=== PATIENT | female | born 1955 | race Caucasian/White ===

== ENCOUNTER → 2017-04-06 | Outpatient (CLI) | payer BC ==
--- NOTE | 2017-04-06 15:51 | XR ---
EXAMINATION TYPE: XR foot complete RT DATE OF EXAM: 04/06/2017 COMPARISON: NONE HISTORY: Pain and bruising TECHNIQUE: Three views are submitted. FINDINGS: There is a lucency through the distal phalanx of the first digit compatible with a fracture. Very mil d displacement. Remaining osseous structures intact and joint spaces preserved. IMPRESSION: 1. Minimally displaced fracture involving the body distal phalanx first digit. A Yellow message has been communicated to Stacia Parrish via the [employer] system on 04/06/2017 3:49 PM, Message ID [id number].
== END | disposition home or self-care (01) ==
LOC: RADXRYALE 15:37
PROVIDERS: ATTEND Physician Assistant Medical
DX: S92.911A Unspecified fracture of right toe(s), initial encounter for closed fracture (principal)

== ENCOUNTER → 2019-08-28 | Outpatient (CLI) | payer OTHER ==
--- NOTE | 2019-08-28 14:50 | XR ---
EXAMINATION TYPE: XR thoracic spine complete DATE OF EXAM: 08/28/2019 COMPARISON: None HISTORY: Upper Thoracic pain TECHNIQUE: Thoracic spine is examined in 3 projections. FINDINGS: Vertebral body alignment is normal. Disc heights appear preserved. There are some compressi on deformities in the lower thoracic spine. The greatest at T11 approximately 50% loss of vertebral b james height. No posterior wall displacement is evident. Superior L2 endplate compression deformity may also be present. In the frontal projection there is a scoliosis present with convexity to the right centered at T9. IMPRESSION: 1. Scoliosis. 2. Compression deformities in the region of T11 and L2 of indeterminate age. 3. Upper thoracic spine abnormalities not radiographically apparent.
== END | disposition home or self-care (01) ==
LOC: RADXRYALE 12:05
PROVIDERS: ATTEND Physician Assistant Medical
DX: M41.84 Other forms of scoliosis, thoracic region (principal); M43.8X5 Other specified deforming dorsopathies, thoracolumbar region; R93.7 Abnormal findings on diagnostic imaging of other parts of musculoskeletal system
CPT/HCPCS: 72072

== ENCOUNTER 2021-08-31 19:20 | Observation (INO) | payer MEDICARE ==
--- NOTE | 2021-08-31 19:48 | ED ---
Dizziness HPI - General Chief Complaint: Dizziness Stated Complaint: Dizziness Time Seen by Provider: 08/31/21 20:15 Source: patient, EMS Mode of arrival: EMS Limitations: no limitations - History of Present Illness Initial Comments: 65-year-old female with no reported past medical history presents the emergency department with diaphoresis, indigestion and shortness of breath. Reports that she has not felt well all day. Around 6:30 she began having chest pressure which made her diaphoretic, nauseated and thought that she was going to pass out. Patient admits to being short of breath. Denies any previous history of cardiac disease. Has not had any stress testing and a significant period of time. EMS was called and found the patient to be hypertensive. Denies previous history of hypertension. She denies any fevers or chills. No cough denies abdominal pain. No other alleviating, precipitating or modifying factors - Related Data Home Medications Medication Instructions Recorded Confirmed Calcium Carbonate [Tums] 1,000 mg PO TID PRN 08/31/21 08/31/21 FLUoxetine HCL [PROzac] 40 mg PO DAILY 08/31/21 08/31/21 HYDROcodone/APAP 5-325MG [[place] 1 tab PO Q12H PRN 08/31/21 08/31/21 5-325] Ibuprofen [Motrin] 600 mg PO Q6H PRN 08/31/21 08/31/21 Lidocaine [Lidoderm 5% Patch] 1 - 3 patch TRANSDERM DAILY 08/31/21 08/31/21 Montelukast [Singulair] 10 mg PO DAILY 08/31/21 08/31/21 Rizatriptan Odt [Maxalt Body And Frame Man] 10 mg PO DAILY PRN 08/31/21 08/31/21 Allergies Allergy/AdvReac Type Severity Reaction Status Date / Time No Known Allergies Allergy Verified 08/31/21 22:43 Review of Systems ROS Statement: Those systems with pertinent positive or pertinent negative responses have been documented in the HPI. ROS Other: All systems not noted in ROS Statement are negative. Past Medical History Past Medical History: Musculoskeletal Disorder Additional Past Medical History / Comment(s): fall in feb back pain [facility] History of Any Multi-Drug Resistant Organisms: None Reported Past Surgical History: Hysterectomy, Tonsillectomy Additional Past Surgical History / Comment(s): epidurals for pain relief Past Anesthesia/Blood Transfusion Reactions: No Reported Reaction Past Psychological History: No Psychological Hx Reported Past Alcohol Use History: None Reported Past Drug Use History: None Reported - Past Family History Mother Family Medical History: No Reported History General Exam Limitations: no limitations General appearance: alert, in no apparent distress Head exam: Present: atraumatic, normocephalic, normal inspection Eye exam: Present: normal appearance, PERRL, EOMI. Absent: scleral icterus, conjunctival injection, periorbital swelling ENT exam: Present: normal exam, mucous membranes moist Neck exam: Present: normal inspection. Absent: tenderness, meningismus, lymphadenopathy Respiratory exam: Present: normal lung sounds bilaterally. Absent: respiratory distress, wheezes, rales, rhonchi, stridor Cardiovascular Exam: Present: regular rate, normal rhythm, normal heart sounds. Absent: systolic murmur, diastolic murmur, rubs, gallop, clicks GI/Abdominal exam: Present: soft, normal bowel sounds. Absent: distended, tenderness, guarding, rebound, rigid Extremities exam: Present: normal inspection, full ROM, normal capillary refill. Absent: tenderness, pedal edema, joint swelling, calf tenderness Back exam: Present: normal inspection Neurological exam: Present: alert, oriented X3, CN II-XII intact Psychiatric exam: Present: normal affect, normal mood Skin exam: Present: warm, dry, intact, normal color. Absent: rash Course Vital Signs 08/31/21 08/31/21 08/31/21 19:27 20:34 21:13 Temperature 98 F Pulse Rate 97 87 84 Respiratory 16 Rate Blood Pressure 155/87 163/85 164/92 O2 Sat by Pulse 99 Oximetry 08/31/21 22:00 Temperature Pulse Rate 98 Respiratory Rate Blood Pressure 161/81 O2 Sat by Pulse 98 Oximetry EKG Findings - EKG Comments: EKG Findings:: EKG demonstrates sinus rhythm with a rate of 91. OH interval 134. QRS 80. QTC 389. Q waves in lead 3. No acute ST segment elevations or depressions Medical Decision Making - Medical Decision Making Upon arrival patient was placed in room 16. A thorough history and physical exam was performed. IV access is established laboratory studies were conducted. Patient remains on continuous pulse ox and cardiac monitoring. Laboratory studies are reviewed and demonstrate a negative troponin. Chest x-ray demonstrates no acute process. Due to the patient's concerning symptoms I did A heart score which is 3. She is given an aspirin and Nitropaste. I did recommend admission for which the patient did agree to. Spoke with Dr. Brandt who agreed to admit the patient - Lab Data Result diagrams: 08/31/21 19:40 08/31/21 19:40 Lab Results 08/31/21 08/31/21 08/31/21 Range/Units 19:40 19:40 19:40 WBC 6.5 (3.8-10.6) k/uL RBC 4.25 (3.80-5.40) m/uL Hgb 12.8 (11.4-16.0) gm/dL Hct 39.0 (34.0-46.0) % MCV 91.7 (80.0-100.0) fL MCH 30.2 (25.0-35.0) pg MCHC 32.9 (31.0-37.0) g/dL RDW 13.9 (11.5-15.5) % Plt Count 338 (150-450) k/uL MPV 8.2 Neutrophils % 70 % Lymphocytes % 18 % Monocytes % 8 % Eosinophils % 2 % Basophils % 1 % Neutrophils # 4.6 (1.3-7.7) k/uL Lymphocytes # 1.2 (1.0-4.8) k/uL Monocytes # 0.5 (0-1.0) k/uL Eosinophils # 0.1 (0-0.7) k/uL Basophils # 0.1 (0-0.2) k/uL PT 10.4 (9.0-12.0) sec INR 1.0 (<1.2) Sodium 137 (137-145) mmol/L Potassium 3.7 (3.5-5.1) mmol/L Chloride 105 (98-107) mmol/L Carbon Dioxide 21 L (22-30) mmol/L Anion Gap 11 mmol/L BUN 18 H (7-17) mg/dL Creatinine 0.65 (0.52-1.04) mg/dL Est GFR (CKD-EPI)AfAm >90 (>60 ml/min/1.73 sqM) Est GFR (CKD-EPI)NonAf >90 (>60 ml/min/1.73 sqM) Glucose 113 H (74-99) mg/dL Calcium 9.1 (8.4-10.2) mg/dL Total Bilirubin 0.5 (0.2-1.3) mg/dL AST 36 (14-36) U/L ALT 29 (4-34) U/L Alkaline Phosphatase 90 (38-126) U/L Troponin I (0.000-0.034) ng/mL Total Protein 7.7 (6.3-8.2) g/dL Albumin 4.1 (3.5-5.0) g/dL Lipase 71 (23-300) U/L TSH 1.720 (0.465-4.680) mIU/L 08/31/21 Range/Units 19:40 WBC (3.8-10.6) k/uL RBC (3.80-5.40) m/uL Hgb (11.4-16.0) gm/dL Hct (34.0-46.0) % MCV (80.0-100.0) fL MCH (25.0-35.0) pg MCHC (31.0-37.0) g/dL RDW (11.5-15.5) % Plt Count (150-450) k/uL MPV Neutrophils % % Lymphocytes % % Monocytes % % Eosinophils % % Basophils % % Neutrophils # (1.3-7.7) k/uL Lymphocytes # (1.0-4.8) k/uL Monocytes # (0-1.0) k/uL Eosinophils # (0-0.7) k/uL Basophils # (0-0.2) k/uL PT (9.0-12.0) sec INR (<1.2) Sodium (137-145) mmol/L Potassium (3.5-5.1) mmol/L Chloride (98-107) mmol/L Carbon Dioxide (22-30) mmol/L Anion Gap mmol/L BUN (7-17) mg/dL Creatinine (0.52-1.04) mg/dL Est GFR (CKD-EPI)AfAm (>60 ml/min/1.73 sqM) Est GFR (CKD-EPI)NonAf (>60 ml/min/1.73 sqM) Glucose (74-99) mg/dL Calcium (8.4-10.2) mg/dL Total Bilirubin (0.2-1.3) mg/dL AST (14-36) U/L ALT (4-34) U/L Alkaline Phosphatase (38-126) U/L Troponin I <0.012 (0.000-0.034) ng/mL Total Protein (6.3-8.2) g/dL Albumin (3.5-5.0) g/dL Lipase (23-300) U/L TSH (0.465-4.680) mIU/L Disposition Clinical Impression: Chest pain Disposition: ADMITTED IP TO THIS HOSP Condition: Stable Is patient prescribed a controlled substance at d/c from ED?: No Time of Disposition: 22:47 Decision to Admit Reason: Admit from EC Decision Date: 08/31/21 Decision Time: 22:47
[2021-08-31 20:52] LABS: Basophils # (A) 0.1 k/uL (0-0.2); Basophils % (A) 1 %; Eosinophils # (A) 0.1 k/uL (0-0.7); Eosinophils % (A) 2 %; HGB 12.8 gm/dL (11.4-16.0); Lymphocytes # (A) 1.2 k/uL (1.0-4.8); Lymphocytes % (A) 18 %; MCH 30.2 pg (25.0-35.0); MCHC 32.9 g/dL (31.0-37.0); MCV 91.7 fL (80.0-100.0); Mean Platelet Volume 8.2; Monocytes # (A) 0.5 k/uL (0-1.0); Monocytes % (A) 8 %; Neutrophils # (A) 4.6 k/uL (1.3-7.7); Neutrophils % (A) 70 %; Platelet Count 338 k/uL (150-450); RBC 4.25 m/uL (3.80-5.40); RDW 13.9 % (11.5-15.5); WBC 6.5 k/uL (3.8-10.6)
[2021-08-31 21:08] LABS: ALT 29 U/L (4-34); AST 36 U/L (14-36); African American GFR (CKD) >90 (>60 ml/min/1.73 sqM); Albumin 4.1 g/dL (3.5-5.0); Alkaline Phosphatase 90 U/L (38-126); Anion Gap 11 mmol/L; Blood Urea Nitrogen 18 mg/dL (7-17); Calcium 9.1 mg/dL (8.4-10.2); Carbon Dioxide 21 mmol/L (22-30); Chloride 105 mmol/L (98-107); Glucose 113 mg/dL (74-99); Lipase 71 U/L (23-300); Non-African American GFR(CKD) >90 (>60 ml/min/1.73 sqM); Potassium 3.7 mmol/L (3.5-5.1); Sodium 137 mmol/L (137-145); Total Bilirubin 0.5 mg/dL (0.2-1.3); Total Protein 7.7 g/dL (6.3-8.2)
[2021-08-31 21:14] LABS: Prothrombin Time 10.4 sec (9.0-12.0)
--- NOTE | 2021-08-31 21:21 | XR ---
EXAMINATION TYPE: XR chest 2V DATE OF EXAM: 08/31/2021 9:17 PM COMPARISON: None TECHNIQUE: XR chest 2V Frontal and lateral views of the chest. CLINICAL INDICATION:Female, 65 years old with history of chest pain; FINDINGS: Lungs/Pleura: There is no evidence of pleural effusion, focal consolidation, or pneumothorax. Pulmonary vascularity: Unremarkable. Heart/mediastinum: Cardiomediastinal silhouette is prominent in size. Musculoskeletal: No acute osseous pathology. IMPRESSION: No acute cardiopulmonary disease/process.
[2021-08-31] MEDS ORDERED: PANTOPRAZOLE 40 MG/10 ML VIAL IVP STA (22:33)
[2021-08-31] MEDS ORDERED: ASPIRIN 81 MG PO STA (22:33)
[2021-08-31] MEDS ORDERED: NITROGLYCERIN OINT 1 INCH/GM PACKET TOPICAL STA (22:36)
[2021-08-31] MEDS ORDERED: NALOXONE 0.4 MG/ML 1 ML VIAL IV PRN (22:48)
[2021-08-31] MEDS ORDERED: LIDOCAINE 5% PATCH TOPICAL STA (23:03)
[2021-09-01] MEDS ORDERED: HYDROcodone/APAP 5-325MG 1 EACH TAB PO PRN (01:32)
[2021-09-01] MEDS ORDERED: IBUPROFEN 600 MG TAB PO PRN (01:32)
[2021-09-01] MEDS ORDERED: CALCIUM CARBONATE 500 MG CHEWABLE PO PRN (01:32)
[2021-09-01] MEDS ORDERED: SUMAtriptan succinate 50 MG TAB PO PRN (01:32)
[2021-09-01 03:40] LABS: Basophils # (A) 0.1 k/uL (0-0.2); Basophils % (A) 1 %; Eosinophils # (A) 0.2 k/uL (0-0.7); Eosinophils % (A) 2 %; HCT 38.6 % (34.0-46.0); HGB 12.4 gm/dL (11.4-16.0); Lymphocytes # (A) 2.2 k/uL (1.0-4.8); Lymphocytes % (A) 32 %; MCH 29.6 pg (25.0-35.0); MCHC 32.2 g/dL (31.0-37.0); MCV 91.8 fL (80.0-100.0); Mean Platelet Volume 7.2; Monocytes # (A) 0.5 k/uL (0-1.0); Monocytes % (A) 7 %; Neutrophils # (A) 3.6 k/uL (1.3-7.7); Neutrophils % (A) 54 %; Platelet Count 304 k/uL (150-450); RBC 4.21 m/uL (3.80-5.40); RDW 13.9 % (11.5-15.5); WBC 6.7 k/uL (3.8-10.6)
[2021-09-01 04:09] LABS: African American GFR (CKD) >90 (>60 ml/min/1.73 sqM); Anion Gap 9 mmol/L; Blood Urea Nitrogen 17 mg/dL (7-17); Carbon Dioxide 22 mmol/L (22-30); Chloride 106 mmol/L (98-107); Glucose 111 mg/dL (74-99); Non-African American GFR(CKD) >90 (>60 ml/min/1.73 sqM); Potassium 3.6 mmol/L (3.5-5.1); Sodium 137 mmol/L (137-145)
--- NOTE | 2021-09-01 05:21 | P.HPIM ---
History of Present Illness H&P Date: 08/31/21 Chief Complaint: chest pain 65 year old female with no significant past medical history patient comes in with complaint of sudden onset chest pain , she reports that she was not feeling well all day, but suddenly around 6 pm she experienced central chest pressure and tightness, profuse sweating, dizziness. she also reports recently she has been experiencing exercise intolerance, she never had any cardiac workup before. she took some tums at home with no improvement , she eventually decided to come in for evaluation at the hospital she reports no pain at this time of evaluation , after she received aspirin and nitro in the ED. initial workup unremarkable , EKG NSR, no acute ST changes , trops negative Review of Systems Pertinent positives as noted in HPI. All other systems were reviewed and are negative Past Medical History Past Medical History: Musculoskeletal Disorder Additional Past Medical History / Comment(s): fall in feb back pain [facility] History of Any Multi-Drug Resistant Organisms: None Reported Past Surgical History: Hysterectomy, Tonsillectomy Additional Past Surgical History / Comment(s): epidurals for pain relief Past Anesthesia/Blood Transfusion Reactions: No Reported Reaction Past Psychological History: No Psychological Hx Reported Smoking Status: Never smoker Past Alcohol Use History: None Reported Past Drug Use History: None Reported - Past Family History Mother Family Medical History: No Reported History Medications and Allergies Home Medications Medication Instructions Recorded Confirmed Type Calcium Carbonate [Tums] 1,000 mg PO TID PRN 08/31/21 08/31/21 History FLUoxetine HCL [PROzac] 40 mg PO DAILY 08/31/21 08/31/21 History Ibuprofen [Motrin] 600 mg PO Q6H PRN 08/31/21 08/31/21 History Lidocaine [Lidoderm 5% Patch] 1 - 3 patch TRANSDERM DAILY 08/31/21 08/31/21 History Montelukast [Singulair] 10 mg PO DAILY 08/31/21 08/31/21 History RX: HYDROcodone/APAP 5-325MG 1 tab PO Q12H PRN 08/31/21 08/31/21 History [[place] 5-325] Rizatriptan Odt [Maxalt Gis Technician] 10 mg PO DAILY PRN 08/31/21 08/31/21 History Allergies Allergy/AdvReac Type Severity Reaction Status Date / Time No Known Allergies Allergy Verified 08/31/21 22:43 Physical Exam Vitals: Vital Signs Temp Pulse Pulse Resp BP BP Pulse Ox 09/01/21 04:52 18 L 09/01/21 03:54 98.1 F 90 18 143/80 97 09/01/21 02:28 89 149/78 08/31/21 22:00 98 161/81 98 08/31/21 21:13 84 164/92 08/31/21 20:34 87 163/85 08/31/21 19:27 98 F 97 16 155/87 99 Intake and Output 08/31/21 08/31/21 09/01/21 14:59 22:59 06:59 Other: # Voids 1 Weight 74.843 kg 74.843 kg Constitutional: No acute distress, conversant, pleasant Eyes: Anicteric sclerae, moist conjunctiva, Pupils equal round reactive to light ENMT: NC/AT Oropharynx clear, no erythema, or exudates Neck: Supple, FROM, no masses, or JVD No carotid bruits No thyromegaly Lungs: Clear to auscultation Clear to percussion Normal respiratory effort, no accessory muscle use Cardiovascular: Heart regular in rate and rhythm, No murmurs, gallops, or rubs No peripheral edema Abdominal: Soft Nontender, no guarding, rebound or rigidity Abdomen moving with respiration Normoactive bowel sounds No hepatomegaly, No splenomegaly No palpable mass No abdominal wall hernia noted Skin: Normal temperature, tone, texture, turgor No induration No subcutaneous nodules No rash, lesions No ulcers Extremities: No digital cyanosis No clubbing Pedal pulses intact and symmetrical Radial pulses intact and symmetrical No calf tenderness Psychiatric: Alert and oriented to person, place and time Appropriate affect fair judgement Neuro Muscles Strength 5/5 in all 4 extremities Sensation to light touch grossly present throughout Cranial nerves II-XII grossly intact No focal sensory deficits Lymphatics: no palpable cervical or supraclavicular , or inguinal lymph nodes Results CBC & Chem 7: 09/01/21 03:32 09/01/21 03:32 Labs: Abnormal Lab Results - Last 24 Hours (Table) 08/31/21 09/01/21 Range/Units 19:40 03:32 Carbon Dioxide 21 L (22-30) mmol/L BUN 18 H (7-17) mg/dL Glucose 113 H 111 H (74-99) mg/dL Thrombosis Risk Factor Assmnt - Choose All That Apply Any of the Below Risk Factors Present?: No Other Risk Factors: Yes Each Risk Factor Represents 2 Points: Age 61-74 years Thrombosis Risk Factor Assessment Total Risk Factor Score: 2 Thrombosis Risk Factor Assessment Level: Low Risk Assessment and Plan Assessment: atypical chest pain rule out ACS EKG no acute changes CXR no acute pathology trops negative X2 secured entrance monitor monitor vital signs ASA, statin cardiology consult A1c, lipid panel , TSH pain control Full code DVT prophylaxis heparin subcutaneous
[2021-09-01 07:25] VITALS: RESP 16
[2021-09-01] MEDS ORDERED: PANTOPRAZOLE 40 MG TABLET PO SCH (07:30)
[2021-09-01] MEDS ORDERED: HEPARIN SODIUM,PORCINE/PF 5,000 UNIT/0.5 ML SYRINGE SQ SCH (08:00)
[2021-09-01] MEDS ORDERED: LIDOCAINE 5% PATCH TOPICAL SCH (09:00)
[2021-09-01] MEDS ORDERED: MONTELUKAST 10 MG TAB PO SCH (09:00)
[2021-09-01] MEDS ORDERED: DOBUTamine DRIP for NUC MED 500 MG in DEXTROSE/WATER 1 250ML.BAG IV PRN (09:00)
[2021-09-01] MEDS ORDERED: FLUoxetine HCL 20 MG CAP PO SCH (09:00)
[2021-09-01] MEDS ORDERED: ATORVASTATIN 20 MG TAB PO SCH (09:00)
--- NOTE | 2021-09-01 09:56 | CA ---
Transthoracic Echo Report Name: Carly Welsh Age: 65 Gender: F : 1955 Exam Date: 09/01/2021 08:27 Exam Location: [place] [facility] Ht (in): 61 Wt (lb): 165 Ordering Physician: Beatriz Chaves Attending/Referring Phys: Supervisor [employer] Procedure CPT: Indications: chest pain, LV function Cardiac Hx: Technical Quality: Good Contrast 1: Total Dose (mL): Contrast 2: Total Dose (mL): MEASUREMENTS (Male / Female) Normal Values 2D ECHO LV Diastolic Diameter PLAX 2.8 cm 4.2 - 5.9 / 3.9 - 5.3 cm LV Systolic Diameter PLAX 1.9 cm IVS Diastolic Thickness 1.2 cm 0.6 - 1.0 / 0.6 - 0.9 cm LVPW Diastolic Thickness 1.2 cm 0.6 - 1.0 / 0.6 - 0.9 cm LV Relative Wall Thickness 0.8 RV Internal Dim ED PLAX 1.9 cm LA Volume 19.3 cm??? 18 - 58 / 22 - 52 cm??? M-MODE Aortic Root Diameter MM 3.0 cm LA Systolic Diameter MM 2.7 cm LA Ao Ratio MM 0.9 MV E Point Septal Separation 0.8 cm AV Cusp Separation MM 2.0 cm DOPPLER AV Peak Velocity 131.4 cm/s AV Peak Gradient 6.9 mmHg MV Area PHT 4.6 cm??? MR Peak Velocity 143.2 cm/s MR Peak Gradient 8.2 mmHg Mitral E Point Velocity 66.5 cm/s Mitral A Point Velocity 83.0 cm/s Mitral E to A Ratio 0.8 MV Deceleration Time 165.7 ms MV E' Velocity 8.7 cm/s Mitral E to MV E' Ratio 7.7 TR Peak Velocity 242.8 cm/s TR Peak Gradient 23.6 mmHg Right Ventricular Systolic Press 28.1 mmHg FINDINGS Left Ventricle Mildly increased septal wall thickness. Mildly increased posterior wall thickness. Left ventricular ejection fraction is estimated at 55-60 %. Left ventricular cavity size normal. Right Ventricle The right ventricle is normal in size and function. Right Atrium The right atrium is normal in size. Left Atrium The left atrium is normal in size. Mitral Valve Structurally normal mitral valve without significant stenosis or prolapse. There is mild mitral regurgitation. Aortic Valve Structurally normal aortic valve without significant sclerosis or stenosis. There is no aortic regurgitation. Focal thickening of the aortic valve cusps. Tricuspid Valve Structurally normal tricuspid valve without significant stenosis. Pulmonary artery systolic pressure is normal. Mild tricuspid regurgitation. Pulmonic Valve Structurally normal pulmonic valve without significant stenosis. There is no pulmonic regurgitation. Pericardium Normal pericardium without effusion. Aorta Normal aortic root dimension. CONCLUSIONS 1. Normal left ventricle size and systolic function 2. Mild mitral and tricuspid regurgitation 3. No pericardial effusion. Previewed by: Dr. Mauricio Segovia MD (Electronically Signed) Final Date: 01 September 2021 09:55
--- NOTE | 2021-09-01 09:58 | P.CRDCN ---
History of Present Illness History of present illness: This is a 65 year old female with a past medical history of AV malformation, CVA early , borderline dyslipidemia per patient, chronic back pain, sciatica, migraines. She has been monitoring her BP with her PCP has not been started on antihypertensives. She does not follow with a founder / ceo. We are asked to see in consultation chest pain. Patient presented to the ER with episode of chest discomfort. Yesterday, she states she was not doing much activity since she recently helped a friend the day prior and was tired. Around 6pm she had acute onset chest burning upper anterior chest, underneath her jaw. She tried multiple anti-acids with no improvement. She had associated shortness of breath, diaphoresis and lightheadedness. It lasted for about an hour. No specific aggravating or alleviating factors. She states it did not resolve until after to presented to the ER. She did receive nitro and aspirin. Her chest pain has resolved. She denies any history of CAD, SC, Diabetes. Father had a history of heart failure. She is a non-smoker. DIAGNOSTICS EKG reveals sinus rhythm, heart rate 91, T wave inversion in lead III, no acute ST-T wave abnormalities to suggest ischemia echocardiogram revealed an EF of 5560%, mildly increased septal wall thickness, mildly increased posterior wall thickness, mild mitral regurgitation, mild tricuspid regurgitation Telemetry tracings indicate sinus rhythm with heart rates in the 80s-90s Chest xray no acute cardiopulmonary process Laboratory reviewed,troponin negative 3, CBC unremarkable, sodium 137, potassium 3.6, BUN 17, serum creatinine 0.6, hemoglobin A1c 5.8, TSH within normal limits. Current home medications include Rizatriptan, Singulair, lidocaine, Motrin, [place], Prozac, times REVIEW OF SYSTEMS At the time of my exam: CONSTITUTIONAL: Denies fever or chills. CARDIOVASCULAR: +chest pain, +shortness of breath, Denies orthopnea, PND or palpitations. RESPIRATORY: Denies cough. GASTROINTESTINAL: Denies abdominal pain, diarrhea, constipation, nausea or vomiting. MUSCULOSKELETAL: Denies myalgias. NEUROLOGIC: Denies numbness, tingling, headache or weakness. ENDOCRINE: Denies fatigue, weight change, polydipsia or polyurina. GENITOURINARY: Denies burning, hematuria or urgency with micturation. HEMATOLOGIC: Denies history of anemia or bleeding. PHYSICAL EXAMINATION Blood [id number], heart rate 85, afebrile, saturations 96% on room air CONSTITUTIONAL: No apparent distress. HEENT: Head is normocephalic. Pupils are equal, round. Sclerae anicteric. Mucous membranes of the mouth are moist. No JVD. No carotid bruit. CHEST EXAMINATION: Lungs are clear to auscultation. No chest wall tenderness is noted on palpation or with deep breathing. HEART EXAMINATION: Regular rate and rhythm. S1, S2 heard. No murmurs, gallops or rub. ABDOMEN: Soft, nontender. Positive bowel sounds. EXTREMITIES: 2+ peripheral pulses, no lower extremity edema and no calf tenderness. SKIN: warm, dry NEUROLOGIC EXAMINATION: Patient is awake, alert and oriented x3. ASSESSMENT Chest pain, atypical, acute coronary syndrome has ruled out History of AV malformation History of CVA early History of dyslipidemia Chronic back pain Sciatica History of migraines PLAN An acute coronary event has been ruled out with no EKG evidence of ischemia and negative cardiac enzymes. Lipid panel pending Perform Dobutamine stress echo test to assess for stress induced cardiac ischemia. If abnormal will consider coronary angiography. If stress test is negative for stress induced ischemia, no further inpatient workup from a cardiology perspective . Thank you kindly for this consultation. Nurse practitioner note has been reviewed by physician. Signing provider agrees with the documented findings, assessment, and plan of care. Past Medical History Past Medical History: Musculoskeletal Disorder Additional Past Medical History / Comment(s): fall in feb back pain [facility] History of Any Multi-Drug Resistant Organisms: None Reported Past Surgical History: Hysterectomy, Tonsillectomy Additional Past Surgical History / Comment(s): epidurals for pain relief Past Anesthesia/Blood Transfusion Reactions: No Reported Reaction Past Psychological History: No Psychological Hx Reported Smoking Status: Never smoker Past Alcohol Use History: None Reported Past Drug Use History: None Reported - Past Family History Mother Family Medical History: No Reported History Medications and Allergies Home Medications Medication Instructions Recorded Confirmed Type Calcium Carbonate [Tums] 1,000 mg PO TID PRN 08/31/21 08/31/21 History FLUoxetine HCL [PROzac] 40 mg PO DAILY 08/31/21 08/31/21 History HYDROcodone/APAP 5-325MG [[place] 1 tab PO Q12H PRN 08/31/21 08/31/21 History 5-325] Ibuprofen [Motrin] 600 mg PO Q6H PRN 08/31/21 08/31/21 History Lidocaine [Lidoderm 5% Patch] 1 - 3 patch TRANSDERM DAILY 08/31/21 08/31/21 History Montelukast [Singulair] 10 mg PO DAILY 08/31/21 08/31/21 History Rizatriptan Odt [Maxalt Pathological Technician] 10 mg PO DAILY PRN 08/31/21 08/31/21 History Allergies Allergy/AdvReac Type Severity Reaction Status Date / Time No Known Allergies Allergy Verified 08/31/21 22:43 Physical Exam Vitals: Vital Signs Temp Pulse Pulse Resp BP BP BP 09/01/21 07:00 97.7 F 85 16 130/63 09/01/21 04:52 18 L 09/01/21 03:54 98.1 F 90 18 143/80 09/01/21 02:28 89 149/78 08/31/21 22:00 98 161/81 08/31/21 21:13 84 164/92 08/31/21 20:34 87 163/85 08/31/21 19:27 98 F 97 16 155/87 Pulse Ox 09/01/21 07:00 96 09/01/21 04:52 09/01/21 03:54 97 09/01/21 02:28 08/31/21 22:00 98 08/31/21 21:13 08/31/21 20:34 08/31/21 19:27 99 Intake and Output 08/31/21 09/01/21 09/01/21 22:59 06:59 14:59 Other: # Voids 1 Weight 74.843 kg 74.843 kg Results 09/01/21 03:32 09/01/21 03:32 Cardiac Enzymes 08/31/21 08/31/21 08/31/21 Range/Units 19:40 19:40 23:46 AST 36 (14-36) U/L Troponin I <0.012 <0.012 (0.000-0.034) ng/mL 09/01/21 Range/Units 03:32 AST (14-36) U/L Troponin I <0.012 (0.000-0.034) ng/mL Coagulation 07/11/22 Range/Units 19:40 PT 10.4 (9.0-12.0) sec CBC 08/31/21 09/01/21 Range/Units 19:40 03:32 WBC 6.5 6.7 (3.8-10.6) k/uL RBC 4.25 4.21 (3.80-5.40) m/uL Hgb 12.8 12.4 (11.4-16.0) gm/dL Hct 39.0 38.6 (34.0-46.0) % Plt Count 338 304 (150-450) k/uL Comprehensive Metabolic Panel 08/31/21 09/01/21 Range/Units 19:40 03:32 Sodium 137 137 (137-145) mmol/L Potassium 3.7 3.6 (3.5-5.1) mmol/L Chloride 105 106 (98-107) mmol/L Carbon Dioxide 21 L 22 (22-30) mmol/L BUN 18 H 17 (7-17) mg/dL Creatinine 0.65 0.68 (0.52-1.04) mg/dL Glucose 113 H 111 H (74-99) mg/dL Calcium 9.1 9.0 (8.4-10.2) mg/dL AST 36 (14-36) U/L ALT 29 (4-34) U/L Alkaline Phosphatase 90 (38-126) U/L Total Protein 7.7 (6.3-8.2) g/dL Albumin 4.1 (3.5-5.0) g/dL Current Medications Generic Name Dose Route Start Last Admin Trade Name Freq PRN Reason Stop Dose Admin Hydrocodone Bitart/Acetaminophen 1 each 09/01/21 01:32 09/01/21 02:21 Hydrocodone/Apap 5-325mg 1 Each Tab PO 1 each Q12H PRN Administration Pain Atorvastatin Calcium 20 mg 09/01/21 09:00 Atorvastatin 20 Mg Tab PO DAILY CHRISTINA Calcium Carbonate/Glycine 1,000 mg 09/01/21 01:32 Calcium Carbonate 500 Mg Chewable PO TID PRN Heartburn Fluoxetine HCl 40 mg 09/01/21 09:00 Fluoxetine Hcl 20 Mg Cap PO DAILY CHRISTINA Heparin Sodium (Porcine) 5,000 unit 09/01/21 08:00 Heparin Sodium,Porcine/Pf 5,000 Unit/0.5 Ml Syringe SQ Q8HR CHRISTINA Ibuprofen 600 mg 09/01/21 01:32 Ibuprofen 600 Mg Tab PO Q6H PRN Pain Lidocaine 2 patch 09/01/21 09:00 Lidocaine 5% Patch TOPICAL DAILY [facility] Protocol Montelukast Sodium 10 mg 09/01/21 09:00 Montelukast 10 Mg Tab PO DAILY [facility] Naloxone HCl 0.2 mg 08/31/21 22:48 Naloxone 0.4 Mg/Ml 1 Ml Vial IV Q2M PRN Opioid Reversal Pantoprazole Sodium 40 mg 09/01/21 07:30 Pantoprazole 40 Mg Tablet PO AC-BRKFST [facility] Sumatriptan Succinate 100 mg 09/01/21 01:32 09/01/21 05:22 Sumatriptan Succinate 50 Mg Tab PO 100 mg DAILY PRN Administration Migraine Headache Intake and Output 08/31/21 09/01/21 09/01/21 22:59 06:59 14:59 Other: # Voids 1 Weight 74.843 kg 74.843 kg 09/01/21 03:32 09/01/21 03:32
[2021-09-01 10:28] LABS: Chol/HDL Ratio 7.99 Ratio; LDL Cholesterol,Calculated 176.9 mg/dL (0.0-131.0)
[2021-09-01] MEDS ORDERED: DOBUTamine DRIP for NUC MED 500 MG/250 ML BAG IV ONE (11:09)
--- NOTE | 2021-09-01 12:54 | CA ---
Dobutamine Stress Echocardiogram Report Carly Welsh Age: 65 Gender: F : 1955 Exam Date: 09/01/2021 11:04 Exam Location: [facility] Ordering Physician: Beatriz Chaves Referring Physician: , [employer] Senior Officer: VCI, Technologist: Ht (in): 61 Wt (lb): 160 Procedure CPT: Indication: Chest Pain ICD-9 Codes: Rhythm: Patient History: Chest pain Short of breath and palpitations Cardiac Medications: Medications in past 24 hours: Contrast: Total Dose (mL): Stress Results Protocol: Dobutamine Peak Dose (???g/kg/min): 30 Duration (min:sec): Atropine:(mg) Target HR: 133 Double Product: [id number] Resting HR: 89 Resting BP: 148 / 85 Peak HR: 137 Peak BP: 207 / 50 Max Predicted HR: 157 87 % Max Predicted HR Stress Summary: BP Response: Normal Reason for Termination: Exceeded target heart rate (85% max predicted) Cardiac Symptoms: Test terminated after reaching target heart rate (85% max predicted) ECG Analysis Resting EKG: Sinus mechanism, normal axis and intervals, no acute ST segment abnormality Stress EKG: Normal electrocardiographic response to dobutamine infusion with no evidence of stress-induced ischemia Arrhythmia: Echo Analysis Base Echo Analysis: Normal left ventricle size and systolic function Low Echo Anaylsis: No evidence of segmental wall motion abnormality Peak Echo Analysis: Normal wall thickening and augmentation with no hypokinesis or dyskinesis Recovery Echo: Normal segmental wall motion MEASUREMENTS (Male/Female) Normal Values CONCLUSIONS 1. Normal electrocardiographic response to dobutamine infusion 2. Normal stress echocardiogram with no evidence of stress induced ischemia. Dr. Mauricio Segovia MD (Electronically Signed) Final Date: 01 September 2021 12:53
[2021-09-01] MEDS ORDERED: amLODIPine 5 MG TAB PO STA (13:19)
[2021-09-01 13:43] VITALS: BP 171/77; PULSE 102; TEMP 98.5
--- NOTE | 2021-09-01 15:10 | P.DS ---
Providers Date of admission: 08/31/21 22:45 Attending physician: Itz Perdue MD Consults: 08/31/21 22:48 Consult Physician Urgent Consulting Provider: [facility] Consult Reason/Comments: acute chest pain, possible acs Do you want consulting provider notified?: Already Contacted Primary care physician: Diony [facility] Hospital Course: This is a 65-year-old lady who presented with atypical chest pain. EKG and troponins were negative. Echocardiogram was done and revealed preserved EF with no wall motion abnormalities. Dobutamine stress echo was done and negative. She was evaluated by cardiology and they have cleared for discharge. On evaluation, she is currently chest pain-free denying any symptoms. Chest pain resolved with Protonix and Tums therefore likely GERD in nature. She has had some hypertension for which amlodipine was prescribed. She is advised follow-up within 3 days for BP check. All questions were answered. Discharge diagnoses 1. Apical chest pain, likely GERD, resolved 2. Hypertension 3. Hyperlipidemia Discharge coordination time greater than 30 minutes Vitals: Reviewed General: No acute distress HEENT: Mucous membranes moist, neck supple Cardiovascular: RRR, S1-S2 Lungs: Breath sounds equal and clear to auscultation bilaterally. No wheezing, rhonchi or rales Abdomen: Soft, nontender, nondistended Extremities: No lower extremity edema Patient Condition at Discharge: Good Plan - Discharge Summary Discharge Rx Participant: No New Discharge Prescriptions: New Pantoprazole [Protonix] 40 mg PO AC-BRKFST 30 Days #30 tab Atorvastatin [Lipitor] 20 mg PO DAILY 30 Days #30 tab amLODIPine [Norvasc] 5 mg PO DAILY 30 Days #30 tab Continue Rizatriptan Odt [Maxalt TECHNICAL HEALTHCARE CONSULTANT] 10 mg PO DAILY PRN PRN Reason: Migraine Headache Calcium Carbonate [Tums] 1,000 mg PO TID PRN PRN Reason: Heartburn Lidocaine [Lidoderm 5% Patch] 1 - 3 patch TRANSDERM DAILY Montelukast [Singulair] 10 mg PO DAILY Ibuprofen [Motrin] 600 mg PO Q6H PRN PRN Reason: Pain FLUoxetine HCL [PROzac] 40 mg PO DAILY HYDROcodone/APAP 5-325MG [[place] 5-325] 1 tab PO Q12H PRN PRN Reason: Pain Discharge Medication List Calcium Carbonate [Tums] 1,000 mg PO TID PRN 07/11/22 [History] FLUoxetine HCL [PROzac] 40 mg PO DAILY 08/31/21 [History] HYDROcodone/APAP 5-325MG [[place] 5-325] 1 tab PO Q12H PRN 08/31/21 [History] Ibuprofen [Motrin] 600 mg PO Q6H PRN 08/31/21 [History] Lidocaine [Lidoderm 5% Patch] 1 - 3 patch TRANSDERM DAILY 08/31/21 [History] Montelukast [Singulair] 10 mg PO DAILY 08/31/21 [History] Rizatriptan Odt [Maxalt TECHNICAL HEALTHCARE CONSULTANT] 10 mg PO DAILY PRN 08/31/21 [History] Atorvastatin [Lipitor] 20 mg PO DAILY 30 Days #30 tab 09/01/21 [Rx] Pantoprazole [Protonix] 40 mg PO AC-BRKFST 30 Days #30 tab 09/01/21 [Rx] amLODIPine [Norvasc] 5 mg PO DAILY 30 Days #30 tab 09/01/21 [Rx] Follow up Appointment(s)/Referral(s): Diony Bagley DO [Primary Care Provider] - 1-2 days Activity/Diet/Wound Care/Special Instructions: As discussed, please keep a log of your blood pressures at home and present them to your PCP in 3 days you have been prescribed amlodipine 5 mg daily for high blood pressure. If her blood pressure becomes low or he become lightheaded at home please discontinue this medication you have been prescribed atorvastatin for high cholesterol Discharge Disposition: HOME SELF-CARE
== END 2021-09-01 15:26 | disposition home or self-care (01) ==
LOC: EC 19:20 → 6NMEDSUR 22:45
PROVIDERS: ADMIT Internal Medicine; ATTEND Internal Medicine
DX: R07.89 Other chest pain (principal); I10 Essential (primary) hypertension; E78.5 Hyperlipidemia, unspecified; I08.1 Rheumatic disorders of both mitral and tricuspid valves; R42 Dizziness and giddiness; R61 Generalized hyperhidrosis; K30 Functional dyspepsia; G89.29 Other chronic pain; M54.9 Dorsalgia, unspecified; M54.30 Sciatica, unspecified side; R06.02 Shortness of breath; Q27.30 Arteriovenous malformation, site unspecified; G43.909 Migraine, unspecified, not intractable, without status migrainosus; R11.0 Nausea; Z79.899 Other long term (current) drug therapy; Z90.710 Acquired absence of both cervix and uterus; Z98.890 Other specified postprocedural states; Z91.81 History of falling; Z86.73 Personal history of transient ischemic attack (TIA), and cerebral infarction without residual deficits; Z82.49 Family history of ischemic heart disease and other diseases of the circulatory system
CPT/HCPCS: 96374; 99285; 36415; 93005; 93306; 93351; 80061; 80053; 80048; 84443 ×2; 83605; 83690; 84484 ×2; 85025 ×2; 85610; 83036; 71046; G0378 ×2; J1250; C9113

== ENCOUNTER → 2021-10-27 | Outpatient (CLI) | payer MEDICARE ==
--- NOTE | 2021-10-27 09:12 | US ---
EXAMINATION TYPE: US abdomen complete DATE OF EXAM: 10/27/2021 COMPARISON: CT abdomen and pelvis July 07, 2010 CLINICAL HISTORY: R10.10 UPPER ABDOMINAL PAIN, UNSPECIFIED. Generalized ABD pain TECHNIQUE: Multiple sonographic images of the abdomen are obtained. FINDINGS: EXAM MEASUREMENTS: Liver Length: 14.5 cm Gallbladder Wall: 0.2 cm CBD: 0.5 cm Spleen: 10.2 cm Right Kidney: 9.5 x 5.1 x 5.2 cm Left Kidney: 10.0 x 5.3 x 4.1 cm MOLD MAKER PLASTIC MOLDS NOTES: Pancreas: wnl, tail obscured by overlying bowel gas Liver: Increased attenuation Gallbladder: wnl Evidence for sonographic Crisostomo's sign: No CBD: wnl Spleen: wnl Right Kidney: wnl, upper and lower poles gassed out Left Kidney: wnl Upper IVC: wnl Abd Aorta: wnl The visualized liver is slightly heterogeneously hyperechoic. No biliary dilatation or focal mass is identified. The intrahepatic portion of the IVC and proximal abdominal aorta are within normal limits . There is no evidence of cholelithiasis. Common bile duct is unremarkable. The visualized portion s of the pancreas are homogenous. The spleen is unremarkable. Kidneys are symmetric and free of hyd ronephrosis. No renal lesions are seen. IMPRESSION: No acute findings are evident.
== END | disposition home or self-care (01) ==
LOC: RADUSWWP 08:18
PROVIDERS: ATTEND Family Medicine
DX: R10.10 Upper abdominal pain, unspecified (principal)
CPT/HCPCS: 76700

== ENCOUNTER → 2021-12-24 | Outpatient (CLI) | payer MEDICARE ==
--- NOTE | 2021-12-25 10:15 | CT ---
EXAMINATION TYPE: CT abdomen pelvis w con DATE OF EXAM: 12/24/2021 COMPARISON: 07/07/2010 INDICATION: Epigastric pain DLP: 942.7 mGycm, Automated exposure control for dose reduction was used. CONTRAST: 70 mL of Isovue 300. Study performed with Oral Contrast TECHNIQUE: Axial images were obtained from above the diaphragm to the pubic rami in the axial plane a t 5 mm thick sections. Reconstructed images are reviewed on the computer in the coronal plane. FINDINGS: Limited CT sections are obtained the lung bases. The lung bases are clear. CT ABDOMEN: Liver: Normal Spleen: Normal Pancreas: Normal Adrenal glands: The adrenal glands are normal. Gallbladder: Normal Kidneys: No masses are evident. No hydronephrosis is present. No cysts are present. Delayed images were obtained through the kidneys, which remain unremarkable. Aorta: Normal Inferior vena cava: Normal. CT PELVIS: Loops of bowel within the abdomen and pelvis are normal. There are loops of bowel which are incom pletely distended or lack oral contrast limiting their evaluation. Appendix: Normal as visualized. Urinary bladder: Normal. Genitourinary structures: There is some prominence of the right adnexal region. A 1.3 cm complex cyst is not excluded. This could be further evaluated with ultrasound. Uterus is not identified. Left ova ry is not identified. Osseous structures: No suspicious lytic or sclerotic lesions. IMPRESSIONS: 1. Maybe a small complex cyst on the right ovary measuring 1.3 cm. Consider evaluation with ultrasou nd. 2. No suspicious abnormality to account for epigastric pain.
== END | disposition home or self-care (01) ==
LOC: RADCTMAIN 11:22
PROVIDERS: ATTEND Family Medicine
DX: R10.13 Epigastric pain (principal); R79.9 Abnormal finding of blood chemistry, unspecified
CPT/HCPCS: 74177; 36415; Q9967

== ENCOUNTER → 2022-01-11 | Outpatient (CLI) | payer MEDICARE ==
--- NOTE | 2022-01-11 14:44 | US ---
EXAMINATION TYPE: US transvaginal DATE OF EXAM: 01/11/2022 COMPARISON: CT 12/24/2021 CLINICAL HISTORY: R93.3 ABNORMAL FINDING ON OTHER IMAGES. TECHNIQUE: . Transvaginal sonographic images were obtained EXAM MEASUREMENTS: Uterus: Surgically absent Right Ovary: 2.8 x 1.9 x 2.2 cm Left Ovary: 2.0 x 1.2 x 1.2 cm 1. Uterus: Surgically absent 2. Endometrium: Surgically absent 3. Right Ovary: Complex cystic mass (seen on CT) 2.1 x 1.4 x 1.5cm 4. Left Ovary: wnl 5. Bilateral Adnexa: wnl 6. Posterior cul-de-sac: wnl IMPRESSION: Complex cystic mass right ovary is confirmed. Follow-up study in 6 weeks is advised.
== END | disposition home or self-care (01) ==
LOC: RADUSWWP 13:43
PROVIDERS: ATTEND Family Medicine
DX: N83.201 Unspecified ovarian cyst, right side (principal); R93.3 Abnormal findings on diagnostic imaging of other parts of digestive tract
CPT/HCPCS: 76830

== ENCOUNTER → 2022-01-27 | Outpatient (CLI) | payer MEDICARE ==
--- NOTE | 2022-01-27 15:28 | XR ---
EXAMINATION TYPE: XR sacrum coccyx DATE OF EXAM: 01/27/2022 COMPARISON: NONE HISTORY: pain Three views are submitted. Sacrum is intact. SI joints are symmetric. Coccyx appears to be intact. Visualized pelvic structures intact. Diffuse osteopenia with osteitis condense sense pubis. Chroni c appearing deformity of the right inferior pubic ramus suggestive of prior trauma. Spina bifida occu lta of the sacrum. IMPRESSION: 1. No acute fracture.
== END | disposition home or self-care (01) ==
LOC: RADXRYALE 15:06
PROVIDERS: ATTEND Physician Assistant
DX: M54.59 Other low back pain (principal)
CPT/HCPCS: 72220

== ENCOUNTER → 2022-05-18 | Outpatient (CLI) | payer MEDICARE ==
--- NOTE | 2022-05-18 15:01 | XR ---
EXAMINATION TYPE: XR chest 2V DATE OF EXAM: 05/18/2022 COMPARISON: Chest x-ray August 31, 2021 HISTORY: COVID 19 and cough. TECHNIQUE: Frontal and lateral views of the chest are obtained. FINDINGS: There is no suspicious focal air space opacity, pleural effusion, or pneumothorax seen. T he cardiac silhouette size is stable and within normal limits. Dextroconvex scoliosis centered in the lower thoracic spine is redemonstrated. IMPRESSION: No acute cardiopulmonary process. No significant change from most recent prior x-ray.
== END | disposition home or self-care (01) ==
LOC: RADXRYALE 14:45
PROVIDERS: ATTEND Physician Assistant
DX: R05.9 Cough, unspecified (principal); Z86.16 Personal history of COVID-19
CPT/HCPCS: 71046

== ENCOUNTER 2022-05-21 11:35 | Day surgery (SDC) | payer MEDICARE ==
[~2022-05-21 11:35] MED LIST: ACETAMINOPHEN TAB 500 MG TAB PO PRN; DEXAMETHASONE SOD PHOSPHATE 4 MG/ML 1 ML VIAL IV ONE; HEPARIN SODIUM,PORCINE/PF 5,000 UNIT/0.5 ML SYRINGE SQ PRN; LIDOCAINE 1% (10MG/ML) FOR IV START INTRADERMA PRN; ONDANSETRON 4 MG/2 ML VIAL IVP ONE
[2022-05-21] MEDS: LACTATED RINGERS 1,000 ML IV SCH ×2 (12:47→13:35)
[2022-05-21] MEDS ORDERED: BUPIVACAIN-EPI 0.25%-1:200,000 30 ML VIAL SQ ONE ×2 (13:26→14:00)
[2022-05-21] MEDS ORDERED: SODIUM CHLORIDE 4MEQ/ML 30 ML VIAL IV ONE (13:34)
[2022-05-21] MEDS ORDERED: PROPOFOL 10 MG/ML 20 ML VIAL IV ONE (13:34)
[2022-05-21] MEDS ORDERED: ROCURONIUM 10 MG/ML (5 ML VIAL) IV ONE (13:34)
[2022-05-21] MEDS ORDERED: LIDOCAINE 2% INJ 20 MG/ML (2 ML VIAL) ONE (13:34)
[2022-05-21] MEDS ORDERED: NEOSTIGMINE 1 MG/ML 10 ML VIAL ONE (13:34)
[2022-05-21] MEDS ORDERED: SUCCINYLCHOLINE CHLORIDE 200 MG/10 ML VIAL IV ONE (13:34)
[2022-05-21] MEDS ORDERED: MIDAZOLAM 2 MG/2 ML VIAL ONE (13:34)
[2022-05-21] MEDS ORDERED: fentaNYL (PF) 50 MCG/ML 2 ML AMP ONE (13:34)
[2022-05-21] MEDS ORDERED: KETOROLAC 15 MG/ML 1 ML VIAL ONE (13:34)
[2022-05-21] MEDS ORDERED: KETAMINE 10 MG/ML 20 ML VIAL ONE (13:34)
[2022-05-21] MEDS ORDERED: LACTATED RINGERS 1,000 ML IV ONE (14:23)
[2022-05-21] MEDS ORDERED: ONDANSETRON 4 MG/2 ML VIAL IVP PRN (14:31)
--- NOTE | 2022-05-21 14:31 | P.OP ---
Date of Procedure: 05/21/22 Preoperative Diagnosis: GERD Postoperative Diagnosis: GERD Procedure(s) Performed: Laparoscopic Cora fundoplication Anesthesia: RAFI Surgeon: Art Rubio Estimated Blood Loss (ml): 5 Pathology: none sent Condition: stable Disposition: PACU Description of Procedure: HThe patient was placed on the operating table in the supine position. The patient received general anesthesia. And was placed in dorsal lithotomy position. The patient was prepped and draped in the usual sterile fashion. The skin incision sites were anesthetized with 1% local Xylocaine. The skin was incised in the left periumbilical area and then using a blade less 5 mm trocar under direct visualization panel cavity was entered. After adequate insufflation the laparoscope was then placed into the peritoneal cavity. Next a 5 mm trochars placed in the right epigastric position. Another 5 millimeter trocar the right lateral position. Another 5 millimeter trocar in the left lateral position a 5 mm trocar is placed in the left epigastric position. And then the initial 5 mm trocar was exchanged for a 10 mm trocar. The left lateral lobe liver was retracted. The hernia was seen. The crural defect was then dissected using the Harmonic scissors device. A 360 crural dissection was performed the esophagus stomach was reduced back into the peritoneal Cavity. The crural defect was then closed using 2-0 Ethibond suture. Next the fundus of the stomach was mobilized using the Kremlin scissors device. and then a 58- Upper Sorbian bougie dilator was placed oropharynx passed into the esophagus and stomach the fundal plication wrap was then performed by grasping the fundus posteriorly and bringing it around the esophagus and stomach fundoplication was then performed using 2-0 Ethibond suture. Care was taken that the fundal location rested over top of the intra-abdominal esophagus. There was no injury seen to the stomach or esophagus. The dilator was then withdrawn. The abdomen was irrigated there is no bleeding seen. The trochars were then withdrawn and then skin incision sites were closed using 3-0 Monocryl suture Steri-Strips are applied. Patient thought procedure well and sent to recovery room in stable condition.
[2022-05-21] MEDS: HYDROmorphone 0.5 MG/0.5 ML SYRINGE IVP PRN ×3 (14:52→16:02)
[2022-05-21] MEDS ORDERED: MIDAZOLAM 2 MG/2 ML VIAL IVP ONE (15:05)
[2022-05-21] MEDS ORDERED: HYDROmorphone 0.5 MG/0.5 ML SYRINGE IVP ONE (15:24)
--- NOTE | 2022-05-21 16:17 | XR ---
EXAMINATION TYPE: XR chest 1V portable DATE OF EXAM: 05/21/2022 COMPARISON: NONE HISTORY: Cora Fundoplication surgery earlier today with chest pain after surgery. TECHNIQUE: Single AP portable frontal upright view of the chest is obtained. FINDINGS: Low lung volumes redemonstrated. New left lower lung airspace opacity. Right lung predomin antly clear. The cardiac silhouette size remains within normal limits. Underlying dextroconvex scolio sis is redemonstrated. Surgical changes in the epigastric region are now seen. IMPRESSION: There is new left basilar acute infiltrate and/or atelectasis greatest medially. Develop ing pneumonia needs to be considered.
[2022-05-21] MEDS: D5-0.45% NACL WITH KCL 20MEQ/L 1,000 ML IV SCH (17:49)
[2022-05-21] MEDS: METOCLOPRAMIDE 5 MG/ML 2 ML VIAL IVP SCH (17:57)
[2022-05-21] MEDS: FAMOTIDINE 20 MG/2 ML VIAL IV SCH (21:11)
[2022-05-21] MEDS: HYDROmorphone 1 MG/ML 1 ML SYRINGE IVP PRN (21:16)
[2022-05-22] MEDS: METOCLOPRAMIDE 5 MG/ML 2 ML VIAL IVP SCH ×3 (00:07→11:02)
--- NOTE | 2022-05-22 00:18 | P.CONS ---
History of Present Illness - Reason for Consult Consult date: 05/21/22 post op care - Chief Complaint GERD - History of Present Illness 66 year old female with hypertension , GERD patient is here for scheduled elective Laparoscopic Cora fundoplication who tolerated pretty well, with no observed immediate post op complications, denies any SOB , but reports bilateral upper lungs and shoulder pain with deep breath and movement, denies any dizziness, nausea , vomiting, bleeding , headache, changes in vision or focal neuro deficits. denies any abd pain. she reports waking up with discomfort over bilateral upper chest and shoulders. rated 7/10 in severity short lived pain with deep breathing and movement , no SOB, no cough , no diaphoresis , no dizziness. she tolerated diet already. denies any nasuea or vomiting Review of Systems Pertinent positives as noted in HPI. All other systems were reviewed and are negative Past Medical History Past Medical History: CVA/TIA, Musculoskeletal Disorder Additional Past Medical History / Comment(s): fall in feb, back pain, ihs, seasonal allergies cerebral hemrrorhage around age 41 bottom of rt foot is numb, ringing in ears History of Any Multi-Drug Resistant Organisms: None Reported Past Surgical History: Hysterectomy, Tonsillectomy Additional Past Surgical History / Comment(s): epidurals for pain relief, Cora 05/21/2022 Past Anesthesia/Blood Transfusion Reactions: No Reported Reaction Past Psychological History: Depression Smoking Status: Never smoker Past Alcohol Use History: None Reported Past Drug Use History: None Reported - Past Family History Mother Family Medical History: No Reported History Medications and Allergies Home Medications Medication Instructions Recorded Confirmed Type FLUoxetine HCL [PROzac] 40 mg PO DAILY 08/31/21 05/21/22 History HYDROcodone/APAP 5-325MG [[place] 1 tab PO BID 08/31/21 05/21/22 History 5-325] Montelukast [Singulair] 10 mg PO DAILY 08/31/21 05/21/22 History amLODIPine [Norvasc] 5 mg PO DAILY 30 Days #30 tab 09/01/21 05/21/22 Rx [id number] [id number] 1 each PO ONCE PRN 05/05/22 05/21/22 History [Excedrin] Atomoxetine HCl [Strattera] 25 mg PO DAILY PRN 05/05/22 05/21/22 History Lidocaine 5% Patch [Lidoderm] 1 patch TOPICAL DAILY PRN 05/05/22 05/21/22 History buPROPion HCL [Wellbutrin XL] 150 mg PO DAILY 05/05/22 05/21/22 History Allergies Allergy/AdvReac Type Severity Reaction Status Date / Time Dental numbing med AdvReac Rapid Uncoded 05/21/22 11:56 Heart Rate Physical Exam Vitals: Vital Signs Temp Pulse Resp BP Pulse Ox 05/22/22 00:06 97.5 F L 89 20 140/81 95 05/21/22 19:08 97.7 F 108 H 14 122/57 92 L 05/21/22 17:00 108 H 17 134/63 99 05/21/22 16:45 100 16 137/66 98 05/21/22 16:22 99 16 179/92 97 05/21/22 16:07 98 17 175/89 95 05/21/22 15:31 94 16 130/71 97 05/21/22 15:16 100 16 134/73 95 05/21/22 15:01 99 16 143/72 95 05/21/22 14:46 96.8 F L 95 16 145/73 97 05/21/22 12:11 98.1 F 100 18 153/85 96 Intake and Output 05/21/22 05/21/22 05/22/22 14:59 22:59 06:59 Intake Total 1050 600 Output Total 5 Balance 1045 600 Intake: IV 1050 600 Output: Estimated Blood Loss 5 Other: Weight 73.3 kg 73.3 kg Constitutional: No acute distress, conversant, pleasant Eyes: Anicteric sclerae, moist conjunctiva, Pupils equal round reactive to light ENMT: NC/AT Oropharynx clear, no erythema, or exudates Neck: Supple, no masses, or JVD No carotid bruits No thyromegaly Lungs: Clear to auscultation Clear to percussion Normal respiratory effort, no accessory muscle use Cardiovascular: Heart regular in rate and rhythm, No murmurs, gallops, or rubs No peripheral edema Abdominal: Soft Nontender, no guarding, rebound or rigidity Abdomen moving with respiration Normoactive bowel sounds No hepatomegaly, No splenomegaly No palpable mass No abdominal wall hernia noted Skin: Normal temperature, tone, texture, turgor No induration No subcutaneous nodules No rash, lesions No ulcers Extremities: No digital cyanosis No clubbing Pedal pulses intact and symmetrical Radial pulses intact and symmetrical No calf tenderness Psychiatric: Alert and oriented to person, place and time Appropriate affect fair judgement Neuro Muscles Strength 5/5 in all 4 extremities Sensation to light touch grossly present throughout Cranial nerves II-XII grossly intact Lymphatics: no palpable cervical or supraclavicular lymph nodes Assessment and Plan Assessment: GERD , hiatal hernia , s/p Laparoscopic Cora fundoplication POD zero management per primary surgical team hypertension , controlled resume amlodipine 5 m po daily monitor vital signs pleuritic chest pain continue to monitor consider CXR in AM if pain persistent encourage to use incentive spirometer home meds reviewed and resumed follow up morning lab post op , CBC and CMP full code DVT PPX , lovenox 40 mg sc daily thank you for this consultation
[2022-05-22] MEDS: HYDROmorphone 1 MG/ML 1 ML SYRINGE IVP PRN ×3 (01:07→09:55)
[2022-05-22] MEDS: D5-0.45% NACL WITH KCL 20MEQ/L 1,000 ML IV SCH ×2 (02:24→10:06)
[2022-05-22 04:12] VITALS: PULSE 102
[2022-05-22] MEDS: LACTATED RINGERS 1,000 ML IV SCH (05:53)
[2022-05-22 08:28] VITALS: BP 123/73; RESP 18; TEMP 98.2
[2022-05-22] MEDS ORDERED: amLODIPine 5 MG TAB PO SCH (09:00)
[2022-05-22] MEDS ORDERED: buPROPion XL 150 MG TAB.ER.24H PO SCH (09:00)
[2022-05-22] MEDS ORDERED: ENOXAPARIN 40 MG/0.4 ML SYRINGE SQ SCH (09:00)
[2022-05-22] MEDS ORDERED: MONTELUKAST 10 MG TAB PO SCH (09:00)
[2022-05-22] MEDS ORDERED: FLUoxetine HCL 20 MG CAP PO SCH (09:00)
[2022-05-22 09:02] LABS: Basophils # (A) 0.02 X 10*3/uL (0.00-0.10); Basophils % (A) 0.2 %; Eosinophils # (A) 0 X 10*3/uL (0.04-0.35); Eosinophils % (A) 0 %; HCT 36.7 % (37.2-46.3); HGB 11.4 g/dL (12.0-15.0); Immature Grans, Automated 0.4 %; Lymphocytes # (A) 0.92 X 10*3/uL (0.90-5.00); Lymphocytes % (A) 9.1 %; MCH 28.7 pg (27.0-32.0); MCHC 31.1 g/dL (32.0-37.0); MCV 92.4 fL (80.0-97.0); Mean Platelet Volume 9.7 fL (9.5-12.2); Monocytes # (A) 0.83 X 10*3/uL (0.20-1.00); Monocytes % (A) 8.2 %; NRBC Per 100 WBC 0 /100 WBCS (0.0-0.0); Neutrophils # (A) 8.29 X 10*3/uL (1.80-7.70); Neutrophils % (A) 82.1 %; Platelet Count 383 X 10*3/uL (140-440); RBC 3.97 X 10*6/uL (4.10-5.20); RDW 14.7 % (11.5-14.5)
--- NOTE | 2022-05-22 09:28 | P.DS ---
Providers Date of admission: 05/21/2022 Expected date of discharge: 05/22/22 Attending physician: Art Rubio Consults: 05/21/22 14:31 Consult Physician Routine Consulting Provider: Hilary Ruiz Consult Reason/Comments: Medical management Do you want consulting provider notified?: Yes Primary care physician: [facility] Course: This is a 66-year-old female who underwent laparoscopic dislocation. Patient did well. Postoperative day 1 she was discharged home. Procedures: Laparoscopic Cora fundoplication Patient Condition at Discharge: Good Plan - Discharge Summary Discharge Rx Participant: No New Discharge Prescriptions: New Docusate [Colace] 100 mg PO BID #20 capsule Acetaminophen Tab [Tylenol] 650 mg PO Q6H #30 tab Ibuprofen [Motrin] 600 mg PO Q6HR PRN #40 tab PRN Reason: Pain oxyCODONE HCL [OxyIR] 5 mg PO Q6H PRN 3 Days #10 tab PRN Reason: Pain No Action buPROPion HCL [Wellbutrin XL] 150 mg PO DAILY Montelukast [Singulair] 10 mg PO DAILY FLUoxetine HCL [PROzac] 40 mg PO DAILY HYDROcodone/APAP 5-325MG [[place] 5-325] 1 tab PO BID amLODIPine [Norvasc] 5 mg PO DAILY 30 Days #30 tab Lidocaine 5% Patch [Lidoderm] 1 patch TOPICAL DAILY PRN PRN Reason: Pain Atomoxetine HCl [Strattera] 25 mg PO DAILY PRN PRN Reason: focus [id number] [id number] [Excedrin] 1 each PO ONCE PRN PRN Reason: Pain Discharge Medication List FLUoxetine HCL [PROzac] 40 mg PO DAILY 08/31/21 [History] HYDROcodone/APAP 5-325MG [[place] 5-325] 1 tab PO BID 08/31/21 [History] Montelukast [Singulair] 10 mg PO DAILY 08/31/21 [History] amLODIPine [Norvasc] 5 mg PO DAILY 30 Days #30 tab 09/01/21 [Rx] [id number] [Excedrin] 1 each PO ONCE PRN 05/05/22 [History] Atomoxetine HCl [Strattera] 25 mg PO DAILY PRN 05/05/22 [History] Lidocaine 5% Patch [Lidoderm] 1 patch TOPICAL DAILY PRN 05/05/22 [History] buPROPion HCL [Wellbutrin XL] 150 mg PO DAILY 05/05/22 [History] Acetaminophen Tab [Tylenol] 650 mg PO Q6H #30 tab 05/22/22 [Rx] Docusate [Colace] 100 mg PO BID #20 capsule 05/22/22 [Rx] Ibuprofen [Motrin] 600 mg PO Q6HR PRN #40 tab 05/22/22 [Rx] oxyCODONE HCL [OxyIR] 5 mg PO Q6H PRN 3 Days #10 tab 05/22/22 [Rx]
[2022-05-22 09:50] LABS: African American GFR (CKD) 113.9 (60.0-200.0); Albumin 3.7 g/dL (3.8-4.9); Albumin/Globulin Ratio 1.2 (1.60-3.17); Anion Gap 10.2 mmol/L (10.00-18.00); BUN/Creat Ratio 15.25 Ratio (12.00-20.00); Blood Urea Nitrogen 8.6 mg/dL (9.0-27.0); Calcium 9.1 mg/dL (8.7-10.3); Carbon Dioxide 22.9 mmol/L (20.0-27.5); Globulin 3.1 g/dL (1.6-3.3); Non-African American GFR(CKD) 98.3 (60.0-200.0); Potassium 4.9 mmol/L (3.5-5.5); Total Bilirubin 0.3 mg/dL (0.30-1.20); Total Protein 6.8 g/dL (6.2-8.2)
[2022-05-22] MEDS: FAMOTIDINE 20 MG/2 ML VIAL IV SCH (09:59)
--- NOTE | 2022-05-22 10:53 | P.PN ---
Subjective Progress Note Date: 05/22/22 Patient is a 66 yo Female with HTN, GERD, and Prior cerebral hemorrhage who presented for nissian fundoplication. SHe did well without any immedate post-op complications. Patient seen and examined at bedside. She is having some pain which is controlled at this time. She is having some belching. She has not passed gas or had a bowel movement. Vital signs reviewed General: nontoxic, no distress, appears at stated age Cardiovascular: S1S2 reg, no murmur, positive posterior tibial pulse bilateral, Lungs: CTA bilateral, no rhonchi, no rales , no accessory muscle use Neuro: CN II-XI grossly intact, no focal neuro deficits Psych: Alert, oriented, appropriate affect Assessment: 66 yo F s/p Akil fundoplication for GERD Aute blood loss anemia, anticipated outcome of surgery HTN Data Review: Vital signs reviewed temperature 97.8, pulse 102, respirations 20, blood pressure 121/72, O2 sat 98% on room air Laboratory analysis reviewed. White blood cell count 10.10, hemoglobin 11.4, AST 45, ALT 48 Plan: -Medically optimized for discharge at the discretion of Gen. surgery -Patient will resume her home Wellbutrin 150 mg, Prozac 40 mg, Norvasc 5 mg, Singulair 10 mg daily on discharge -She should follow-up with Dr. Bagley in one week -Home medication reconciliation has been addressed-no need for repeat CBC or iron supplementation at this time. Thank you for allowing us to participate in the care of this pleasant patient. Do not hesitate to contact us with questions. Someone can be reached from the [facility] hospitalist group all hours of the day at [phone] or via [employer]. This dictation was prepared using [employer] voice recognition software. Though every attempt is made to correct errors during during dictation some may still exist. Objective - Vital Signs Vital signs: Vital Signs Temp 98.2 F 05/22/22 08:00 Pulse 102 H 05/22/22 08:00 Resp 18 05/22/22 08:00 BP 123/73 05/22/22 08:00 Pulse Ox 92 L 05/22/22 08:00 FiO2 Intake & Output 05/21/22 05/22/22 05/22/22 18:59 06:59 18:59 Intake Total 1650 Output Total 5 Balance 1645 Weight 73.3 kg Intake: IV 1650 Output: Estimated Blood Loss 5 Other: # Voids 2 - Labs CBC & Chem 7: 05/22/22 05:21 05/22/22 05:21 Labs: Abnormal Lab Results - Last 24 Hours (Table) 05/22/22 05/22/22 Range/Units 05:21 05:21 WBC 10.10 H (4.50-10.00) X 10*3/uL RBC 3.97 L (4.10-5.20) X 10*6/uL Hgb 11.4 L (12.0-15.0) g/dL Hct 36.7 L (37.2-46.3) % MCHC 31.1 L (32.0-37.0) g/dL RDW 14.7 H (11.5-14.5) % Neutrophils # 8.29 H (1.80-7.70) X 10*3/uL Eosinophils # 0 L (0.04-0.35) X 10*3/uL BUN 8.6 L (9.0-27.0) mg/dL Glucose 160 H (70-110) mg/dL AST 45 H (13-35) U/L ALT 48 H (8-44) U/L Albumin 3.7 L (3.8-4.9) g/dL Albumin/Globulin Ratio 1.20 L (1.60-3.17) g/dL
== END 2022-05-22 12:47 | disposition home or self-care (01) ==
LOC: OR 11:35 → 4SSUR 15:52 → OR 05-22 12:47
PROVIDERS: ATTEND Surgery
DX: K21.9 Gastro-esophageal reflux disease without esophagitis (principal); K44.9 Diaphragmatic hernia without obstruction or gangrene; F32.A Depression, unspecified; F41.9 Anxiety disorder, unspecified; Z79.1 Long term (current) use of non-steroidal anti-inflammatories (NSAID); Z79.899 Other long term (current) drug therapy
CPT/HCPCS: 80053; 85025; 71045; 43280; J2250; J1100; J2765 ×2; J0690 ×2; J2405; J1650; J1170 ×3; J1644

== ENCOUNTER 2022-05-26 07:54 | Observation (INO) | payer MEDICARE ==
[2022-05-26] MEDS ORDERED: SODIUM CHLORIDE 0.9% 500 ML 500 ML IV STA (08:25)
[2022-05-26 09:11] LABS: Basophils % (A) 0 %; Eosinophils # (A) 0.3 k/uL (0-0.7); Eosinophils % (A) 3 %; HCT 42.2 % (34.0-46.0); HGB 13.8 gm/dL (11.4-16.0); Lymphocytes # (A) 1.9 k/uL (1.0-4.8); Lymphocytes % (A) 20 %; MCH 29.2 pg (25.0-35.0); MCHC 32.8 g/dL (31.0-37.0); MCV 89.1 fL (80.0-100.0); Mean Platelet Volume 8.1; Monocytes # (A) 0.6 k/uL (0-1.0); Monocytes % (A) 7 %; Neutrophils # (A) 6.6 k/uL (1.3-7.7); Neutrophils % (A) 68 %; Platelet Count 507 k/uL (150-450); RBC 4.74 m/uL (3.80-5.40); RDW 14.9 % (11.5-15.5); WBC 9.7 k/uL (3.8-10.6)
[2022-05-26 09:20] LABS: INR 0.9 (<1.2); Partial Thromboplastin Time 22.7 sec (22.0-30.0); Prothrombin Time 9.9 sec (9.0-12.0)
[2022-05-26] MEDS ORDERED: HYDROmorphone 1 MG/ML 1 ML SYRINGE IVP STA ×2 (09:28→11:11)
[2022-05-26] MEDS ORDERED: PANTOPRAZOLE 40 MG/10 ML VIAL IVP STA (09:28)
[2022-05-26] MEDS ORDERED: ONDANSETRON 4 MG/2 ML VIAL IVP STA (09:28)
[2022-05-26 09:41] LABS: ALT 31 U/L (4-34); AST 37 U/L (14-36); African American GFR (CKD) >90 (>60 ml/min/1.73 sqM); Albumin 4.1 g/dL (3.5-5.0); Alkaline Phosphatase 102 U/L (38-126); Anion Gap 12 mmol/L; Blood Urea Nitrogen 11 mg/dL (7-17); Calcium 9.1 mg/dL (8.4-10.2); Carbon Dioxide 20 mmol/L (22-30); Chloride 105 mmol/L (98-107); Glucose 127 mg/dL (74-99); Lipase 62 U/L (23-300); Non-African American GFR(CKD) >90 (>60 ml/min/1.73 sqM); Potassium 4.8 mmol/L (3.5-5.1); Sodium 137 mmol/L (137-145); Total Bilirubin 1.1 mg/dL (0.2-1.3)
--- NOTE | 2022-05-26 10:43 | CT ---
EXAMINATION TYPE: CT abdomen pelvis w con DATE OF EXAM: 05/26/2022 COMPARISON: 12/24/2021 INDICATION: Abdominal pain at incision site post hiatal hernia repair x5 days ago. DLP: 898.4 mGycm, Automated exposure control for dose reduction was used. CONTRAST: 100ml mL of Isovue 370. Study performed without Oral Contrast TECHNIQUE: Axial images were obtained from above the diaphragm to the pubic rami in the axial plane a t 5 mm thick sections. Reconstructed images are reviewed on the computer in the coronal plane. FINDINGS: Limited CT sections are obtained the lung bases. The lung bases are clear. CT ABDOMEN: Subcutaneous increased densities in the left upper quadrant. Example image series 201 christine ge 21. No obvious abdominal wall hernia is identified. Liver: There is diffuse moderate fatty infiltration to the liver. Spleen: Normal Pancreas: Normal Adrenal glands: The adrenal glands are normal. Gallbladder: Normal Kidneys: No masses are evident. No hydronephrosis is present. No cysts are present. Delayed images were obtained through the kidneys, which remain unremarkable. Aorta: Normal Inferior vena cava: Normal. CT PELVIS: Loops of bowel within the abdomen and pelvis are normal. There are loops of bowel which are incom pletely distended or lack oral contrast limiting their evaluation. Appendix: Normal as visualized. Urinary bladder: Decompressed with limited evaluation Genitourinary structures: Uterus and ovaries are not identified. A 1.4 cm cystlike area may be within the right adnexal region. This is essentially stable in size. Osseous structures: No suspicious lytic or sclerotic lesions. Facet degenerative changes lower lumbar spine. IMPRESSIONS: 1. Some increased density within the subcutaneous tissue left upper quadrant could be postsurgical i n nature. 2. Small right adnexal cyst again evident. 3. Moderate fatty infiltration of the liver. 4. Abdominal CT otherwise appears stable from comparison.
--- NOTE | 2022-05-26 11:12 | ED ---
Abdominal Pain HPI - General Chief Complaint: Abdominal Pain Stated Complaint: Post Op Abd Pain Time Seen by Provider: 05/26/22 08:13 Source: patient, family Mode of arrival: wheelchair - History of Present Illness Initial Comments: 66-year-old female with past medical history of diaphragmatic hernia presents to the emergency department reporting epigastric pain. Patient had a Cora fundoplication on May 21. States that she went home on Motrin and Percocet. She has been taking the medications as directed without any pain however this morning began having intense pain. It is located in the left upper quadrant. Admits to nausea without vomiting. No chest pain or shortness of breath. Denies fevers but admits to chills and sweating. She feels like her abdomen is more bloated. No other alleviating, precipitating or modifying factors - Related Data Home Medications Medication Instructions Recorded Confirmed FLUoxetine HCL [PROzac] 40 mg PO DAILY 08/31/21 05/26/22 Montelukast [Singulair] 10 mg PO DAILY 08/31/21 05/26/22 Atomoxetine HCl [Strattera] 25 mg PO DAILY PRN 05/05/22 05/26/22 Lidocaine 5% Patch [Lidoderm 5% 1 patch TRANSDERM DAILY PRN 05/05/22 05/26/22 Patch] Acetaminophen Tab [Tylenol] 650 mg PO Q6H PRN 05/26/22 05/26/22 Pantoprazole [Protonix] 40 mg PO DAILY 05/26/22 05/26/22 Rizatriptan Benzoate [Maxalt] 10 mg PO BID PRN 05/26/22 05/26/22 Sucralfate [Carafate] 1 gm PO ACHS PRN 05/26/22 05/26/22 buPROPion SR [Wellbutrin SR] 150 mg PO DAILY 05/26/22 05/26/22 Previous Rx's Medication Instructions Recorded amLODIPine [Norvasc] 5 mg PO DAILY 30 Days #30 tab 09/01/21 Docusate [Colace] 100 mg PO BID #20 capsule 05/22/22 Ibuprofen [Motrin] 600 mg PO Q6HR PRN #40 tab 05/22/22 oxyCODONE HCL [OxyIR] 5 mg PO Q6H PRN 3 Days #10 tab 05/22/22 Allergies Allergy/AdvReac Type Severity Reaction Status Date / Time Dental numbing med AdvReac Rapid Uncoded 05/26/22 08:56 Heart Rate Review of Systems ROS Statement: Those systems with pertinent positive or pertinent negative responses have been documented in the HPI. ROS Other: All systems not noted in ROS Statement are negative. Past Medical History Past Medical History: CVA/TIA, Musculoskeletal Disorder Additional Past Medical History / Comment(s): fall in feb, back pain, ihs, seasonal allergies cerebral hemrrorhage around age 41 bottom of rt foot is numb, ringing in ears History of Any Multi-Drug Resistant Organisms: None Reported Past Surgical History: Hernia Repair, Hysterectomy, Tonsillectomy Additional Past Surgical History / Comment(s): epidurals for pain relief, Cora 05/21/2022 Past Anesthesia/Blood Transfusion Reactions: No Reported Reaction Past Psychological History: Depression Smoking Status: Never smoker Past Alcohol Use History: None Reported Past Drug Use History: None Reported - Past Family History Mother Family Medical History: No Reported History Course Vital Signs 05/26/22 05/26/22 08:03 11:47 Temperature 97.3 F L 97.3 F L Pulse Rate 114 H 97 Respiratory 18 20 Rate Blood Pressure 136/87 140/72 O2 Sat by Pulse 97 Oximetry - Reevaluation(s) Reevaluation #1: Dr. Rubio to see 05/26/22 11:47 Reevaluation #2: 05/26/22 13:35 Dr. Rubio evaluated the patient -she will be admitted for pain control Medical Decision Making - Medical Decision Making Was pt. sent in by a medical professional or institution (, PA, ENGLISH LANGUAGE LEARNER TUTOR, urgent care, hospital, or prison...) When possible be specific @ -[No] Did you speak to anyone other than the patient for history (EMS, parent, family, police, friend...)? What history was obtained from this source @ -[No] Did you review nursing and triage notes (agree or disagree)? Why? @ -[I reviewed and agree with nursing and triage notes] Were old charts reviewed (outside hosp., previous admission, EMS record, old EKG, old radiological studies, urgent care reports/EKG's, prison records)? Report findings @ -[No old charts were reviewed] Differential Diagnosis (chest pain, altered mental status, abdominal pain women, abdominal pain men, vaginal bleeding, weakness, fever, dyspnea, syncope, headache, dizziness, GI bleed, back pain, seizure, CVA, palpatations, mental health, musculoskeletal)? @ -[not applicable] EKG interpreted by me (3pts min.). @ -[As above] X-rays interpreted by me (1pt min.). @ -[None done] CT interpreted by me (1pt min.). @ -[None done] U/S interpreted by me (1pt. min.). @ -[None done] What testing was considered but not performed or refused? (CT, X-rays, U/S, labs)? Why? @ -[None] What meds were considered but not given or refused? Why? @ -[None] Did you discuss the management of the patient with other professionals (professionals i.e. , PA, ENGLISH LANGUAGE LEARNER TUTOR, lab, RT, psych nurse, social services analyst, head screen worker, teacher, student officer, spring encaser)? Give summary @ -[No] Was smoking cessation discussed for >3mins.? @ -[No] Was critical care preformed (if so, how long)? @ -[No] Were there social determinants of health that impacted care today? How? (Homelessness, low income, unemployed, alcoholism, drug addiction, transportatio n, low edu. Level, literacy, decrease access to med. care, mcc, rehab)? @ -[No] Was there de-escalation of care discussed even if they declined (Discuss DNR or withdrawal of care, Hospice)? DNR status @ -[No] What co-morbidities impacted this encounter? (DM, HTN, Smoking, COPD, CAD, Cancer, CVA, ARF, Chemo, Hep., AIDS, mental health diagnosis, sleep apnea, morbid obesity)? @ -[None] Was patient admitted / discharged? Hospital course, mention meds given and route, prescriptions, significant lab abnormalities, going to OR and other pertinent info. @ -Upon arrival patient was placed into room 10. Thorough history and physical exam was performed. IV was established. Patient was given Protonix and Dilaudid for pain control. Laboratory studies are conducted and reviewed. I did CT the patient's abdomen and pelvis which demonstrates some postsurgical changes however there are no signs of acute process. Results are discussed with the patient. She has some improvement in her symptoms however does have return of her pain. I called and spoke with Dr. Rubio who came to the emergency department with the patient. We'll observe her overnight. Patient was agreeable to this. She is awaiting a bed on the floor in stable condition Undiagnosed new problem with uncertain prognosis? @ -[No] Drug Therapy requiring intensive monitoring for toxicity (Heparin, Nitro, Insulin, Cardizem)? @ -[No] Were any procedures done? @ -[No] Diagnosis/symptom? @ -[default] Acute, or Chronic, or Acute on Chronic? @ -[default] Uncomplicated (without systemic symptoms) or Complicated (systemic symptoms)? @ -[default] Side effects of treatment? @ -[No] Exacerbation, Progression, or Severe Exacerbation? @ -[No] Poses a threat to life or bodily function? How? (Chest pain, [place], [place], pneumonia, PE, COPD, DKA, ARF, appy, cholecystitis, CVA, Diverticulitis, Homicidal, Suicidal, threat to staff... and all critical care pts) @ -[No] - Lab Data Result diagrams: 05/26/22 08:49 05/26/22 08:49 Lab Results 05/26/22 05/26/22 05/26/22 Range/Units 08:49 08:49 08:49 WBC 9.7 (3.8-10.6) k/uL RBC 4.74 (3.80-5.40) m/uL Hgb 13.8 (11.4-16.0) gm/dL Hct 42.2 (34.0-46.0) % MCV 89.1 (80.0-100.0) fL MCH 29.2 (25.0-35.0) pg MCHC 32.8 (31.0-37.0) g/dL RDW 14.9 (11.5-15.5) % Plt Count 507 H (150-450) k/uL MPV 8.1 Neutrophils % 68 % Lymphocytes % 20 % Monocytes % 7 % Eosinophils % 3 % Basophils % 0 % Neutrophils # 6.6 (1.3-7.7) k/uL Lymphocytes # 1.9 (1.0-4.8) k/uL Monocytes # 0.6 (0-1.0) k/uL Eosinophils # 0.3 (0-0.7) k/uL Basophils # 0.0 (0-0.2) k/uL PT 9.9 (9.0-12.0) sec INR 0.9 (<1.2) APTT 22.7 (22.0-30.0) sec Sodium 137 (137-145) mmol/L Potassium 4.8 (3.5-5.1) mmol/L Chloride 105 (98-107) mmol/L Carbon Dioxide 20 L (22-30) mmol/L Anion Gap 12 mmol/L BUN 11 (7-17) mg/dL Creatinine 0.65 (0.52-1.04) mg/dL Est GFR (CKD-EPI)AfAm >90 (>60 ml/min/1.73 sqM) Est GFR (CKD-EPI)NonAf >90 (>60 ml/min/1.73 sqM) Glucose 127 H (74-99) mg/dL Calcium 9.1 (8.4-10.2) mg/dL Total Bilirubin 1.1 (0.2-1.3) mg/dL AST 37 H (14-36) U/L ALT 31 (4-34) U/L Alkaline Phosphatase 102 (38-126) U/L Total Protein 8.0 (6.3-8.2) g/dL Albumin 4.1 (3.5-5.0) g/dL Lipase 62 (23-300) U/L Urine Color Urine Appearance (Clear) Urine pH (5.0-8.0) Ur Specific [place] (1.001-1.035) Urine Protein (Negative) Urine Glucose (UA) (Negative) Urine Ketones (Negative) Urine Blood (Negative) Urine Nitrite (Negative) Urine Bilirubin (Negative) Urine Urobilinogen (<2.0) mg/dL Ur Leukocyte Esterase (Negative) 05/26/22 Range/Units 08:49 WBC (3.8-10.6) k/uL RBC (3.80-5.40) m/uL Hgb (11.4-16.0) gm/dL Hct (34.0-46.0) % MCV (80.0-100.0) fL MCH (25.0-35.0) pg MCHC (31.0-37.0) g/dL RDW (11.5-15.5) % Plt Count (150-450) k/uL MPV Neutrophils % % Lymphocytes % % Monocytes % % Eosinophils % % Basophils % % Neutrophils # (1.3-7.7) k/uL Lymphocytes # (1.0-4.8) k/uL Monocytes # (0-1.0) k/uL Eosinophils # (0-0.7) k/uL Basophils # (0-0.2) k/uL PT (9.0-12.0) sec INR (<1.2) APTT (22.0-30.0) sec Sodium (137-145) mmol/L Potassium (3.5-5.1) mmol/L Chloride (98-107) mmol/L Carbon Dioxide (22-30) mmol/L Anion Gap mmol/L BUN (7-17) mg/dL Creatinine (0.52-1.04) mg/dL Est GFR (CKD-EPI)AfAm (>60 ml/min/1.73 sqM) Est GFR (CKD-EPI)NonAf (>60 ml/min/1.73 sqM) Glucose (74-99) mg/dL Calcium (8.4-10.2) mg/dL Total Bilirubin (0.2-1.3) mg/dL AST (14-36) U/L ALT (4-34) U/L Alkaline Phosphatase (38-126) U/L Total Protein (6.3-8.2) g/dL Albumin (3.5-5.0) g/dL Lipase (23-300) U/L Urine Color Yellow Urine Appearance Clear (Clear) Urine pH 6.5 (5.0-8.0) Ur Specific [place] >1.050 H (1.001-1.035) Urine Protein Trace H (Negative) Urine Glucose (UA) Negative (Negative) Urine Ketones 1+ H (Negative) Urine Blood Negative (Negative) Urine Nitrite Negative (Negative) Urine Bilirubin Negative (Negative) Urine Urobilinogen <2.0 (<2.0) mg/dL Ur Leukocyte Esterase Negative (Negative) Disposition Clinical Impression: Abdominal pain, Status post Cora fundoplication Disposition: ADMITTED IP TO THIS HOSP Condition: Stable Is patient prescribed a controlled substance at d/c from ED?: No Time of Disposition: 13:37 Decision to Admit Reason: Admit from EC Decision Date: 05/26/22 Decision Time: 13:37
[2022-05-26] MEDS ORDERED: SODIUM CHLORIDE 0.9% 1,000 ML IV ONE (11:45)
[2022-05-26 13:11] LABS: Appearance,Urine Clear (Clear); Bilirubin,Urine Negative (Negative); Blood,Urine Negative (Negative); Color,Urine Yellow; Glucose,Urine (UA) Negative (Negative); Ketones,Urine 1+ (Negative); Leukocyte Esterase,Urine Negative (Negative); Nitrite,Urine Negative (Negative); PH, Urine 6.5 (5.0-8.0); Protein,Urine Trace (Negative); Specific Gravity,Urine >1.050 (1.001-1.035); Urobilinogen,Urine <2.0 mg/dL (<2.0)
[2022-05-26] MEDS ORDERED: ONDANSETRON 4 MG/2 ML VIAL IVP PRN (13:37)
[2022-05-26] MEDS ORDERED: NALOXONE 0.4 MG/ML 1 ML VIAL IV PRN (13:37)
--- NOTE | 2022-05-26 14:08 | P.GSHP ---
History of Present Illness H&P Date: 05/26/22 Chief Complaint: Abdominal wall pain This a 66-year-old female who presented emergently complaints of abdominal pain. Patient underwent laparoscopic Cora fundoplication last week. Patient states she is doing well postoperatively. However last night she developed severe left-sided abdominal wall pain. Patient describes a crampy a pain. Patient states she has had no trouble drinking. She denies any dysphagia or GERD symptoms. Patient awake CAT scan. There is no significant findings on her CAT scan her white count is normal. The patient does have tenderness on the left abdominal wall near her trocar site. Past Medical History Past Medical History: CVA/TIA, Musculoskeletal Disorder Additional Past Medical History / Comment(s): fall in fe, back pain, ihs, seasonal allergies cerebral hemrrorhage around age 41 bottom of rt foot is numb, ringing in ears History of Any Multi-Drug Resistant Organisms: None Reported Past Surgical History: Hernia Repair, Hysterectomy, Tonsillectomy Additional Past Surgical History / Comment(s): epidurals for pain relief, Cora 05/21/2022 Past Anesthesia/Blood Transfusion Reactions: No Reported Reaction Past Psychological History: Depression Smoking Status: Never smoker Past Alcohol Use History: None Reported Past Drug Use History: None Reported - Past Family History Mother Family Medical History: No Reported History Medications and Allergies Home Medications Medication Instructions Recorded Confirmed Type FLUoxetine HCL [PROzac] 40 mg PO DAILY 08/31/21 05/26/22 History Montelukast [Singulair] 10 mg PO DAILY 08/31/21 05/26/22 History amLODIPine [Norvasc] 5 mg PO DAILY 30 Days #30 tab 09/01/21 05/26/22 Rx Atomoxetine HCl [Strattera] 25 mg PO DAILY PRN 05/05/22 05/26/22 History Lidocaine 5% Patch [Lidoderm 5% 1 patch TRANSDERM DAILY PRN 05/05/22 05/26/22 History Patch] Docusate [Colace] 100 mg PO BID #20 capsule 05/22/22 05/26/22 Rx Ibuprofen [Motrin] 600 mg PO Q6HR PRN #40 tab 05/22/22 05/26/22 Rx oxyCODONE HCL [OxyIR] 5 mg PO Q6H PRN 3 Days #10 tab 05/22/22 05/26/22 Rx Acetaminophen Tab [Tylenol] 650 mg PO Q6H PRN 05/26/22 05/26/22 History Pantoprazole [Protonix] 40 mg PO DAILY 05/26/22 05/26/22 History Rizatriptan Benzoate [Maxalt] 10 mg PO BID PRN 05/26/22 05/26/22 History Sucralfate [Carafate] 1 gm PO ACHS PRN 05/26/22 05/26/22 History buPROPion SR [Wellbutrin SR] 150 mg PO DAILY 05/26/22 05/26/22 History Allergies Allergy/AdvReac Type Severity Reaction Status Date / Time Dental numbing med AdvReac Rapid Uncoded 05/26/22 08:56 Heart Rate Surgical - Exam Vital Signs Temp Pulse Resp BP Pulse Ox 97.3 F L 114 H 18 136/87 97 05/26/22 08:03 05/26/22 08:03 05/26/22 08:03 05/26/22 08:03 05/26/22 08:03 - General well developed, well nourished, moderate distress - Eyes PERRL - ENT normal pinna - Neck no masses - Respiratory normal expansion - Cardiovascular Rhythm: regular - Abdomen Mild left abdominal wall tenderness. There is no rebound or guarding. There is no peritoneal signs. Abdomen: soft Results - Labs 05/26/22 08:49 05/26/22 08:49 Abnormal Lab Results - Last 24 Hours (Table) 05/26/22 05/26/22 05/26/22 Range/Units 08:49 08:49 08:49 Plt Count 507 H (150-450) k/uL Carbon Dioxide 20 L (22-30) mmol/L Glucose 127 H (74-99) mg/dL AST 37 H (14-36) U/L Ur Specific [place] >1.050 H (1.001-1.035) Urine Protein Trace H (Negative) Urine Ketones 1+ H (Negative) Diabetes panel 05/26/22 Range/Units 08:49 Sodium 137 (137-145) mmol/L Potassium 4.8 (3.5-5.1) mmol/L Chloride 105 (98-107) mmol/L Carbon Dioxide 20 L (22-30) mmol/L BUN 11 (7-17) mg/dL Creatinine 0.65 (0.52-1.04) mg/dL Glucose 127 H (74-99) mg/dL Calcium 9.1 (8.4-10.2) mg/dL AST 37 H (14-36) U/L ALT 31 (4-34) U/L Alkaline Phosphatase 102 (38-126) U/L Total Protein 8.0 (6.3-8.2) g/dL Albumin 4.1 (3.5-5.0) g/dL Calcium panel 05/26/22 Range/Units 08:49 Calcium 9.1 (8.4-10.2) mg/dL Albumin 4.1 (3.5-5.0) g/dL Pituitary panel 05/26/22 Range/Units 08:49 Sodium 137 (137-145) mmol/L Potassium 4.8 (3.5-5.1) mmol/L Chloride 105 (98-107) mmol/L Carbon Dioxide 20 L (22-30) mmol/L BUN 11 (7-17) mg/dL Creatinine 0.65 (0.52-1.04) mg/dL Glucose 127 H (74-99) mg/dL Calcium 9.1 (8.4-10.2) mg/dL Adrenal panel 05/26/22 Range/Units 08:49 Sodium 137 (137-145) mmol/L Potassium 4.8 (3.5-5.1) mmol/L Chloride 105 (98-107) mmol/L Carbon Dioxide 20 L (22-30) mmol/L BUN 11 (7-17) mg/dL Creatinine 0.65 (0.52-1.04) mg/dL Glucose 127 H (74-99) mg/dL Calcium 9.1 (8.4-10.2) mg/dL Total Bilirubin 1.1 (0.2-1.3) mg/dL AST 37 H (14-36) U/L ALT 31 (4-34) U/L Alkaline Phosphatase 102 (38-126) U/L Total Protein 8.0 (6.3-8.2) g/dL Albumin 4.1 (3.5-5.0) g/dL - Imaging CT scan - abdomen: report reviewed (Right ovarian cyst. No evidence of free air. No ascites or evidence of bowel perforation) Assessment and Plan Plan: Abdominal pain. This could be postoperative pain. Patient is tolerating diet. She'll be observed. An received IV pain analgesia.
[2022-05-26] MEDS ORDERED: ATOMOXETINE HCL 25 MG PO PRN (15:17)
[2022-05-26] MEDS ORDERED: SUCRALFATE 1 GM TAB PO PRN (15:17)
[2022-05-26] MEDS ORDERED: SUMAtriptan succinate 50 MG TAB PO PRN (15:17)
[2022-05-26] MEDS: HYDROmorphone 1 MG/ML 1 ML SYRINGE IVP PRN ×2 (15:37→20:07)
[2022-05-26] MEDS: DOCUSATE 100 MG CAP PO SCH (19:50)
[2022-05-27] MEDS: ACETAMINOPHEN TAB 325 MG TAB PO PRN (07:11)
[2022-05-27] MEDS: PANTOPRAZOLE 40 MG/10 ML VIAL IV SCH (09:08)
[2022-05-27] MEDS: FLUoxetine HCL 20 MG CAP PO SCH (09:19)
[2022-05-27] MEDS: MONTELUKAST 10 MG TAB PO SCH (09:19)
[2022-05-27] MEDS: amLODIPine 5 MG TAB PO SCH (09:20)
[2022-05-27] MEDS: DOCUSATE 100 MG CAP PO SCH ×2 (09:20→20:56)
[2022-05-27] MEDS: buPROPion SR 150 MG TABLET.ER PO SCH (09:20)
[2022-05-27 09:28] LABS: Basophils # (A) 0.06 X 10*3/uL (0.00-0.10); Eosinophils # (A) 0.33 X 10*3/uL (0.04-0.35); Eosinophils % (A) 5.6 %; HCT 37.1 % (37.2-46.3); HGB 11.6 g/dL (12.0-15.0); Immature Grans, Automated 0.2 %; Lymphocytes # (A) 1.79 X 10*3/uL (0.90-5.00); Lymphocytes % (A) 30.1 %; MCH 28.9 pg (27.0-32.0); MCHC 31.3 g/dL (32.0-37.0); MCV 92.3 fL (80.0-97.0); Mean Platelet Volume 9.5 fL (9.5-12.2); Monocytes # (A) 0.59 X 10*3/uL (0.20-1.00); Monocytes % (A) 9.9 %; NRBC Per 100 WBC 0 /100 WBCS (0.0-0.0); Neutrophils # (A) 3.16 X 10*3/uL (1.80-7.70); Neutrophils % (A) 53.2 %; Platelet Count 399 X 10*3/uL (140-440); RBC 4.02 X 10*6/uL (4.10-5.20); RDW 15.1 % (11.5-14.5); WBC 5.94 X 10*3/uL (4.50-10.00)
[2022-05-27 09:45] LABS: African American GFR (CKD) 111.6 (60.0-200.0); Anion Gap 9.3 mmol/L (10.00-18.00); BUN/Creat Ratio 10.83 Ratio (12.00-20.00); Blood Urea Nitrogen 6.5 mg/dL (9.0-27.0); Calcium 8.8 mg/dL (8.7-10.3); Carbon Dioxide 23.7 mmol/L (20.0-27.5); Non-African American GFR(CKD) 96.3 (60.0-200.0); Potassium 4.1 mmol/L (3.5-5.5)
[2022-05-27] MEDS: LIDOCAINE 5% PATCH TOPICAL SCH (10:04)
[2022-05-27] MEDS: HYDROmorphone 1 MG/ML 1 ML SYRINGE IVP PRN ×2 (10:51→22:17)
--- NOTE | 2022-05-27 13:01 | P.PN ---
Progress Note - Text Progress Note Date: 05/27/22 Patient still some complaints of some left sided abdominal pain. The pain is better than yesterday. She has tolerated some clear liquids. She denies any nausea vomiting or GERD. On exam vital signs are stable. Abdomen is soft. Incision sites are clean dry intact. History of recent hiatal hernia repair. Patient was likely has postoperative incisional pain. Patient was placed on full liquid diet. She'll be observed.
[2022-05-27] MEDS: HYDROcodone/APAP 10-325MG 1 EACH TAB PO PRN ×2 (15:34→20:55)
[2022-05-27] MEDS: SUCRALFATE 1 GM TAB PO SCH ×2 (18:00→20:56)
[2022-05-28] MEDS: SUCRALFATE 1 GM TAB PO SCH ×4 (05:59→20:05)
[2022-05-28] MEDS: ACETAMINOPHEN TAB 325 MG TAB PO PRN ×2 (06:01→23:56)
[2022-05-28] MEDS: HYDROcodone/APAP 10-325MG 1 EACH TAB PO PRN ×2 (07:50→23:50)
[2022-05-28] MEDS: MAG HYDROX/AL HYDROX/SIMETH 30 ML CUP PO PRN ×3 (07:52→16:49)
[2022-05-28] MEDS: LIDOCAINE 5% PATCH TOPICAL SCH (07:52)
[2022-05-28] MEDS: PANTOPRAZOLE 40 MG/10 ML VIAL IV SCH (07:59)
[2022-05-28] MEDS: buPROPion SR 150 MG TABLET.ER PO SCH (09:33)
[2022-05-28] MEDS: MONTELUKAST 10 MG TAB PO SCH (09:33)
[2022-05-28] MEDS: DOCUSATE 100 MG CAP PO SCH ×2 (09:34→20:06)
[2022-05-28] MEDS: FLUoxetine HCL 20 MG CAP PO SCH (09:34)
[2022-05-28] MEDS: amLODIPine 5 MG TAB PO SCH (09:34)
[2022-05-28] MEDS ORDERED: SUCRALFATE 1 GM TAB PO STA (11:50)
--- NOTE | 2022-05-28 12:20 | P.PN ---
Progress Note - Text Progress Note Date: 05/28/22 Patient feels better today. She states that Carafate and Mylanta made her feel significant bleed better. On exam vital signs are stable. Abdomen soft. There is minimal epigastric tenderness. Resolving gastritis. Patient has had limited oral intake. She'll try to increase her oral intake today. We've changed her Carafate to 2 g by mouth 3 times a day when necessary. I anticipate discharged home tomorrow.
[2022-05-28] MEDS: HYDROmorphone 1 MG/ML 1 ML SYRINGE IVP PRN (23:55)
[2022-05-29] MEDS: SUCRALFATE 1 GM TAB PO SCH ×4 (06:00→19:34)
[2022-05-29] MEDS: HYDROcodone/APAP 10-325MG 1 EACH TAB PO PRN ×2 (08:07→17:15)
[2022-05-29] MEDS: amLODIPine 5 MG TAB PO SCH ×2 (08:08→12:48)
[2022-05-29] MEDS: MONTELUKAST 10 MG TAB PO SCH (08:08)
[2022-05-29] MEDS: PANTOPRAZOLE 40 MG/10 ML VIAL IV SCH (08:08)
[2022-05-29] MEDS: LIDOCAINE 5% PATCH TOPICAL SCH (08:08)
[2022-05-29] MEDS: buPROPion SR 150 MG TABLET.ER PO SCH (08:08)
[2022-05-29] MEDS: DOCUSATE 100 MG CAP PO SCH ×2 (08:08→19:34)
[2022-05-29] MEDS: FLUoxetine HCL 20 MG CAP PO SCH (08:15)
[2022-05-29] MEDS: MAG HYDROX/AL HYDROX/SIMETH 30 ML CUP PO PRN ×2 (08:15→15:39)
[2022-05-29 08:48] VITALS: RESP 18
--- NOTE | 2022-05-29 09:16 | P.PN ---
Subjective Progress Note Date: 05/29/22 Principal diagnosis: Dysphagia Patient says she's doing slightly better today. Says she is able tolerate warm liquids just not cold liquids. Only mild discomfort. No nausea. Objective - Vital Signs Vital signs: Vital Signs Temp 97.9 F 05/29/22 07:00 Pulse 89 05/29/22 07:00 Resp 18 05/29/22 07:00 BP 108/72 05/29/22 07:00 Pulse Ox 93 L 05/29/22 07:00 FiO2 Intake & Output 05/28/22 05/29/22 05/29/22 18:59 06:59 18:59 Intake Total 238 Balance 238 Intake: Oral 238 Other: Voiding Method Toilet Toilet # Voids 2 - Exam Abdomen: Soft, nontender, nondistended, incisions clean and dry - Labs CBC & Chem 7: 05/27/22 05:39 05/27/22 05:39 Assessment and Plan (1) Abdominal pain Narrative/Plan: 66-year-old female with abdominal pain post-Cora. Patient has some dysphagia likely related to swelling of the surgical site. Continue liquid diet. Monitor symptoms today. She would like to go home. I would like to see that the patient is doing better with her liquid intake. Current Visit: Yes Status: Acute Code(s): R10.9 - UNSPECIFIED ABDOMINAL PAIN SNOMED Code(s): 78385160
[2022-05-29] MEDS: HYDROmorphone 1 MG/ML 1 ML SYRINGE IVP PRN (23:16)
[2022-05-30] MEDS: SUCRALFATE 1 GM TAB PO SCH (06:18)
[2022-05-30 07:38] VITALS: BP 138/71; PULSE 96; TEMP 98
[2022-05-30] MEDS: buPROPion SR 150 MG TABLET.ER PO SCH (08:44)
[2022-05-30] MEDS: FLUoxetine HCL 20 MG CAP PO SCH (08:44)
[2022-05-30] MEDS: amLODIPine 5 MG TAB PO SCH (08:44)
[2022-05-30] MEDS: PANTOPRAZOLE 40 MG/10 ML VIAL IV SCH (08:44)
[2022-05-30] MEDS: MONTELUKAST 10 MG TAB PO SCH (08:44)
[2022-05-30] MEDS: LIDOCAINE 5% PATCH TOPICAL SCH (08:45)
[2022-05-30] MEDS: DOCUSATE 100 MG CAP PO SCH (08:45)
--- NOTE | 2022-05-30 08:50 | P.DS ---
Providers Date of admission: 05/26/22 13:37 Expected date of discharge: 05/30/22 Attending physician: Art Rubio Primary care physician: Diony Bagley - Discharge Diagnosis(es) (1) Abdominal pain Patient was admitted 4 days ago with nausea, dysphagia, and discomfort after recent Cora fundoplication. Gradually the patient's symptoms have improved. She is tolerating liquids well at this time. Still has some difficulty with cold her liquids. No pain at this time. She would like to go home today. We'll discharge. Follow-up with Dr. Rubio this coming week. Current Visit: Yes Status: Acute Patient Condition at Discharge: Stable Plan - Discharge Summary Discharge Rx Participant: No New Discharge Prescriptions: No Action Docusate [Colace] 100 mg PO BID #20 capsule Sucralfate [Carafate] 1 gm PO ACHS PRN PRN Reason: Gi Upset Rizatriptan Benzoate [Maxalt] 10 mg PO BID PRN PRN Reason: Migraine Headache Acetaminophen Tab [Tylenol] 650 mg PO Q6H PRN PRN Reason: Pain Montelukast [Singulair] 10 mg PO DAILY FLUoxetine HCL [PROzac] 40 mg PO DAILY amLODIPine [Norvasc] 5 mg PO DAILY 30 Days #30 tab Lidocaine 5% Patch [Lidoderm 5% Patch] 1 patch TRANSDERM DAILY PRN PRN Reason: Pain Atomoxetine HCl [Strattera] 25 mg PO DAILY PRN PRN Reason: focus Ibuprofen [Motrin] 600 mg PO Q6HR PRN #40 tab PRN Reason: Pain oxyCODONE HCL [OxyIR] 5 mg PO Q6H PRN 3 Days #10 tab PRN Reason: Pain Pantoprazole [Protonix] 40 mg PO DAILY buPROPion SR [Wellbutrin SR] 150 mg PO DAILY Discharge Medication List FLUoxetine HCL [PROzac] 40 mg PO DAILY 08/31/21 [History] Montelukast [Singulair] 10 mg PO DAILY 08/31/21 [History] amLODIPine [Norvasc] 5 mg PO DAILY 30 Days #30 tab 09/01/21 [Rx] Atomoxetine HCl [Strattera] 25 mg PO DAILY PRN 05/05/22 [History] Lidocaine 5% Patch [Lidoderm 5% Patch] 1 patch TRANSDERM DAILY PRN 05/05/22 [History] Docusate [Colace] 100 mg PO BID #20 capsule 05/22/22 [Rx] Ibuprofen [Motrin] 600 mg PO Q6HR PRN #40 tab 05/22/22 [Rx] oxyCODONE HCL [OxyIR] 5 mg PO Q6H PRN 3 Days #10 tab 05/22/22 [Rx] Acetaminophen Tab [Tylenol] 650 mg PO Q6H PRN 05/26/22 [History] Pantoprazole [Protonix] 40 mg PO DAILY 05/26/22 [History] Rizatriptan Benzoate [Maxalt] 10 mg PO BID PRN 05/26/22 [History] Sucralfate [Carafate] 1 gm PO ACHS PRN 05/26/22 [History] buPROPion SR [Wellbutrin SR] 150 mg PO DAILY 05/26/22 [History] Follow up Appointment(s)/Referral(s): Diony Bagley DO [Primary Care Provider] - 1-2 days
== END 2022-05-30 10:33 | disposition home or self-care (01) ==
LOC: EC 07:54 → 6NMEDSUR 13:37
PROVIDERS: ADMIT Surgery; ATTEND Surgery
DX: R10.9 Unspecified abdominal pain (principal); R11.0 Nausea; R13.10 Dysphagia, unspecified; Z98.890 Other specified postprocedural states; J30.2 Other seasonal allergic rhinitis; H93.13 Tinnitus, bilateral; F32.A Depression, unspecified; Z86.73 Personal history of transient ischemic attack (TIA), and cerebral infarction without residual deficits; Z90.710 Acquired absence of both cervix and uterus; Z79.899 Other long term (current) drug therapy; Z88.8 Allergy status to other drugs, medicaments and biological substances
CPT/HCPCS: 96376 ×6; 96361; 96374; 96375; 99285; 36415; 80053; 80048; 83690; 85025 ×2; 85610; 85730; 81003; 74177; G0378 ×5; S0106 ×4; J2405; J1170 ×4; C9113 ×5; Q9967

== ENCOUNTER → 2023-01-15 | Outpatient (CLI) | payer MEDICARE ==
--- NOTE | 2023-01-15 16:27 | MR ---
EXAMINATION TYPE: MR lumbar spine wo con DATE OF EXAM: 01/15/2023 COMPARISON: 04/22/2015 HISTORY: Low back pain that radiates down both legs for 45 years. History of injury with horse fallin g on me. TECHNIQUE: Multiplanar, multisequence images of the lumbar spine were acquired without IV contrast. Findings: There is a mild superior endplate compression fracture of L1 which is chronic. The lumbar vertebral s egments are normal in alignment. There is no disc space narrowing or spondylosis. There is mild loss of signal intensity indicating mi ld desiccation of the discs from L1 through L5. Secondary to mild thickening of ligamentum flavum and moderate facet arthropathy, there is minimal sp inal stenosis at the L4-5 level The conus medullaris and cauda equina appear normal and the neuroforamina are widely patent. The paraspinal soft tissues unremarkable. There is mild facet arthropathy at the L2-3 and L3-4 levels and moderate facet arthropathy at the L4- 5 and L5-S1 levels. IMPRESSION: 1. Chronic mild superior endplate compression fracture of L1 2. No lumbar disc herniation. 3. Minimal spinal stenosis at the L4-5. No neural foraminal encroachment throughout the lumbar region . 4. Moderate facet arthropathy in the lower lumbar spine and mild facet arthropathy in the mid to uppe r lumbar spine. 5. No significant interval change compared to previous.
== END | disposition home or self-care (01) ==
LOC: RADMRIMAIN 14:26
PROVIDERS: ATTEND Family Medicine
DX: M51.16 Intervertebral disc disorders with radiculopathy, lumbar region (principal); M47.26 Other spondylosis with radiculopathy, lumbar region; M48.061 Spinal stenosis, lumbar region without neurogenic claudication; M48.56XA Collapsed vertebra, not elsewhere classified, lumbar region, initial encounter for fracture
CPT/HCPCS: 72148

== ENCOUNTER → 2023-04-01 | Outpatient (CLI) | payer MEDICARE ==
--- NOTE | 2023-04-01 12:43 | CT ---
EXAMINATION TYPE: CT lumbar spine wo con CT DLP: 827 mGycm, Automated exposure control for dose reduction was used. DATE OF EXAM: 04/01/2023 11:46 AM COMPARISON: 03/23/2023, 01/15/2023, 05/26/2022 CLINICAL INDICATION:Female, 67 years old with history of M545 Low back pain; PHH, Low back pain TECHNIQUE: Multiple axial images were obtained from the midportion of T11 through the sacroiliac quincy nts. Soft tissue and bone windows in coronal and sagittal planes were obtained and reviewed. 3-D ref ormats of the bones were created on a separate workstation and submitted for review. Contrast used: mL of , (None, if empty). Oral contrast used: (None, if empty). FINDINGS: Alignment: There are 5 lumbar type vertebral bodies within normal alignment. Bone: Multilevel degeneration changes throughout the spine with osteophyte formation and facet joint arthropathy. There is Schmorl's node at superior endplate of L2. Transitional S1 vertebrae. Rudimenta ry S1-S2 disc. Pseudoarthrosis of the spinous processes. Discs: T12-L1: No spinal canal or neural foraminal stenosis is identified. L1-L2: No spinal canal or neural foraminal stenosis is identified. L2-L3: No spinal canal or neural foraminal stenosis is identified. L3-L4: Facet joint arthropathy and disc bulging result without significant spinal canal stenosis or n eural foraminal stenosis. L4-L5: Facet joint arthropathy and disc bulging result without significant spinal canal stenosis or n eural foraminal stenosis. L5-S1: Facet joint arthropathy and disc bulging result with mild spinal canal stenosis and mild bilat eral neural foraminal stenosis. Other: None IMPRESSION: 1. No evidence for spinal fracture. 2. Mild to moderate multilevel disc degeneration changes. No significant spinal canal or neural fora qi stenosis. 3. Transitional S1 vertebrae. 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
== END | disposition home or self-care (01) ==
LOC: RADCTMAIN 11:07
PROVIDERS: ATTEND Orthopaedic Surgery
DX: M51.36 Other intervertebral disc degeneration, lumbar region (principal)
CPT/HCPCS: 72131

== ENCOUNTER → 2023-05-20 | Day surgery (SDC) | payer MEDICARE ==
[2023-05-17 14:17] VITALS: BMI 30.2
[~2023-05-20] MED LIST changes: -ACETAMINOPHEN TAB 500 MG TAB PO PRN; -DEXAMETHASONE SOD PHOSPHATE 4 MG/ML 1 ML VIAL IV ONE; -HEPARIN SODIUM,PORCINE/PF 5,000 UNIT/0.5 ML SYRINGE SQ PRN; -LIDOCAINE 1% (10MG/ML) FOR IV START INTRADERMA PRN; +MIDAZOLAM 2 MG/2 ML VIAL ONE; -ONDANSETRON 4 MG/2 ML VIAL IVP ONE; +ROPIVACAINE 5MG/ML 20ML VIAL ONE; +fentaNYL (PF) 50 MCG/ML 2 ML AMP ONE
[2023-05-20] MEDS: LACTATED RINGERS 1,000 ML IV SCH (11:21)
[2023-05-20 11:38] VITALS: RESP 16; TEMP 97.6
--- NOTE | 2023-05-20 13:13 | P.PCN ---
Description of Procedure: Preprocedure diagnosis. 1. Lumbar spondylosis with facet joint arthropathy without myelopathy. 2. Lumbar degenerative disc disease. Postprocedure diagnosis. As above. Procedure done. Bilateral diagnostic block with local anesthetics at L3, L4, L5 medial branch to target the facet joint L4- 5 and L5-S1 with fluoroscopic guidan ce (fluoroscopy images are available in the radiology department) . Anesthesia. As per anesthesia department/ Moderate sedation with intravenous Versed 2 mg and fentanyl and local infiltration with local anesthetics. In OR, continuous pulse ox, EKG, blood pressure and verbal communication was maintained. Blood loss. Minimal. Indication. The patient has low back pain secondary to lumbar facet joint arthropathy. Discussed the procedure and alternative and complications which includes infection, bleeding, nerve damage, paralysis ,aggravation of pain. Patient understands and all questions were answered. Patient iunderstands that if any pain relief occurs it will last for a few hours to a few days maximum. Procedure description. After getting consent patient was taken in the OR in pr one position. Back prepped with chlorhexidine and draped in sterile fashion. After injecting 5 mL of plain 1% lidocaine subcutaneously, a 22-gauge spinal needle was introduced under tunnel vision of the fluoroscope at the junction of the superior articular process with RIGHT ala of the sacrum. With slight oblique fluoroscope, after injecting 5 mL of plain 1% lidocaine subcutaneously, a 22-gauge spinal needle was introduced under tunnel vision of the fluoroscope at the junction of the superior articular process with RIGHT L5 transverse process, junction of the superior articular process with the RIGHT L4 transverse process. Negative CSF, negative blood, negative paresthesia. After needle position confirmation by AP and crosstable lateral view, after negative aspiration, half milliliters of solution were injected at each point. Total 1- 1/2 mL of solution was injected on the right side which consists of 0.5% ropivacaine. In exactly same way, LEFT sided injections were done at the [facility] 3 points. Junction of the superior articular process with left ala of the sacrum, junction of the superior articular process with the left L5 transverse process, junction of the superior articular process with left L4 transverse process using 0.5 mL of solution at each point. Total 1-1/2 mL of solution was injected on the left side which consists of 0.5% ropivacaine . Spinal needles were taken out and bandages were applied. Disposition. Patient tolerated the procedure well. No complication. Discharged home in stable condition
--- NOTE | 2023-05-20 13:15 | FL ---
Fluoroscopy INDICATION: Pain FINDINGS: Fluoroscopy time: 66.6 seconds. Total dose area product (DAP) in uGy*m?, mGy*cm? (or similar): 0.29531 Images obtained: 5. IMPRESSION: 1. Documentation of fluoroscopy.
[2023-05-20 13:29] VITALS: BP 127/84; PULSE 93
== END ==
LOC: ORPAIN 10:56
PROVIDERS: ATTEND Pain Medicine Interventional Pain Medicine
DX: M47.816 Spondylosis without myelopathy or radiculopathy, lumbar region (principal); M51.36 Other intervertebral disc degeneration, lumbar region; I10 Essential (primary) hypertension; E78.5 Hyperlipidemia, unspecified; G43.909 Migraine, unspecified, not intractable, without status migrainosus; F32.A Depression, unspecified; M19.90 Unspecified osteoarthritis, unspecified site; F12.90 Cannabis use, unspecified, uncomplicated; H91.90 Unspecified hearing loss, unspecified ear; Z79.1 Long term (current) use of non-steroidal anti-inflammatories (NSAID); Z86.73 Personal history of transient ischemic attack (TIA), and cerebral infarction without residual deficits; Z79.899 Other long term (current) drug therapy
CPT/HCPCS: 64493; 64494 ×2; J2250; J3010; J2795

== ENCOUNTER → 2023-06-06 | Outpatient (CLI) | payer MEDICARE ==
[2023-06-06 13:24] VITALS: BP 144/87; PULSE 97; RESP 16; TEMP 98
--- NOTE | 2023-06-06 13:57 | P.PAINPG ---
PQRS Measure Charge Sheet Comment: HISTORY OF PRESENT ILLNESS: A 67 yr old female presents today w severe and chronic LBP since Fall 2022 secondary to DDD, spondylosis and facet arthropathy without myelopathy for evaluation s/p BL MBB L3-L5 #1. Pt states she experienced 85 % pain relief x 12 hrs s/p procedure. Pt states pain level is provoked at 8 /10 in intensity, constant, localized in the lower lumbar spine, predominantly axial, cramping in character w occasional shooting pain towards the RLE. Pain is provoked by bending and over activity. Pain is alleviated by alternating ehat & ice, medications (Oxycodone), Lidocaine topical, chiropractic treatments q3wks since Fall 2022 w last visit in Feb 2023, massage therapy monthly w last visit in Feb 2023, physician guided home exercises daily since Mar 24 2023, repositioning and rest. Oswestry axial pain score at 26. Interventional procedures include BL MBB L3-L5 x1 Medications include Oxycodone REVIEW OF ORGAN SYSTEMS: CONSTITUTIONAL: No fevers or chills. No recent weight loss. NEUROLOGICAL: + numbness and tingling along the distal ex tremities. No seizure disorders or headaches. MUSCULOSKELETAL: + pain PSYCHIATRIC: Denies current depression or suicidal thoughts. Physical Examinations : Constitutional : Cooperative , not in acute distress . Neurologic : Cranial nerve II to XII intact. No focal neurological deficits. Psychiatric : alert & oriented x 3. Matching mood & appropriate affect. Judgment & insight intact. Musculoskeletal : Cervical Spine Motor strength in the deltoid and biceps: Normal right side. Normal Left side Motor strength biceps and the wrist extensors: Normal right side . Normal left side Motor strength in the triceps muscle: Normal right side. Normal left side Deep tendon reflexes: Normal at the biceps. Normal at Brachioradialis. Normal at triceps Vertebral body tenderness to deep palpation over Cervical facet loading test: positive bilaterally Spurling test: positive bilaterally Neck distraction test: positive bilaterally William sign: positive bilaterally Lumbar spine Motor strength lower extremities ,thigh and legs 5/5 Right side , 5/5 Left side Deep tendon reflexes : Normal Knee Jerk. Normal Ankle Jerk Vertebral body tenderness over Green Test positive Lumbar facet Loading Test: positive Right / positive Left L4-L5, L5-S1 Range of motion of the lumbar spine Flexion 30 degrees, extension 10 degrees Straight Leg Raise test: Left/ Right positive at degree Avel test: positive right / positive left. Severe tenderness over the Sacroiliac joint on the Right / Left sides Gaenslen test: positive bilaterally Seated flexion test: positive bilaterally. Sacral spine : Severe tenderness over the Sacroiliac joint: right side / left side Range of motion: Flexion of the lumbar spine <60 degrees Range of motion: Extension of the lumbar spine <20 degrees Gaenslen's Test positive Avel test: positive right side / left side Thigh Thrust Test Sacral Thrust Test Imaging: CT noncontrast of the lumbar spine from 04/01/2023 reviewed Assessment/ Plan : Lumbar DDD Recommendation of BL MBB L4-L5, L5-S1 #2. May need a series of injections, up until RFA, for optimal pain relief. Risks, benefits of procedure discussed and patient verbalized understanding. Admits to anti- coagulant use or medical history of diabetes. Protocol for discontinuation/ continuation of medications nimco procedure discussed. Minimal anesthesia provided, if clinically indicated, consisting of Versed and Fentanyl. All questions answered. I have spent greater than 30 minutes on patient care today. Dr Lundy was available by phone for the evaluation of this patient. The time was used to review the medical records including relevant urine studies and Prescription history (MAPs), review of the available imaging, evaluation and examination of the patient, coordination of care with the medical staff and if applicable referring physicians, as well as creation of the medical record PQRS Narrative: Smoking Status Never smoker Home Medications: Ambulatory Orders FLUoxetine HCL [PROzac] 40 mg PO QAM 08/31/21 Lidocaine 5% Patch [Lidoderm 5% Patch] 1 patch TRANSDERM DAILY PRN 05/05/22 Atorvastatin [Lipitor] 20 mg PO QAM 05/17/23 HYDROcodone/APAP 5-325MG [Davin 5-325] 1 tab PO BID PRN 05/17/23 Ibuprofen [Motrin] 600 mg PO TID PRN 05/17/23 amLODIPine [Norvasc] 5 mg PO QAM 05/17/23 Controlled Substance Measures - Controlled Substance Measures Is patient prescribed a controlled substance at discharge?: No
== END ==
LOC: PNWHC3 10:08
PROVIDERS: ATTEND Specialist
DX: M51.37 Other intervertebral disc degeneration, lumbosacral region (principal); Z88.8 Allergy status to other drugs, medicaments and biological substances
CPT/HCPCS: 99211

== ENCOUNTER 2023-06-17 07:06 | Day surgery (SDC) | payer MEDICARE ==
[2023-06-16 13:13] VITALS: BMI 30.2
[2023-06-17] MEDS ORDERED: LACTATED RINGERS 1,000 ML IV SCH (07:17)
[2023-06-17] MEDS: LACTATED RINGERS 1,000 ML IV ONE (07:20)
[2023-06-17 07:23] VITALS: TEMP 97.1
[2023-06-17] MEDS ORDERED: fentaNYL (PF) 50 MCG/ML 2 ML AMP ONE (08:07)
[2023-06-17] MEDS ORDERED: MIDAZOLAM 2 MG/2 ML VIAL ONE (08:07)
[2023-06-17] MEDS ORDERED: ROPIVACAINE 5MG/ML 20ML VIAL ONE (08:10)
--- NOTE | 2023-06-17 08:22 | P.PCN ---
Date of Procedure: 06/17/23 Procedure(s) Performed: PREOPERATIVE DIAGNOSIS : 1- Lumbar spondylosis with Facet Arthropathy with out myelopathy . 2- Lumber degenerative disc disease POSTOPERATIVE DIAGNOSIS: 1- Lumbar spondylosis with Facet Arthropathy without myelopathy . 2- Lumber degenerative disc disease PROCEDURE: Diagnostic bilateral L3 , L4 , and L5 medial branch block under fluoroscopy guidance(fluoroscopy images available in the radiology Department ) ( To target the facet joint between Bilateral L4-5 , and L5-S1 )#2nd ANESTHESIA:, Monitored anesthesia care as per anesthesia department. EBL: Minimal COMPLICATION: None PROCEDURE INDICATION: Chronic low back pain secondary to Facet arthropathy unresponsive to conservative treatment. PROCEDURE DESCRIPTION: the patient was seen and identified in the preop holding area , risks and benefits and possible complications of the procedure and alternative were discussed with the patient, and the patient agreed to proceed with the procedure and signed the consent and vital signs monitored during the procedure and fluoroscopy was used to maximize the benefit and accuracy of the needle placement, and sedation was given to decrease patient anxiety, patient was taken to the procedure room and placed in prone position vital signs monitored in the back prepped with chlorhexidine X3 then under strict sterile technique using a right oblique fluoroscopy ,the junction of the transverse process and the superior articulating process of the right L3 , L4 , and L5 vertebra which corresponding to the fluoroscopy image of the eye of the Brady dog on the block side for the medial branches and subsequently , after local infiltration of skin and subcu tissuies with Ropivacaine 0.5 % , one mL at each level ,then 22-gauge Quincke-type needles , 3 needle was used , each one of them placed at the junction of the base of the transverse process and the superior articular process at the appropriate level, and the needle was advanced until the periosteum contacted, needle placement confirmed with AP oblique and lateral view and after appropriate needle placement confirmed, and after negative aspiration for heme and CSF and there was no paresthesia 1-1/2 mL of Ropivacaine 0.5% , then half mL injected at each level after negative aspiration the needle subsequently removed and the same procedure repeated for the left side at left side at L3 , L4 and L5 levels. At the end of the procedure and the needles removed and a bandage applied after the skin was cleaned the cleaning solution patient taken to recovery room in stable condition and monitors in the recovery room for 20-30 minutes and discharged home in stable condition after discharge criteria met and patient will follow up with the pain clinic in 2-4 weeks
[2023-06-17] MEDS: IV FLUID CONTINUATION 700 ML IV ONE (08:24)
--- NOTE | 2023-06-17 08:45 | FL ---
Fluoroscopy History: FACET BLOCK MARY GRACE FACET BLOCK BILATERAL. 16 SECONDS FLUORO, .23531 DAP -VIKRAM
[2023-06-17 08:53] VITALS: BP 146/90; PULSE 96; RESP 16
== END 2023-06-17 08:55 | disposition home or self-care (01) ==
LOC: ORPAIN 07:06
PROVIDERS: ATTEND Specialist
DX: M51.36 Other intervertebral disc degeneration, lumbar region (principal); M47.816 Spondylosis without myelopathy or radiculopathy, lumbar region; G89.18 Other acute postprocedural pain; I10 Essential (primary) hypertension; E78.5 Hyperlipidemia, unspecified; G43.909 Migraine, unspecified, not intractable, without status migrainosus; Z90.710 Acquired absence of both cervix and uterus; Z86.73 Personal history of transient ischemic attack (TIA), and cerebral infarction without residual deficits; Z79.899 Other long term (current) drug therapy; Z98.890 Other specified postprocedural states
CPT/HCPCS: 64493; 64494 ×2; J2250; J3010; J2795

== ENCOUNTER 2024-01-21 19:28 | Emergency (ER) | payer MEDICARE ==
[2024-01-21 19:42] VITALS: TEMP 98.4
[2024-01-21] MEDS: LIDOCAINE 1% INJ 10MG/ML (20 ML MDV) SQ ONE (20:23)
[2024-01-21] MEDS: DIPH,PERTUS(ACELL)TETVAC-LF 0.5 ML VIAL IM ONE (20:25)
[2024-01-21] MEDS: KETOROLAC 15 MG/ML 1 ML VIAL IM STA (21:06)
--- NOTE | 2024-01-21 22:43 | ED ---
Animal Bite HPI - General Chief Complaint: Animal Bite Stated Complaint: Dog Bite Time Seen by Provider: 01/21/24 19:43 Source: patient, EMS Mode of arrival: EMS Limitations: no limitations - History of Present Illness Initial Comments: 68-year-old female presenting with chief complaint of dog bites. Patient is currently fostering a medium sized breed dog, she also owns several dogs of her own. States that she was worried that this foster dog and her dogs are going to get into a fight so she stepped between them and was bitten to the bilateral upper extremities. There are numerous lacerations. Her tetanus is up-to-date. She has full range of motion and sensation of the extremities. - Related Data Home Medications Medication Instructions Recorded Confirmed FLUoxetine HCL [PROzac] 40 mg PO QAM 08/31/21 06/16/23 Lidocaine 5% Patch [Lidoderm 5% 1 patch TRANSDERM DAILY PRN 05/05/22 06/16/23 Patch] Atorvastatin [Lipitor] 20 mg PO QAM 05/17/23 06/16/23 HYDROcodone/APAP 5-325MG [[place] 1 tab PO BID PRN 05/17/23 06/16/23 5-325] Ibuprofen [Motrin] 600 mg PO TID PRN 05/17/23 06/16/23 amLODIPine [Norvasc] 5 mg PO QAM 05/17/23 06/16/23 Previous Rx's Medication Instructions Recorded Amoxic-Pot Clav 875-125Mg 1 tab PO Q12HR 10 Days #20 tab 01/21/24 [Augmentin 875-125] Allergies Allergy/AdvReac Type Severity Reaction Status Date / Time Dental numbing med AdvReac Rapid Uncoded 06/16/23 12:42 Heart Rate Review of Systems ROS Statement: Those systems with pertinent positive or pertinent negative responses have been documented in the HPI. ROS Other: All systems not noted in ROS Statement are negative. Past Medical History Past Medical History: CVA/TIA, Hearing Disorder / Deafness, Hyperlipidemia, Hypertension, Osteoarthritis (OA) Additional Past Medical History / Comment(s): Chronic back pain, seasonal allergies, hx cerebral hemrrorhage around age 41, bottom of right foot is numb, ringing in ears, migraines. History of Any Multi-Drug Resistant Organisms: MRSA Date of last positivie culture/infection: 08/04/23 MDRO Source:: GROIN Past Surgical History: Hernia Repair, Hysterectomy, Tonsillectomy Additional Past Surgical History / Comment(s): Epidurals for pain relief, Cora 05/21/2022. Past Anesthesia/Blood Transfusion Reactions: No Reported Reaction Past Psychological History: Depression Smoking Status: Never smoker Past Alcohol Use History: Rare Past Drug Use History: None Reported - Past Family History Mother Family Medical History: No Reported History General Exam Limitations: no limitations General appearance: alert, in no apparent distress Head exam: Present: atraumatic, normocephalic, normal inspection Eye exam: Present: normal appearance, EOMI Neck exam: Present: normal inspection. Absent: meningismus Respiratory exam: Present: normal lung sounds bilaterally. Absent: respiratory distress, wheezes, rales, rhonchi, stridor Cardiovascular Exam: Present: regular rate, normal rhythm, normal heart sounds. Absent: systolic murmur, diastolic murmur, rubs, gallop, clicks Extremities exam: Present: full ROM, normal capillary refill, other (Multiple puncture wounds and lacerations to the bilateral forearms and hands) Neurological exam: Present: alert, oriented X3 Psychiatric exam: Present: normal affect, normal mood Expanded Type of lesion: Present: laceration Course Vital Signs 01/21/24 01/21/24 19:35 22:57 Temperature 98.4 F 98.4 F Pulse Rate 103 H 88 Respiratory 20 19 Rate Blood Pressure 125/82 126/80 O2 Sat by Pulse 100 97 Oximetry Medical Decision Making - Medical Decision Making Was pt. sent in by a medical professional or institution (, PA, PROMOTIONAL DEMONSTRATOR, urgent care, hospital, or detention...) When possible be specific @ -No Did you speak to anyone other than the patient for history (EMS, parent, family, police, friend...)? What history was obtained from this source @ -No Did you review nursing and triage notes (agree or disagree)? Why? @ -I reviewed and agree with nursing and triage notes Were old charts reviewed (outside hosp., previous admission, EMS record, old EKG, old radiological studies, urgent care reports/EKG's, detention records)? Report findings @ -No old charts were reviewed Differential Diagnosis (chest pain, altered mental status, abdominal pain women, abdominal pain men, vaginal bleeding, weakness, fever, dyspnea, syncope, headache, dizziness, GI bleed, back pain, seizure, CVA, palpatations, mental health, musculoskeletal)? @ -Differential Musculoskeletal Muscular strain, contusion, ligament sprain, fracture, arthritis, septic arthritis, bursitis, cellulitis, muscle spasm, nerve compression, DVT, arterial occlusion, herpes zoster, electrolyte abnormality, tumor.... This is not meant to be in all inclusive list EKG interpreted by me (3pts min.). @ -As above X-rays interpreted by me (1pt min.). @ -None done CT interpreted by me (1pt min.). @ -None done U/S interpreted by me (1pt. min.). @ -None done What testing was considered but not performed or refused? (CT, X-rays, U/S, labs)? Why? @ -X-ray was considered, patient refused. She states that she knows there is nothing wrong and she does not need an x-ray What meds were considered but not given or refused? Why? @ -None Did you discuss the management of the patient with other professionals (professionals i.e. , PA, PROMOTIONAL DEMONSTRATOR, lab, RT, psych nurse, nursing home social worker, top cager, teacher, railroad police officer, case maker)? Give summary @ -No Was smoking cessation discussed for >3mins.? @ -No Was critical care preformed (if so, how long)? @ -No Were there social determinants of health that impacted care today? How? (Homelessness, low income, unemployed, alcoholism, drug addiction, transportation, low edu. Level, literacy, decrease access to med. care, intermediate, rehab)? @ -No Was there de-escalation of care discussed even if they declined (Discuss DNR or withdrawal of care, Hospice)? DNR status @ -No What co-morbidities impacted this encounter? (DM, HTN, Smoking, COPD, CAD, Cancer, CVA, ARF, Chemo, Hep., AIDS, mental health diagnosis, sleep apnea, morbid obesity)? @ -None Was patient admitted / discharged? Hospital course, mention meds given and route, prescriptions, significant lab abnormalities, going to OR and other pertinent info. @ -68-year-old female presenting with chief complaint of multiple dog bites to the upper extremities. The patient's wounds are cleansed and irrigated. Large wounds are loosely approximated. Patient is started on Augmentin and tetanus is updated. Patient refuses x-ray. Patient is educated on today's findings as well as treatment plan and signs that indicate infection and should prompt immediate reevaluation. Follow-up with PCP. Report back to ER with any new or worsening symptoms. Discussed return parameters and answered all questions. Regino russ conveyed verbal understanding and agreed to the plan. I discussed this case in detail with my attending Dr. Burns Undiagnosed new problem with uncertain prognosis? @ -No Drug Therapy requiring intensive monitoring for toxicity (Heparin, Nitro, Insulin, Cardizem)? @ -No Were any procedures done? @ -No Diagnosis/symptom? @ -Dog bites Acute, or Chronic, or Acute on Chronic? @ -Acute Uncomplicated (without systemic symptoms) or Complicated (systemic symptoms)? @ -Uncomplicated Side effects of treatment? @ -No Exacerbation, Progression, or Severe Exacerbation? @ -No Poses a threat to life or bodily function? How? (Chest pain, [place], [place], pneumonia, PE, COPD, DKA, ARF, appy, cholecystitis, CVA, Diverticulitis, Homicidal, Suicidal, threat to staff... and all critical care pts) @ -Threat for possible infection, patient is placed on prophylaxis with Augmentin Disposition Clinical Impression: Dog bite Disposition: HOME SELF-CARE Condition: Good Instructions (If sedation given, give patient instructions): Animal Bite (ED) Additional Instructions: Follow-up with PCP. Report back to ER with any new or worsening symptoms. Keep the wounds clean dry and covered. Wash daily with soap and water. Monitor closely for any signs of infection, including but not limited to redness, swelling, warmth, tenderness, discharge, fever, red streaking up the arm. Prescriptions: Amoxic-Pot Clav 875-125Mg [Augmentin 875-125] 1 tab PO Q12HR 10 Days #20 tab Is patient prescribed a controlled substance at d/c from ED?: No Referrals: Diony Bagley DO [Primary Care Provider] - 1-2 days Time of Disposition: 22:43
[2024-01-21] MEDS: AMOXIC-POT CLAV 875-125MG 1 EACH TAB PO STA (22:56)
[2024-01-21 23:02] VITALS: BP 126/80; PULSE 88; RESP 19
== END 2024-01-21 23:00 | disposition home or self-care (01) ==
LOC: EC 19:28
DX: S51.852A Open bite of left forearm, initial encounter (principal); Z88.4 Allergy status to anesthetic agent; W54.0XXA Bitten by dog, initial encounter
CPT/HCPCS: 99284; 96372; J2003; J1885

== ENCOUNTER → 2024-06-25 | Outpatient (CLI) | payer MEDICARE ==
--- NOTE | 2024-06-25 11:19 | CT ---
EXAMINATION TYPE: CT chest wo con CT DLP: 372.70 mGycm, Automated exposure control for dose reduction was used. DATE OF EXAM: 06/25/2024 11:07 AM COMPARISON: Chest radiograph 05/21/2022 CLINICAL INDICATION:Female, 68 years old with history of R93.89 ABNORMAL FINDINGS ON DX IMAGING OF OT H BODY; PHH, Abnormal findings on other imaging, sternal pain for several days TECHNIQUE: Multiple axial images were obtained through the chest without IV contrast. Lack of IV or o ral contrast limits evaluation of solid and hollow organ viscera. . Coronal and sagittal reformats re viewed. FINDINGS: LUNGS/ PLEURA: No pleural effusion, pneumothorax, focal consolidation. Linear atelectasis within the left upper lobe . No suspicious pulmonary nodule or mass. AIRWAY: Patent and unremarkable.. HEART: Size within normal limits. . No pericardial effusion. No significant coronary artery calcifica tions. MEDIASTINUM: No gross evidence of adenopathy. VASCULATURE: No aortic aneurysm. MUSCULOSKELETAL: Acute mildly displaced manubrial fracture. Similar Schmorl's node involving the supe rior endplate of the L2 vertebral body. Similar spur also involving the inferior endplate of the T11 vertebral body. S-shaped scoliotic curvature of the thoracolumbar spine. SOFT TISSUES/LYMPH NODES: A few mildly prominent right axillary lymph nodes measuring up to 9 mm. Enl arged left axillary lymph nodes measuring up to 1.4 cm. LOWER NECK: No significant findings. UPPER ABDOMEN: Small hiatal hernia with post surgical changes at the GE junction. IMPRESSION: 1. Acute mildly displaced manubrial fracture. 2. Few mildly enlarged left axillary lymph nodes with additional prominent right axillary lymph nodes . Consider further evaluation with ultrasound could [facility], , 06/25/2024 11:17 AM
== END | disposition home or self-care (01) ==
LOC: RADCTMAIN 10:47
PROVIDERS: ATTEND Family Medicine
DX: S22.21XA Fracture of manubrium, initial encounter for closed fracture (principal); I10 Essential (primary) hypertension; E78.2 Mixed hyperlipidemia; R93.89 Abnormal findings on diagnostic imaging of other specified body structures; R59.0 Localized enlarged lymph nodes
CPT/HCPCS: 71250

== ENCOUNTER → 2024-08-23 | Outpatient (CLI) | payer MEDICARE ==
--- NOTE | 2024-08-24 20:39 | MR ---
INDICATION: Patient age:Female; 68 years old; Reason for study: M43.16 SPONDYLOLISTHESIS, LUMBAR REGION; [facility]. COMPARISONS: CT lumbar spine 04/01/2023, MRI lumbar spine 01/15/2023, 04/22/2015, lumbosacral spine radio graph 11/23/2022. TECHNIQUE: Multi planar, multi sequence imaging was performed utilizing: T1-weighted, T2-weighted, a nd turbo inversion recovery imaging of the lumbar spine. The patient was not given contrast. FINDINGS: Similar anterior wedging of the T10 vertebral body. Remote superior endplate compression d eformity and Schmorl's node of the L1 vertebral body. Approximately 5% height loss. The remaining lum bar vertebral bodies demonstrate preserved height. No spondylolisthesis. Mild levocurvature of the lloyd mbar spine with apex at L2-L3. Transitional S1 vertebrae with a rudimentary S1-S2 disc and pseudoarth rosis of the spinous processes. Diffusely heterogenous bone marrow signal. Multilevel disc desiccatio n is present without significant disc height loss. No abnormal STIR signal. The conus medullaris and the distal spinal cord do appear unremarkable with regards to their signal intensity and morphology. T12-L1: No significant disc pathology is identified. The spinal canal and neural foramen are patent L1-L2: No significant disc pathology is identified. Bilateral facet arthropathy. The spinal canal an d neural foramen are patent. L2-L3: No significant disc pathology is identified. Bilateral facet arthropathy. The spinal canal an d neural foramen are patent. L3-L4: No significant disc pathology is identified. Bilateral facet arthropathy. The spinal canal an d neural foramen are patent. L4-L5: No significant disc pathology is identified. Ligament flavum buckling with bilateral facet ar thropathy. The spinal canal and neural foramen are patent L5-S1: Eccentric left lateral zone disc bulge. Ligamentum flavum buckling. No spinal canal stenosis. Bilateral facet arthropathy. The right neural foramen is patent. Mild to moderate left neural forami nal stenosis. Disc bulge abuts the exiting left S1 nerve root. Other significant findings: None. IMPRESSION: 1. Mild to moderate multilevel disc degeneration with associated osteoarthritic changes as described above. No evidence for disc herniation or significant spinal canal stenosis. Most pronounced at L5-S 1 with eccentric left disc bulge which abuts the exiting left S1 nerve root. Overall no significant c hange from prior MRI. 2. Chronic mild superior endplate compression deformity of the L1 vertebral body with additional chr onic anterior wedging of the T10 vertebral body. [facility], , 08/24/2024 8:36 PM
== END | disposition home or self-care (01) ==
LOC: RADMRIMAIN 16:17
PROVIDERS: ATTEND Orthopaedic Surgery
DX: M43.16 Spondylolisthesis, lumbar region (principal); M51.360 Other intervertebral disc degeneration, lumbar region with discogenic back pain only; M47.816 Spondylosis without myelopathy or radiculopathy, lumbar region; M51.370 Other intervertebral disc degeneration, lumbosacral region with discogenic back pain only; M48.54XA Collapsed vertebra, not elsewhere classified, thoracic region, initial encounter for fracture
CPT/HCPCS: 72148

== ENCOUNTER → 2024-09-04 | Outpatient (CLI) | payer MEDICARE | END | disposition home or self-care (01) | LOC: LABPAT 11:45 | PROVIDERS: ATTEND Orthopaedic Surgery | DX: Z01.812 Encounter for preprocedural laboratory examination (principal); Z22.322 Carrier or suspected carrier of Methicillin resistant Staphylococcus aureus; M43.16 Spondylolisthesis, lumbar region | CPT/HCPCS: 86850; 86900; 86901; 87070 ==

== ENCOUNTER 2024-09-06 13:52 | Day surgery (SDC) | payer MEDICARE, OTHER ==
[2024-09-05 09:44] VITALS: BMI 30.2
--- NOTE | 2024-09-06 10:10 | P.HPOR ---
History of Present Illness H&P Date: 08/22/24 .D:Date: 08/22/24 : 10:59am .T:Title: Spine Surgery Preoperative Assessment and Risk Review Clinical Summary: Ms. Welsh, a 56-year-old female, presents with severe low back pain, bilateral lower extremity radiculopathy with right-sided weakness, and neurogenic claudication. Imaging reveals an unstable L4-L5 grade 1-2 spondylolisthesis with 10mm anterior translation on flexion and significant reduction on extension, yaquelin ng with severe facet arthrosis at L4-L5 and L5-S1. MRI demonstrates moderate to severe central and foraminal stenosis, particularly pronounced in flexed positions. After thorough examination and discussion of treatment options, an URGENT L4-L5 right-sided minimally invasive transforaminal lumbar interbody fusion was recommended due to the progressive neurological deficits and risk of further deterioration. The patient was counseled extensively on surgical risks, benefits, and alternatives, and has agreed to consider proceeding with surgery. Preoperative clearance from her PCP is required. Medical management includes a methylprednisolone dose pack and gabapentin 300mg TID for symptom control. Patient will follow up in 2 weeks to finalize surgical planning and complete presurgical requirements. Educational materials regarding the procedure were provided, and all questions were addressed during this 25-minute consultation. Surgical Plan: URGENT L4-L5 right-sided minimally invasive transforaminal lumbar interbody fusion HISTORY: Ms. Welsh is presenting for evaluation of low back pain lower extremity weakness lower extremity radiculopathy just difficulty with walking distances. It was my pleasure to have seen and examined Ms. Welsh. In our visit today we have had a chance to go over subjective complaints, ph ysical examination findings and treatments including the natural course history without intervention and various interventional options. The patients imaging demonstrates: XRAY Date: 06/27/24 [facility] Region: LUMBAR Views: MV IMAGES ARE REVIEWED WITH THE PATIENT IN OFFICE AND DEMONSTRATE THE FOLLOWING: FINDINGS: AP lateral flexion extension films of lumbar spine obtained in the office a. This demonstrates a L4-L5 spondylolisthesis grade 1 borderline grade 2 with 10 mm of anterior translation and flexion and near reduction on extension. Is a very unstable spondylolisthesis. Spondylosis L5-S1 however this is likely an auto fused segment with severe facet arthrosis that appears nonmobile and fle xion-extension films. Her segmental lordosis as well as overall lordosis is compromised with overall lordosis measuring around 37 with a pelvic incisions around 57. There are no acute fractures dislocations otherwise noted. AP pelvis demonstrates congruent level pelvis the fracture Advanced Imaging: Computed tomography scans and MRIs are reviewed once again and demonstrates over findings with near complete reduction of spondylolisthesis on supine films at L4-L5 with bilateral facet arthrosis that severe at L4 5 and L5-S1. There is pars elongation L4 5 with severe spondylotic changes. Discharged induration is noted. Step-off is more notable on the MRI than on computed tomography scan. There is disc stenosis as well as bony stenosis and subluxation stenosis of the L4-L5 region which is moderate in the supine position and likely severe in the flex position given the amount of translation of this patient's flexion extension films. Foraminal stenosis boggy facets hypertrophy and ligamental hypertrophy. On physical exam, Ms. Welsh demonstrates: * Severe low back pain Lower extremity radiculopathy Right-sided lower extremity weakness Neurogenic claudication I have explained to the patient that as their condition progresses it will cause further neurological deficits and eventual paralysis. Based on the patients imaging, physical exam, and the rapid progression and disabling nature of their symptoms, at this time I recommend surgery in the form of a: L4-L5 right-sided minimally invasive transforaminal lumbar interbody fusion. I discussed the risk and benefits of this procedure at length with Ms. Welsh. The patient agreed to considered pursuing the procedure abovementioned. Prior to surgery, she should follow up with her PCP (Cardio, ID, IM etc) for clearance. Questions were invited and answered, and the patient wishes to proceed as outlined below. IMPRESSION: It was my pleasure to have seen and examined Carly. I reviewed the patient's clinical syndrome, physical findings, and imaging studies during the appointment today. It is my impression that the patient has a diagnosis of. 1.L4-L5 grade 1 and grade 2 spondylolisthesis unstable 2.neurogenic claudication 3.lower extremity weakness 4. lower extremity paresthesias 5. Low back pain Currently, I am recommendin.URGENT L4-L5 right-sided minimally invasive transforaminal lumbar interbody fusion 2.Review of surgical risks and benefits as well as an educational packet on the proposed surgical procedure. 3. Follow pre-sugical checklist and recommendations Medical Necessity Note: Ms. Welsh's condition demonstrates clear medical necessity for surgical intervention based on her clinical presentation and imaging findings. The patient presents with severe low back pain, progressive neurological deficits including right-sided lower extremity weakness, lower extremity radiculopathy, and neurogenic claudication significantly impacting her mobility and quality of life. Imaging studies reveal an unstable L4-L5 grade 1-2 spondylolisthesis with 10mm of anterior translation on flexion, moderate to severe central and foraminal stenosis, and bilateral facet arthrosis. Conservative management has failed to provide adequate relief of symptoms. Without surgical intervention, there is substantial risk of further neurological deterioration, potentially leading to permanent nerve damage, worsening mobility issues, and increased pain. The progression of her symptoms, combined with the clear radiographic evidence of pathology correlating with her clinical presentation, establishes that surgical intervention is medically necessary at this time. Surgical Rationale Note: An L4-L5 right-sided minimally invasive transforaminal lumbar interbody fusion (MIS-TLIF) is the most appropriate surgical intervention for Ms. Welsh given her specific pathology and clinical presentation. This procedure directly addresses the unstable spondylolisthesis by providing stabilization of the L4-L5 segment, decompression of neural elements, and religion of lordosis. The minimally invasive approach offers advantages of reduced tissue trauma, less blood loss, decreased postoperative pain, and potentially faster recovery compared to traditional open techniques. The right-sided approach is specifically selected based on the predominance of symptoms and pathology. The addition of an interbody fusion device will restore disc height, indirectly decompress the neural foramina, and provide anterior column support. Posterior instrumentation will address the instability evident on flexion-extension films. This procedure has demonstrated efficacy in similar clinical scenarios with favorable outcomes regarding pain relief, functional improvement, and halting of neurological deterioration. Given the patient's age, clinical status, and the progressive nature of her condition, this surgical approach offers the optimal balance of effectiveness and safety. Risks: All surgical procedures come with inherent risks, including those related to positioning, anesthesia, intraoperative findings, and postoperative complications. It is important to understand that surgery does not come with any guarantee of a successful outcome as complications and adverse events are always possible. The patient was given a handout in office today discussing the surgical procedure and risks associated with the intervention, both of which were discussed with the patient. These risks include but are not limited to the following: * Experiencing same, different or even worse symptoms in back, neck, arms, or legs compared to before surgery. Requiring further surgery or other forms of treatment presently or at some time in the future at same or other levels of the intended spine surgery. On an extreme but fortunately relatively rare basis severe complication such as blindness, stroke, heart attack, temporary and/or permanent nerve injury, paralysis, coma, or may occur, sometimes without known explanation. Surgical complications may include but are not limited to risk of infection, fluid accumulation in the surgical dissection site, including a sero ma or hematoma, that requires additional surgery, wound drainage, bleeding, new numbness or weakness, vision changes/loss, spinal fluid leakage, non-healing and/or infected incision, headaches, difficulty or inability to swallow, hoarseness, hemopneumothorax, pneumothorax, impotence, retrograde ejaculation, vaginal dryness; injury to nerves, spinal cord, blood vessels, lymphatics or other vital organs (i.e., bowel injury, injury to the great vessels); heterotopic bone formation; complications related to the hardware such as screws, rods, cages including misplaced hardware, device failure, inst rumentation at the wrong spine level, hardware fracture/breakage, or hardware loosening; vertebral failure of the spinal column above or below the newly placed hardware; retained surgical instrumentations or devices and the need for further surgery. * Medical risks of the planned spine surgery include but are not limited to generalized Infections to the whole body or local areas outside of the surgical site (sepsis), heart attack, bleeding, anaphylaxis, meningitis, seizure, epilepsy, hearing loss, burn moss, laceration of the head or other areas of the body, bruising, hypersensitivity of the skin, bladder over distension; allergic reaction; shoulder injury related to positioning; fat, blood and air clots to other areas of the body like heart, lungs, brain; failure of internal organs such as lungs, kidneys, liver and excessive bleeding. If blood transfusions are necessary, note that transfusions may cause intolerance reactions such as anaphylaxis or other complex reactions. Despite best efforts, the results of spine surgery might not heal in terms of bone, soft tissues such as skin, fascia, ligaments, and joints. Additionally, in order to achieve best possible results, spine surgery may be carried out beyond the initially planned levels and involve decompression, fusion including insertion of hardware at levels other than the original intended area of surgical interest change some portions of the procedure in order to ensure the best possible outcomes. With spine surgery and spinal fusion, there are different off label uses of instrumentation (devices, implants and hardware) as well as biological substances (bone morphogenic proteins, demineralized bone matrix) as well as using extra bone from allograft sources (i.e. cadaver bone) or autograft (iliac crest bone, ribs, or the spine itself). The patient has been given information about these practices and their inherent risks and benefits. [facility] is an educational center that serves as a training facility for neurosurgical and orthopedic YOUTH AGENT and Nursing students. Physician assistants are medically trained surgical providers who function in the outpatient, inpatient, and operating room setting under the direct supervision of the attending surgeon. [facility] has multiple operating rooms with single and overlapping rooms running daily. They currently function under the required guidelines as produced by the [facility] Finance Committee with regards to the overlapping rooms and will continue to comply with changes to this policy as they occur. The requirements include and are complied with as follows: (1) the critical portions of the overlapping rooms will not occur at the same time, (2) the attending physician will be physically present during the critical portions of the procedure and immediately available during the entire case, and (3) a back-up attending is designated should the primary attending not be immediately available. The patient has had a chance to review all the listed information, has been given print outs detailing this information, and has had all his/her questions answered to their satisfaction. It was my pleasure to have seen and examined Ms. Welsh. In our visit today we have had a chance to go over my understanding of our patient's current condition, the natural course history without intervention and various interventional options. Questions were invited and answered, and the patient wishes to proceed as outlined above. I have seen and examined the patient for 25 minutes and we have spent more than 50% of the time in repeat and detailed counseling about the patient's condition, its natural course history with out and as much as can be predicted with surgery and re-review of various surgical treatment options. In conclusion, Ms. Welsh and requested we proceed with the above suggested surgery and are willing to accept risks and limitations of the suggested surgery as nature of the disease process and our best attempts at treatment for the condition. Thank you again for allowing us to be part of your patient's care. Please don't hesitate to contact me if you have any further questions. Rx: methylPREDNISolone 4 mg tablets in a dose pack, 1, Ref: 0, take by oral route as directed per package instructions Rx: gabapentin 300 mg capsule, 90, Ref: 0, take 1 capsule (300 mg) by oral route 3 times per day # SIGNED BY Ricci Bolivar ([facility])08/22/2024 12:28PM # REVISED BY Ricci Bolivar ([facility])08/27/2024 10:13AM Past Medical History Past Medical History: CVA/TIA, Hearing Disorder / Deafness, Hyperlipidemia, Hypertension, Osteoarthritis (OA) Additional Past Medical History / Comment(s): Chronic back pain, seasonal allergies, hx cerebral hemorrhage around age 41, bottom of right foot is numb, ringing in ears, migraines. History of Any Multi-Drug Resistant Organisms: MRSA Date of last positivie culture/infection: 08/04/23 MDRO Source:: GROIN Past Surgical History: Hernia Repair, Hysterectomy, Tonsillectomy Additional Past Surgical History / Comment(s): Epidurals for back pain, Cora 05/21/2022. Past Anesthesia/Blood Transfusion Reactions: No Reported Reaction Past Psychological History: Anxiety, Depression Smoking Status: Never smoker Past Alcohol Use History: Rare Past Drug Use History: None Reported Additional Drug Use History / Comment(s): . - Past Family History Mother Family Medical History: No Reported History Medications and Allergies Home Medications Medication Instructions Recorded Confirmed Type FLUoxetine HCL [PROzac] 40 mg PO QAM 08/31/21 09/05/24 History Lidocaine 5% Patch [Lidoderm 5% 1 patch TRANSDERM DAILY PRN 05/05/22 09/05/24 History Patch] Atorvastatin [Lipitor] 20 mg PO QAM 05/17/23 09/05/24 History HYDROcodone/APAP 5-325MG [[place] 1 tab PO BID PRN 05/17/23 09/05/24 History 5-325] Ibuprofen [Motrin] 600 mg PO TID PRN 05/17/23 09/05/24 History amLODIPine [Norvasc] 5 mg PO QAM 05/17/23 09/05/24 History Allergies Allergy/AdvReac Type Severity Reaction Status Date / Time Dental numbing med AdvReac Rapid Uncoded 09/05/24 09:15 Heart Rate Physical Examination Osteopathic Statement: *. No significant issues noted on an osteopathic structural exam other than those noted in the History and Physical/Consult.
[~2024-09-06 13:52] MED LIST changes: -MIDAZOLAM 2 MG/2 ML VIAL ONE; -ROPIVACAINE 5MG/ML 20ML VIAL ONE; +TRANEXAMIC 1,000 MG/100ML-NACL 1,000 MG in SALINE 1 100ML.BAG IVPB PRN; -fentaNYL (PF) 50 MCG/ML 2 ML AMP ONE
[2024-09-06] MEDS: IV FLUID CONTINUATION 1,000 ML IV ONE ×4 (14:11→14:37)
[2024-09-06] MEDS: LACTATED RINGERS 1,000 ML IV SCH ×2 (14:38→18:50)
[2024-09-06] MEDS: DEXAMETHASONE SOD PHOSPHATE 4 MG/ML 1 ML VIAL IV ONE (14:41)
[2024-09-06] MEDS: ONDANSETRON 4 MG/2 ML VIAL IVP ONE (14:41)
[2024-09-06] MEDS ORDERED: SUCCINYLCHOLINE CHLORIDE 200 MG/10 ML VIAL IV ONE (14:53)
[2024-09-06] MEDS ORDERED: KETAMINE HCL IN 0.9 % NACL 50 MG/5 ML SYRINGE ONE (14:53)
[2024-09-06] MEDS ORDERED: fentaNYL (PF) 50 MCG/ML 2 ML AMP ONE (14:53)
[2024-09-06] MEDS ORDERED: GLYCOPYRROLATE 0.2 MG/ML 2 ML VIAL ONE (14:53)
[2024-09-06] MEDS ORDERED: HYDROmorphone (PF) 1 MG/ML ONE (14:53)
[2024-09-06] MEDS ORDERED: LIDOCAINE 2% (PF) 20 MG/ML 5 ML VIAL ONE (14:53)
[2024-09-06] MEDS ORDERED: PROPOFOL 10 MG/ML 20 ML VIAL IV ONE (14:53)
[2024-09-06] MEDS ORDERED: TRANEXAMIC 1,000 MG/100ML-NACL PREMIX BAG ONE (14:53)
[2024-09-06] MEDS ORDERED: PHENYLEPHRINE-0.9% NACL SYG 1,000 MCG/10 ML SYRINGE ONE (14:53)
[2024-09-06] MEDS ORDERED: ROCURONIUM 10 MG/ML (5 ML VIAL) IV ONE (14:53)
[2024-09-06] MEDS ORDERED: NEOSTIGMINE 1 MG/ML 10 ML VIAL ONE (14:53)
[2024-09-06] MEDS ORDERED: MIDAZOLAM 2 MG/2 ML VIAL ONE (14:53)
[2024-09-06] MEDS: SODIUM CHLORIDE 0.9% 100 ML with ceFAZolin 2,000 MG IV ONE (14:58)
[2024-09-06] MEDS ORDERED: TRANEXAMIC ACID 1,000 MG/10 ML VIAL MISCELLANE ONE (15:07)
[2024-09-06] MEDS: THROMBIN (BOVINE) 5,000 UNIT VIAL TOPICAL ONE (15:44)
[2024-09-06] MEDS: LIDOCAINE 2%-EPI 1:100,000 20 ML VIAL SQ ONE ×2 (16:10→16:44)
[2024-09-06] MEDS: BUPIVACAINE (PF) 0.5% 30 ML VIAL SQ ONE ×2 (16:10→16:44)
[2024-09-06] MEDS ORDERED: HYDROcodone/APAP 5-325MG 1 EACH TAB PO PRN (16:59)
[2024-09-06] MEDS ORDERED: ONDANSETRON 4 MG/2 ML VIAL IVP PRN (16:59)
[2024-09-06] MEDS ORDERED: MAGNESIUM HYDROXIDE 2,400 MG/30 ML CUP PO PRN (16:59)
[2024-09-06] MEDS ORDERED: SENNOSIDES-DOCUSATE SODIUM 1 EACH TAB PO PRN (16:59)
--- NOTE | 2024-09-06 17:08 | XR ---
EXAMINATION TYPE: XR lumbar spine 2 or 3V, [place] guidance operating room Intraoperative/procedural fluor oscopic services were provided. CLINICAL INDICATION:Female, 69 years old with history of L4-L5 Fusion; , [facility] FINDINGS: Fluoroscopic images are identified within the document section on PACS. Postsurgical changes from pos terior L4-L5 fusion with intervertebral disc hardware. Hardware appears intact with appropriate align ment. No radiographic evidence for complication. Total fluoroscopy time is 43 seconds. DAP: 743.80 [id number] Please see the operative/procedural note for further details. [facility], , 09/06/2024 5:06 PM
[2024-09-06] MEDS: IPRATROPIUM-ALBUTEROL 3 ML NEB INHALATION STA (17:13)
[2024-09-06] MEDS: HYDROmorphone 0.5 MG/0.5 ML SYRINGE IVP PRN (17:25)
[2024-09-06] MEDS: ACETAMINOPHEN TAB 325 MG TAB PO SCH (18:50)
--- NOTE | 2024-09-06 19:46 | P.CONS ---
History of Present Illness - Reason for Consult Consult date: 09/06/24 medical management Requesting physician: Alfonso Obrien - Chief Complaint lumbar spondylolithiasis s/p L4-L5 TLIF - History of Present Illness Subjective: 69-year-old female with past medical history of CVA/TIA, hyperlipidemia, hypertension, osteoarthritis, here for medical management status post L4-L5 transforaminal lumbar interbody fusion (TLIF). Patient seen and examined at bedside. Alert and oriented x 3. Patient is comfortable with no distress. She stated that she still having back pain but much better after the surgery. Currently, on 2 L nasal cannula. Patient denied headache, change in vision, abdominal pain, chest pain, shortness of breath, weakness. Pertinent positives and negatives as discussed above, a complete review of systems was performed and all other systems are negative. Vitals Signs Reviewed. General: Nontoxic, no distress, appears at stated age Derm: Warm, dry Head: Atraumatic, normocephalic, symmetric Eyes: EOMI, no lid lag, anicteric sclera Mouth: No lip lesion, mucus membranes moist Cardiovascular: S1S2 reg, no murmur Lungs: CTA bilateral, no rhonchi, no rales, no accessory muscle use Abdominal: Soft, nontender to palpation, no guarding, no appreciable organomegaly Ext: No gross muscle atrophy, no edema, no contractures Neuro: CN II-XI grossly intact, no focal neuro deficits Psych: Alert, oriented, appropriate affect Data Reviewed Today: Pertinent Labs: Imaging: Lumbar spine x-ray 09/06 Postsurgical changes from posterior L4-L5 fusion with intervertebral disc hardware.hardware appears intact with appropriate alignment.no radiographic evidence for complication Assessment and Plan: 69-year-old female with past medical history of HTN, HLD, CVA/TIA, depression and anxiety, is here for medical management status post L4-L5 TLIF. #. Lumbar spondylolisthesis status post L4-L5 TLIF. - Pain management by primary team. -PT evaluation in am # Primary Hypertension - Continue home medication Norvasc 5 mg PO QAM - Monitor vital signs #. Hyperlipidemia - Continue Lipitor 20 mg PO QAM #. Anxiety and depression - Continue fluoxetine 40 mg PO QAM #. History of CVA/TIA - in early 1999, not on any antiplatelet at home. would reevaluate outpatient #. History of GERD s/p Niesen fundoplication - in 2022 DVT ppx: Mechanical SCD please d/c dan catheter in AM Code status: Full code Anticipated discharge place: Per primary team Anticipated discharge time: Kennedy Ward MD PGY-1 Internal Medicine Dictation was produced using [employer] dictation software.please excuse any gramm atical, word or spelling errors. I have seen and evaluated the patient today. Discussed with the resident and agree with the residents finding and plan as documented in the resident's note. Changes highlighted in blue font. Past Medical History Past Medical History: CVA/TIA, Hearing Disorder / Deafness, Hyperlipidemia, Hypertension, Osteoarthritis (OA) Additional Past Medical History / Comment(s): Chronic back pain, seasonal allergies, hx cerebral hemorrhage around age 41, bottom of right foot is numb, ringing in ears, migraines. History of Any Multi-Drug Resistant Organisms: MRSA Year Discovered:: 08/04/23 MDRO Source:: GROIN Past Surgical History: Hernia Repair, Hysterectomy, Tonsillectomy Additional Past Surgical History / Comment(s): Epidurals for back pain, Cora 05/21/2022. Past Anesthesia/Blood Transfusion Reactions: No Reported Reaction Past Psychological History: Anxiety, Depression Smoking Status: Never smoker Past Alcohol Use History: Rare Past Drug Use History: None Reported Additional Drug Use History / Comment(s): . - Past Family History Mother Family Medical History: No Reported History Medications and Allergies Home Medications Medication Instructions Recorded Confirmed Type FLUoxetine HCL [PROzac] 40 mg PO QAM 08/31/21 09/06/24 History Lidocaine 5% Patch [Lidoderm 5% 1 patch TRANSDERM DAILY PRN 05/05/22 09/06/24 History Patch] Atorvastatin [Lipitor] 20 mg PO QAM 05/17/23 09/06/24 History HYDROcodone/APAP 5-325MG [[place] 1 tab PO BID PRN 05/17/23 09/06/24 History 5-325] Ibuprofen [Motrin] 600 mg PO TID PRN 05/17/23 09/06/24 History amLODIPine [Norvasc] 5 mg PO QAM 05/17/23 09/06/24 History Allergies Allergy/AdvReac Type Severity Reaction Status Date / Time Dental numbing med AdvReac Rapid Uncoded 09/06/24 14:12 Heart Rate Physical Exam Vitals: Vital Signs Temp Pulse Pulse Resp BP Pulse Ox 09/06/24 18:25 97 14 140/75 97 09/06/24 18:10 99 13 142/76 93 L 09/06/24 17:55 104 H 12 146/96 95 09/06/24 17:40 105 H 15 147/85 100 09/06/24 17:25 98 17 134/74 100 09/06/24 17:10 96.8 F L 93 16 143/80 99 09/06/24 14:10 98.0 F 98 18 146/82 96 Intake and Output 09/06/24 09/06/24 09/06/24 06:59 14:59 22:59 Intake Total 1600 250 Output Total 240 Balance 1600 10 Intake: IV 1600 250 Output: Urine 90 Estimated Blood Loss 150 Other: Weight 75.2 kg
[2024-09-06] MEDS: CYCLOBENZAPRINE 5 MG TAB PO PRN (20:30)
[2024-09-06] MEDS: HYDROcodone/APAP 10-325MG 1 EACH TAB PO PRN (20:30)
[2024-09-06] MEDS: GABAPENTIN 300 MG CAP PO SCH (21:48)
[2024-09-06] MEDS: ATORVASTATIN 20 MG TAB PO SCH (21:48)
[2024-09-06] MEDS: HYDROmorphone 1 MG/ML 1 ML SYRINGE IVP PRN (23:36)
[2024-09-07] MEDS ORDERED: HYDROmorphone 0.5 MG/0.5 ML SYRINGE IVP PRN (07:00)
[2024-09-07] MEDS: HYDROmorphone 0.5 MG/0.5 ML SYRINGE IVP PRN (07:44)
[2024-09-07] MEDS: amLODIPine 5 MG TAB PO SCH (07:46)
[2024-09-07 07:57] LABS: Basophils # (A) 0.02 X 10*3/uL (0.00-0.10); Basophils % (A) 0.1 %; Eosinophils # (A) 0 X 10*3/uL (0.04-0.35); Eosinophils % (A) 0 %; HCT 34.3 % (37.2-46.3); HGB 10.5 g/dL (12.0-15.0); Immature Grans, Automated 0.60 %; Lymphocytes # (A) 0.81 X 10*3/uL (0.90-5.00); Lymphocytes % (A) 5.7 %; MCH 29.4 pg (27.0-32.0); MCHC 30.6 g/dL (32.0-37.0); MCV 96.1 FL (80.0-97.0); Monocytes # (A) 0.92 X 10*3/uL (0.20-1.00); Monocytes % (A) 6.4 %; NRBC Per 100 WBC 0 X 10*3/uL (0.00-0.01); Neutrophils # (A) 12.44 X 10*3/uL (1.80-7.70); Neutrophils % (A) 87.2 %; Platelet Count 412 X 10*3/uL (140-440); RBC 3.57 X 10*6/uL (4.10-5.20); RDW 15.5 % (11.5-14.5); WBC 14.28 X 10*3/uL (4.50-10.00)
[2024-09-07 08:51] LABS: BUN/Creat Ratio 13.67 Ratio (12.00-20.00); Blood Urea Nitrogen 8.2 mg/dL (9.0-27.0); Glucose 129 mg/dL (70-110)
[2024-09-07 08:52] LABS: Anion Gap 9.60 mmol/L (4.00-12.00); Calcium 8.7 mg/dL (8.7-10.3); Carbon Dioxide 25.4 mmol/L (21.6-31.8); Chloride 106 mmol/L (96-109); Potassium 4.7 mmol/L (3.5-5.5); Sodium 141 mmol/L (135-145)
--- NOTE | 2024-09-07 10:20 | CT ---
EXAMINATION TYPE: CT lumbar spine wo con DATE OF EXAM: 09/07/2024 9:47 AM COMPARISON: Plain film CT. CLINICAL INDICATION: Female, 69 years old with history of s/p L4-L5 TLIF; PH[facility], POST OP TECHNIQUE: Multiple axial images were obtained from the midportion of T11 through the sacroiliac quincy nts. Soft tissue and bone windows in coronal and sagittal planes were obtained and reviewed. Contrast used: mL of , (None, if empty). Oral contrast used: (None, if empty). CT DLP: 1121.6 mGycm, Automated exposure control for dose reduction was used. FINDINGS: Postsurgical changes to the lumbar spine with fixation hardware at L5-S1 with transitional vertebrae at L5 with sacralization of the L5 vertebrae. Discectomy L5-S1. Hardware limits evaluation at these l evels. Hardware appears intact. No evidence of fracture. Postsurgical changes in the soft tissues with foci of gas present. Posterior back skin pema are pr esent. Nonobstructing left renal calculus. Small hiatal hernia with postsurgical changes. IMPRESSION: Postsurgical changes without evidence of immediate post operative complication. [facility], , 09/07/2024 10:18 AM
--- NOTE | 2024-09-07 10:28 | P.PN ---
Subjective Progress Note Date: 09/07/24 Principal diagnosis: 1.L4-L5 grade 1 and grade 2 spondylolisthesis unstable 2.neurogenic claudication 3.lower extremity weakness 4. lower extremity paresthesias 5. Low back pain Patient was seen at bedside this morning lying in the semirecumbent position with dressing present over lumbar spine and Varma/catheter in place. Patient says she has been up walking little bit under her own power since surgery yesterday. She says she is looking forward to work with therapy today. She says she is having pain at this time mostly located in the low back. Denies any significant radiation of pain down the left leg. Does have some pain down the right lower extremity. This was present prior to surgery as well. Patient denies any other issues at this time and is hoping to stay 1 more night for additional therapy and pain control Objective - Vital Signs Vital signs: Vital Signs Temp 98.5 F 09/07/24 07:12 Pulse 112 H 09/07/24 07:12 Resp 18 09/07/24 07:12 BP 135/65 09/07/24 07:12 Pulse Ox 92 L 09/07/24 07:12 FiO2 Intake & Output 09/06/24 09/07/24 09/07/24 18:59 06:59 18:59 Intake Total 1850 Output Total 240 1000 Balance 1610 -1000 Weight 75.2 kg 75.2 kg Intake: IV 1850 Output: Urine 90 1000 Estimated Blood Loss 150 Other: Voiding Method Indwelling Catheter - Exam Postoperative surgical dressing appears to be clean, dry, intact over lumbar spine exam. Sensation is somewhat diminished on the right lower extremity from dermatomes L3-L5 on exam. Sensation equal, symmetric, bilat intact throughout the rest of the lower extremities on exam. There is some tenderness to patient over the lumbar spine near incisions on exam. Nontender throughout rest of exam. Patient does have full range of motion in the bilateral lower extremities and hip flexion so extension secondary for pain and stiffness in the low back. Patient does have good range of motion throughout the rest of the lower extremities on exam. 4-/5 in right lower extremity on exam. 4/5 in left lower extremity exam. Radial pulse intact, 2+ bilaterally. Cap refill under 3 seconds in digits of upper extremities. Negative Homans bilaterally. Negative clonus bilaterally. Negative William bilaterally. - Labs CBC & Chem 7: 09/07/24 05:20 09/07/24 05:20 Labs: Abnormal Lab Results - Last 24 Hours (Table) 09/07/24 Range/Units 05:20 WBC 14.28 H (4.50-10.00) X 10*3/uL RBC 3.57 L (4.10-5.20) X 10*6/uL Hgb 10.5 L (12.0-15.0) g/dL Hct 34.3 L (37.2-46.3) % MCHC 30.6 L (32.0-37.0) g/dL RDW 15.5 H (11.5-14.5) % MPV 9.3 L (9.5-12.2) FL Immature Gran # 0.09 H (0.00-0.04) X 10*3/uL Neutrophils # 12.44 H (1.80-7.70) X 10*3/uL Lymphocytes # 0.81 L (0.90-5.00) X 10*3/uL Eosinophils # 0 L (0.04-0.35) X 10*3/uL Assessment and Plan Assessment: 1.L4-L5 grade 1 and grade 2 spondylolisthesis unstable 2.neurogenic claudication 3.lower extremity weakness 4. lower extremity paresthesias 5. Low back pain - Postop day 1 status post L4-L5 right side MIS TLIF Plan: 1.L4-L5 grade 1 and grade 2 spondylolisthesis unstable;neurogenic claudication;lower extremity weakness; lower extremity paresthesias; Low back pain -L4-L5 right-sided MIS TLIF performed yesterday, , 09/06/2024. Patient stable at bedside. Dressing appears to be clean, dry, intact. Plan for dressing change tomorrow. Weightbearing as tolerated with walker. Prescription for LSO brace was signed. Appreciate PT/OT recommendations. Pain medication as needed. We will continue to follow patient during stay in hospital. Plan for discharge home tomorrow. 2. Appreciate medical management 3. Pain management -Holly; Flexeril; gabapentin 4. DVT prophylaxis -mechanical 5. GI prophylaxis -senna 6. PT/OT -weightbearing as tolerated walker as needed. Prescription for LSO brace was signed 7. Encourage incentive spirometer use 8. Discharge planning -plan for discharge home tomorrow Time with Patient: Less than 30
--- NOTE | 2024-09-07 11:07 | P.PN ---
Subjective Progress Note Date: 09/07/24 Subjective: Patient seen and examined at bedside. She was sitting on a chair. No acute events overnight. No new complaints. Pertinent positives and negatives as discussed above, a complete review of syst ems was performed and all other systems are negative. Vitals: Signs Reviewed Physical Exam: General: nontoxic, no distress, appears at stated age Derm: warm, dry, intact Head: atraumatic, normocephalic, symmetric Eyes: EOMI, anicteric sclera Mouth: no lip lesion, mucus membranes moist Cardiovascular: S1 S2 reg, no murmur, rubs, or gallops, Lungs: CTA bilateral, no rhonchi, no rales, no accessory muscle use Extremities: no gross muscle atrophy, no edema, no contractures Neuro: Alert, Oriented, CNII-XII grossly intact, no focal neuro deficits Psych: well appearing, appropriate affect Data Received Today: Pertinent Labs: WBC14.28 , Hgb12.5 Imaging: CT lumbar spine without contrast showed postsurgical changes without evidence of immediate postoperative complication. Assessment and Plan: #Hypertension -Will continue home medication Norvasc 5 mg p.o. daily prior to discharge -Monitor vital signs #Status post L4-L5 transforaminal lumbar interbody fusion (TLIF) -Pain management, bowel regimen, antibiotics by primary team -PT/OT weightbearing as tolerated, walker as needed Chronic #Hyperlipidemia -Continue Lipitor 20 mg p.o. daily #Anxiety and depression -Continue fluoxetine 40 mg p.o. daily DVT ppx: Mechanical SCD Code status: Full Patient is medically optimized for discharge. Cleopatra Lopez MD PGY-1 FM Dictation was produced using [employer] dictation software. please excuse any grammatical, word or spelling errors. I have seen and evaluated the patient today. Discussed with the resident and agree with the residents finding and plan as documented in the resident's note. Changes highlighted in blue font. Objective - Vital Signs Vital signs: Vital Signs Temp 98.5 F 09/07/24 07:12 Pulse 112 H 09/07/24 07:12 Resp 18 09/07/24 07:12 BP 135/65 09/07/24 07:12 Pulse Ox 92 L 09/07/24 07:12 FiO2 Intake & Output 09/06/24 09/07/24 09/07/24 18:59 06:59 18:59 Intake Total 1850 Output Total 240 1000 Balance 1610 -1000 Weight 75.2 kg 75.2 kg Intake: IV 1850 Output: Urine 90 1000 Estimated Blood Loss 150 Other: Voiding Method Indwelling Catheter - Labs CBC & Chem 7: 09/07/24 05:20 09/07/24 05:20 Labs: Abnormal Lab Results - Last 24 Hours (Table) 09/07/24 09/07/24 Range/Units 05:20 05:20 WBC 14.28 H (4.50-10.00) X 10*3/uL RBC 3.57 L (4.10-5.20) X 10*6/uL Hgb 10.5 L (12.0-15.0) g/dL Hct 34.3 L (37.2-46.3) % MCHC 30.6 L (32.0-37.0) g/dL RDW 15.5 H (11.5-14.5) % MPV 9.3 L (9.5-12.2) FL Immature Gran # 0.09 H (0.00-0.04) X 10*3/uL Neutrophils # 12.44 H (1.80-7.70) X 10*3/uL Lymphocytes # 0.81 L (0.90-5.00) X 10*3/uL Eosinophils # 0 L (0.04-0.35) X 10*3/uL BUN 8.2 L (9.0-27.0) mg/dL Glucose 129 H (70-110) mg/dL
[2024-09-07] MEDS: LIDOCAINE 4% PATCH TOPICAL SCH (12:23)
[2024-09-07] MEDS ORDERED: LACTATED RINGERS 500 ML IV ONE (20:56)
[2024-09-07] MEDS: LACTATED RINGERS 500 ML IV ONE (21:44)
[2024-09-08 07:17] LABS: Basophils # (A) 0.03 10*3/uL (0.00-0.10); Basophils % (A) 0.2 %; Eosinophils # (A) 0.07 10*3/uL (0.04-0.35); Eosinophils % (A) 0.6 %; HCT 31.1 % (37.2-46.3); HGB 9.7 g/dL (12.0-15.0); Lymphocytes # (A) 1.96 10*3/uL (0.90-5.00); Lymphocytes % (A) 16.1 %; MCH 29.7 pg (27.0-32.0); MCHC 31.2 g/dL (32.0-37.0); MCV 95.1 fL (80.0-97.0); Monocytes # (A) 1.74 10*3/uL (0.20-1.00); Monocytes % (A) 14.3 %; Neutrophils # (A) 8.28 10*3/uL (1.80-7.70); Neutrophils % (A) 68.3 %; Platelet Count 331 10*3/uL (140-440); RBC 3.27 10*6/uL (4.10-5.20); RDW 16.2 % (11.5-14.5); WBC 12.14 10*3/uL (4.50-10.00)
[2024-09-08 07:36] LABS: African American GFR (CKD) >90 (>60 ml/min/1.73 sqM); Anion Gap 2 mmol/L; Blood Urea Nitrogen 13 mg/dL (7-17); Calcium 8.0 mg/dL (8.4-10.2); Carbon Dioxide 31 mmol/L (22-30); Chloride 105 mmol/L (98-107); Glucose 119 mg/dL (74-99); Non-African American GFR(CKD) >90 (>60 ml/min/1.73 sqM); Potassium 3.5 mmol/L (3.5-5.1); Sodium 138 mmol/L (137-145)
[2024-09-08 07:42] VITALS: BP 131/73; PULSE 113; RESP 18; TEMP 98.3
[2024-09-08] MEDS: SENNOSIDES-DOCUSATE SODIUM 1 EACH TAB PO SCH (08:20)
--- NOTE | 2024-09-08 10:53 | P.PN ---
Subjective Progress Note Date: 09/08/24 Principal diagnosis: 1.L4-L5 grade 1 and grade 2 spondylolisthesis unstable 2.neurogenic claudication 3.lower extremity weakness 4. lower extremity paresthesias 5. Low back pain Patient seen and examined this morning. Patient is resting comfortably in bed. She does report that her pain is not managed on current regimen. Patient did inform me that she is on a pain contract of Percocet 06/23/2024 every 6 hours for chronic pain. Informed patient that she definitely needed to inform staff so that appropriate medication could have been ordered for her. Medications have been adjusted. Patient has been ambulatory within room with walker and tolerating activity well. Surgical dressing to the lumbar spine is clean dry and intact. This may be changed prior to her discharge to an Optifoam dressing. Discharge instructions have been discussed. No acute concerns. Objective - Vital Signs Vital signs: Vital Signs Temp 98.3 F 09/08/24 07:15 Pulse 113 H 09/08/24 08:31 Resp 18 09/08/24 07:15 BP 131/73 09/08/24 07:15 Pulse Ox 92 L 09/08/24 08:32 FiO2 Intake & Output 09/07/24 09/08/24 09/08/24 18:59 06:59 18:59 Intake Total 500 120 Output Total 325 Balance -325 500 120 Intake: Oral 500 120 Output: Urine 325 Other: Voiding Method Indwelling Catheter Toilet # Voids 1 1 - Exam Physical Examination General: The patient is awake and alert, in no acute distress. Skin: Skin is warm and dry with no obvious rashes or lesions. Surgical incision to the lumbar spine, dressing is clean dry and intact. No shadowing noted. Eye: Pupils are equal, round and reactive to light, extra-ocular movements are intact; there is normal conjunctiva bilaterally. Neck: The neck is supple, there is no tenderness and ROM intact. Respiratory: Respirations are non-labored. Gastrointestinal: Soft, non-distended, non-tender abdomen. Back: There is no tenderness to palpation in the midline, paralumbar, parathoracic or buttocks region. There is no obvious deformity. Musculoskeletal: ROM limited secondary to pain and stiffness from surgical procedure. Right: Shoulder abduction 5/5, elbow flexors 5/5, wrist dorsiflexors 5/5. finger abductor 5/5, saturation equipment operator 5/5, hip flexor 5/5, knee flexor 5/5, ankle dorsiflexor 5/5, ankle plantarflexion 5/5 and extensor hallucis 5/5 Left: Shoulder abduction 5/5, elbow flexors 5/5, wrist dorsiflexors 5/5. finger abductor 5/5, saturation equipment operator 5/5, hip flexor 5/5, knee flexor 5/5, ankle dorsiflexor 5/5, ankle plantarflexion 5/5 and extensor hallucis 5/5. Neurological: CN 2-12 intact. There are no obvious motor or sensory deficits. Movement and coordination equal and intact. Sensory exam to light touch intact C5-T1 and intact from L2-S1. Reflexes 2/4 in bilateral upper and lower extremities. Negative Hoffmans, babinski, and clonus signs. Psychiatric: Cooperative, appropriate mood & affect, normal judgment. - Labs CBC & Chem 7: 09/08/24 06:53 09/08/24 06:53 Labs: Abnormal Lab Results - Last 24 Hours (Table) 09/08/24 09/08/24 09/08/24 Range/Units 06:53 06:53 08:51 WBC 12.14 H (4.50-10.00) 10*3/uL RBC 3.27 L (4.10-5.20) 10*6/uL Hgb 9.7 L (12.0-15.0) g/dL Hct 31.1 L (37.2-46.3) % MCHC 31.2 L (32.0-37.0) g/dL RDW 16.2 H (11.5-14.5) % MPV 8.5 L (9.5-12.2) fL Immature Gran # 0.06 H (0.00-0.04) 10*3/uL Neutrophils # 8.28 H (1.80-7.70) 10*3/uL Monocytes # 1.74 H (0.20-1.00) 10*3/uL D-Dimer 1.88 H (<0.60) mg/L FEU Carbon Dioxide 31 H (22-30) mmol/L Glucose 119 H (74-99) mg/dL Calcium 8.0 L (8.4-10.2) mg/dL Assessment and Plan Assessment: Postop day 2: Right L4-L5 minimally invasive TLIF Plan: -Appreciate retirement consultant and team management. -Activity: Ambulate QID, OOB all meals, up and about, limit lifting bending twisting to less than 5 lbs. Use walker or cane if needed for stability. -Daily PT/OT, increase ambulation strength and balance. -Brace when up and about, not needed in bed or chair -Pain control: Adequate at this time -Meds: reviewed -GI ppx: senna, Miralax -DC dan when up and about, bedside commode if needed -DVT PPX: Aspirin 81mg daily -Hygiene: Maintain incision clean and dry. Dressing may be changed to an Optifo am dressing before discharge. -Encourage IS 10x/hr -Dispo: Anticipate discharge home with homecare. *I reviewed and discussed this case with my attending Dr. Bolivar, whom has reviewed this chart and films and is in agreement with assessment and plan of care as outlined above. I have personally seen and examined the patient, performed the documentation and the assessment and plan as written. Number of minutes spent on the visit: [ ].
--- NOTE | 2024-09-08 10:54 | P.DS ---
Providers Date of admission: 09/06/24 Expected date of discharge: 09/08/24 Attending physician: Ricci Bolivar DO Consults: 09/06/24 16:59 Consult Physician Routine Consulting Provider: Juan Vergara Consult Reason/Comments: medical management s/p L4-L5 TLIF Do you want consulting provider notified?: Yes Primary care physician: [facility] Course: Hospital Course: The patient was evaluated preoperatively and found to have the diagnosis of L4- L5 spondylolisthesis with stenosis. They underwent appropriate preoperative care and were willing to undergo the intended procedure. They underwent a successful right L4-L5 minimally invasive TLIF, were recovered appropriately and sent to the floor. While on the floor they worked with physical therapy, occupational therapy and nursing to enhance their recovery experience. Their pain was well controlled through their stay and they were started on appropriate medications, DVT ppx modalities, activity and dietary needs. Daily labs were monitored closely, and transfusions were only used when necessary. Medicine as well as other consulting services have made their input and have helped with our team approach and multidisciplinary care. PT milestones have been met and passed and they have made the recommendation of home with home care for this patient and treating providers agree with this care path. The patient will be discharged home with appropriate medications, instructions and follow-up information and in stable condition. Patient Condition at Discharge: Good Plan - Discharge Summary Discharge Rx Participant: Yes New Discharge Prescriptions: New cefaDROXiL [Duricef] 500 mg PO Q12HR #10 cap Naproxen [Naprosyn] 500 mg PO BID 14 Days #28 tablet oxyCODONE HCL/ACETAMINOPHEN [Percocet 10-325 mg] 1 tab PO Q4HR PRN #40 tab PRN Reason: Pain Sennosides/Docusate Sodium [Senna Plus 8.6-50 mg Tablet] 2 each PO DAILY PRN #20 tab PRN Reason: Constipation Cyclobenzaprine [Flexeril] 5 mg PO TID #40 tablet No Action amLODIPine [Norvasc] 5 mg PO QAM HYDROcodone/APAP 5-325MG [[place] 5-325] 1 tab PO BID PRN PRN Reason: Pain FLUoxetine HCL [PROzac] 40 mg PO QAM Lidocaine 5% Patch [Lidoderm 5% Patch] 1 patch TRANSDERM DAILY PRN PRN Reason: Pain Ibuprofen [Motrin] 600 mg PO TID PRN PRN Reason: Pain Atorvastatin [Lipitor] 20 mg PO QAM Discharge Medication List FLUoxetine HCL [PROzac] 40 mg PO QAM 08/31/21 [History] Lidocaine 5% Patch [Lidoderm 5% Patch] 1 patch TRANSDERM DAILY PRN 05/05/22 [History] Atorvastatin [Lipitor] 20 mg PO QAM 05/17/23 [History] HYDROcodone/APAP 5-325MG [[place] 5-325] 1 tab PO BID PRN 05/17/23 [History] Ibuprofen [Motrin] 600 mg PO TID PRN 05/17/23 [History] amLODIPine [Norvasc] 5 mg PO QAM 05/17/23 [History] Cyclobenzaprine [Flexeril] 5 mg PO TID #40 tablet 09/08/24 [Rx] Naproxen [Naprosyn] 500 mg PO BID 14 Days #28 tablet 09/08/24 [Rx] Sennosides/Docusate Sodium [Senna Plus 8.6-50 mg Tablet] 2 each PO DAILY PRN #20 tab 09/08/24 [Rx] cefaDROXiL [Duricef] 500 mg PO Q12HR #10 cap 09/08/24 [Rx] oxyCODONE HCL/ACETAMINOPHEN [Percocet 10-325 mg] 1 tab PO Q4HR PRN #40 tab 09/08/24 [Rx] Follow up Appointment(s)/Referral(s): [facility] [REFERRING] - As Needed (Please call for assist with Disability application) [facility] [NON-STAFF] - As Needed (walker) Ricci Bolivar DO [Doctor of Osteopathic Medicine] - 2 Weeks [facility] [NON-STAFF] - As Needed (LSO back brace) Activity/Diet/Wound Care/Special Instructions: Spine Discharge and Recovery Instructions Date of Surgery: 09/06/2024 Diagnosis: L4-L5 spondylolithesis with stenosis Procedure: Right L4-L5 minimally invasive TLIF Medications: See medication list All medication refills should be obtained through your primary care doctor or your clinic spine surgeon. Please discuss prescription refills at your follow up appointment. Do not call the hospital for medication refills. Activity: Encourage ambulation with assist of walker, Up and about 6-8x daily PT/OT daily work on balance, strength and mobility Up in chair with all meals Shower daily Brace: Use brace when up and about, do not wear in bed or shower Dressing: Leave your dressing in place for a total of 3 days post operatively. Then you may remove your dressing and leave open to air. Keep the area clean and if not able to keep area clean, then cover with sterile gauze and tape. Showering: You may shower 3 days after your procedure allowing soap and water to run over incision. Do not scrub. Do not soak. Blot dry. Follow up: Please confirm a follow up appointment with your surgeon 2 weeks post operatively. Please make an appointment to follow up with your PCP in 1-2 weeks after surgery for evaluation '3 phase, 3-week plan' POST OP WEEKS 1-3 1. Lifting/carrying/pushing/pulling limited to less than 5 pounds. 2. Do not sit for longer than 15 minutes at one time. Get up and walk around. Prolonged sitting is NOT advised. If you lay down, see if you can tolerate laying down on you front (belly side) 3. Walk for periods of 15 minutes = 1 mile but no longer; do it multiple times times each day. 4. Ice your low back after activity. POST OP WEEKS 3-6 1. Lifting limited to less than 20 pounds. 2. Do not sit for longer than 30 minutes at a time. Frequently change positions. Use a sit-to stand workstation or take frequent breaks from sitting if you have returned to work. 3. Walk for 30 minutes each day. If possible, do these three or more times a day POST OP WEEKS 6+ At your 6-week appointment we will give you a physical therapy referral to focus on a core stabilization and strengthening program. You should also work on leg & buttock strengthening, hamstring & quadriceps stretching, and continue a low impact aerobic activity program such as swimming, walking, or riding a stationary bicycle. During the initial 6 weeks after your surgery, you are at the highest risk of re-injuring your spine. You should generally avoid BLT's (bending, lifting and twisting combination motions) and follow the above guidelines to reduce the chance of reinjury. You can anticipate post op appointments in our office at approximately 3 weeks and 6 weeks after your surgery. INCISION CARE: If your incision is not draining you do NOT need to cover it with a dressing. Keep your incision clean, dry and intact. In most cases, we apply skin glue, pema or sutures to the incision at the time of surgery. This will be like a crust or have the appearance of a scab and will fall off in time on its own. The stitches or pema need to be removed at 3 weeks post op appointment. You may begin to shower 3 days after surgery (this allows the glue to corado well). However, please avoid scrubbing the incision site or peeling off any of the skin glue. This will ensure optimal healing of your incision. Also, during this time avoid soaking the incision area in water - this includes swimming pools, hot tubs or baths. No ointments, lotions or oils on the incision until your surgeon allows. Leave pema, sutures or glue in place. Neurological dysfunction that comes on suddenly can also be a sign of a stroke. Below some common symptoms of a stroke are listed: B - balance difficulty such as sudden onset walking or leaning to one side - NEW E - eye problem such as sudden double vision or trouble seeing on one side - NEW F - Facial weakness or numbness on one side - NEW A - Arm or leg weakness or numbness on one side - NEW S - Slurred speech or difficulty with word finding - NEW T - Time is BRAIN! Call 911 as soon as you recognize these symptoms Diet: Consume a regular diet rich in vegetables and lean protein such as chicken or fish. You should consume in a ratio of approximately 20% fats|40% carbohydrates|40%protein. Vegetables, sweet potatoes, brown rice or quinoa are examples of good carbohydrates. Chips, white bread, cookies and sweets/sugar are examples of bad carbohydrates. Limit your bad carbs, go wild with good carbs. "Life's Simple 7" Guidelines as per [place] [employer] These will help you reclaim your life after surgery and photographer helper in your recovery, keeping in mind your restrictions. (1) Get Active. Physical activity can help people lose weight, control high blood pressure and cholesterol, feel emotionally better, and sleep better. (2) Control Cholesterol. Avoid a diet high in saturated fat, trans fat, & cholesterol. Limit whole milk & cream, ice cream, butter, egg yolks, processed meats (like sausage and hot dogs), and fatty meats. Choose healthy foods that are low in saturated fat, trans fat and cholesterol which include: Fruits and vegetables, fiber rich grain products (like whole grain pasta and brown rice), lean meat such as chicken, fish, nuts, seeds, and legumes. (3) Eat Better. Eat small portions. Shop at the grocery with a list and do not stray from it. Tips for a healthy diet include: Limit sodium intake to less than 1500mg daily, avoid prepackaged, processed, and fast foods, choose a diet rich in fruits, vegetables, and whole grain, high fiber foods, and limit saturated & cholesterol in your diet. (4) Manage Blood Pressure. If you have high blood pressure, you should have a cuff at home so that you can check your blood pressure regularly. Be sure you have a good cuff. An arm one is generally better than a wrist one. Bring the cuff to a doctor's appointment to validate that the measurements that your cuff are taking are accurate. Take your blood pressure twice daily when you are sitting down and relaxing. Record the numbers in a log and bring this log with you to your doctors' appointments. (5) Lose Weight if your BMI is above 25. A healthy BMI is between 19-25. To calculate Your BMI, you may use a Standard BMI Calculator on the NIH BMI website: <www.nhlbi.nih.gov/guidelines/obesity/BMI/bmicalc.htm>. Weigh oneself daily. If you are overweight, set a goal to lose weight. A pound a week loss if needed is a good target. (6) Reduce Blood Sugar. Limit foods and liquids with "added sugars." (Added sugars include sucrose, fructose, glucose, maltose, dextrose, high fructose corn syrup, corn syrup, concentrated fruit juice and honey). (7) Stop Smoking. If you smoke, quitting smoking is one of the best things that you can do for your health. Smoking increases your risk of heart attack, stroke, and peripheral vascular disease, which is a build-up of plaque in your arteries. Please discard all the cigarettes and lighters in your house. Have a plan for what you will do when you have the urge to smoke. Direct and second- hand smoke shortens your life as well as the lives of your family, friends and others around you. For your health and the health of those around you, please consider quitting! Proper Bending Body Mechanics: Maintain a wide stance with one foot slightly in front of the other. Keep your back straight. Bend utilizing the strength in your hips and knees. Do not bend at the waist. Maintain the lifted object at your waist-level close to your body. Avoid lifting weight that causes immediately pain or pain anywhere in the body afterwards. Smoking/Nicotine If there was ever one thing that you could do to increase your overall health, decrease your risk of cardiovascular problems by about 39% the second you make the choice, it is to STOP SMOKING. Your body's most instant gratification is the second you stop smoking. We have all heard the studies, read the articles but it is true, smoking is extremely bad for your overall health, and moreover it is detrimental to your bone health. Nicotine, IN ANY FORM, kills bone cells, prevents your body from healing fractures, and significantly prolongs healing after surgery. In spine surgery specifically, it increases your risk of not healing your bones to create a fusion and increases your risk of having a revision surgery due to this up to 60%. I know it is hard. I know it feels impossible. But there are ways. Take control of your life. We are here to help you through it. And when you are ready, ask us and we can direct you to help if you desire. Use the START Plan to Quit Smoking (please visit the Helpguide.org website listed below for more information): S = Set a quit date. Choose a date within the next 2 weeks, so you have enough time to prepare without losing your motivation to quit. If you mainly smoke at work, quit on the weekend, so you have a few days to adjust to the change. T = Tell family, friends, and co-workers that you plan to quit. Let your friends and family in on your plan to quit smoking and tell them you need their support and encouragement to stop. Look for a quit alan who wants to stop smoking as well. You can help each other get through the rough times. A = Anticipate and plan for the challenges you'll face while quitting. Most people who begin smoking again do so within the first 3 months. You can help yourself make it through by preparing ahead for common challenges, such as nicotine withdrawal and cigarette cravings. R = Remove cigarettes and other tobacco products from your home, car, and work. Throw away all your cigarettes (no emergency pack!), lighters, ashtrays, and matches. Wash your clothes and freshen up anything that smells like smoke. Shampoo your car, clean your drapes and carpet, and steam your furniture. T = Talk to your doctor about getting help to quit. Your doctor can prescribe medication to help with withdrawal and suggest other alternatives. If you can't see a doctor, you can get many products over the counter at your local pharmacy or grocery store, including the nicotine patch, nicotine lozenges, and nicotine gum. Resources for Quitting Smoking: <https://www.[place].gov/documents/[facility]/Quit_Tobacco_Resources_for_patients_313 480_7.pdf> Supplementation: Take recommended dosages of Vitamin D and Calcium to help fortify your bones and help them to heal. See your health maintenance packet for dosages and recommended levels. DVT/VTE prophylaxis: You will be given compression stockings from the hospital. Wear these daily for the first two weeks after surgery. You may take them off at night. You may be prescribed a medication to help thin your blood. Take this as directed. If you are not prescribed this medication, early and frequent ambulation has been shown to be the best prophylaxis to deep vein thrombosis and sequelae related to this event. Discharge Disposition: HOME WITH HOME HEALTH SERVICES
[2024-09-08] MEDS: oxyCODONE-APAP 10-325MG 1 EACH TAB PO PRN (11:23)
--- NOTE | 2024-09-08 11:27 | P.PN ---
Subjective Progress Note Date: 09/08/24 Patient reports worsening pain today. Patient is at the pain is from the front of her hips and radiates to her back. Has been up to use the restroom a couple times. Denies any shortness of breath Objective - Vital Signs Vital signs: Vital Signs Temp 98.3 F 09/08/24 07:15 Pulse 113 H 09/08/24 08:31 Resp 18 09/08/24 07:15 BP 131/73 09/08/24 07:15 Pulse Ox 92 L 09/08/24 08:32 FiO2 Intake & Output 09/07/24 09/08/24 09/08/24 18:59 06:59 18:59 Intake Total 500 120 Output Total 325 Balance -325 500 120 Intake: Oral 500 120 Output: Urine 325 Other: Voiding Method Indwelling Catheter Toilet # Voids 1 1 - Exam Vitals Signs Reviewed. General: Nontoxic, no distress, appears at stated age Derm: Warm, dry Head: Atraumatic, normocephalic, symmetric Eyes: EOMI, no lid lag, anicteric sclera Mouth: No lip lesion, mucus membranes moist Cardiovascular: Tachycardic. Regular rhythm. No murmurs appreciated. Lungs: CTA bilateral, no rhonchi, no rales, no accessory muscle use Abdominal: Soft, nontender to palpation, no guarding, no appreciable organomegaly Ext: Tenderness to bilateral hips. No gross muscle atrophy, no edema, no contractures Neuro: CN II-XI grossly intact, no focal neuro deficits Psych: Alert, oriented, appropriate affect - Labs CBC & Chem 7: 09/08/24 06:53 09/08/24 06:53 Labs: Abnormal Lab Results - Last 24 Hours (Table) 09/08/24 09/08/24 09/08/24 Range/Units 06:53 06:53 08:51 WBC 12.14 H (4.50-10.00) 10*3/uL RBC 3.27 L (4.10-5.20) 10*6/uL Hgb 9.7 L (12.0-15.0) g/dL Hct 31.1 L (37.2-46.3) % MCHC 31.2 L (32.0-37.0) g/dL RDW 16.2 H (11.5-14.5) % MPV 8.5 L (9.5-12.2) fL Immature Gran # 0.06 H (0.00-0.04) 10*3/uL Neutrophils # 8.28 H (1.80-7.70) 10*3/uL Monocytes # 1.74 H (0.20-1.00) 10*3/uL D-Dimer 1.88 H (<0.60) mg/L FEU Carbon Dioxide 31 H (22-30) mmol/L Glucose 119 H (74-99) mg/dL Calcium 8.0 L (8.4-10.2) mg/dL Assessment and Plan Assessment: Relevant laboratory results: WBC: 12.14, Hgb: 9.7, NA: 138, K: 3.5, creatinine: 0.61, D-dimer: 1.88, calcium: 8.0 EKG independently interpreted, shows T wave inversion in lead III, similar to prior 1. Tachycardia likely secondary to postoperative pain # EKG ordered overnight showed sinus tachycardia similar to previous EKG # D-dimer elevated at 1.88 most likely due to patient's recent surgery. Patient was able to be discharged without supplemental O2 -Patient recommended to follow up with PCP 2. Lumbar spondylolisthesis status post L4-L5 TLIF. - Pain management by primary team 3. Primary Hypertension - Continue home medication Norvasc 5 mg PO QAM 4. Hyperlipidemia - Continue Lipitor 20 mg PO QAM 5. Anxiety and depression - Continue fluoxetine 40 mg PO QAM 6. History of CVA/TIA - Follow up outpatient with PCP DVT prophylaxis: SCDs per primary Patient is medically optimized for discharge. Les Jolley MD PGY-1 TY Dictation was produced using [employer] dictation software. please excuse any grammatical, word or spelling errors. I have seen and evaluated the patient today. Discussed with the resident and agree with the residents finding and plan as documented in the resident's note. Changes highlighted in blue font.
--- NOTE | 2024-09-19 20:16 | P.OP ---
Date of Procedure: 09/06/24 Preoperative Diagnosis: 1. L4-5 SPONDYLOLISTHESIS GRADE I UNSTABLE 2. L4-5 SPONDYLOSIS WITH STENOSIS AND RADICULOPATHY 3. LE WEAKNESS 4. MECHANICAL LOW BACK PAIN Postoperative Diagnosis: 1. L4-5 SPONDYLOLISTHESIS GRADE I UNSTABLE 2. L4-5 SPONDYLOSIS WITH STENOSIS AND RADICULOPATHY 3. LE WEAKNESS 4. MECHANICAL LOW BACK PAIN Procedure(s) Performed: 1. L4-5 POSTERIOLATERAL AND INTERBODY FUSION (50898) 2. L4-5 INSTRUMENTATION (90026) 3. L4-5 LAMINOFORAMINOTOMY AND DECOMPRESSION (56511) 4. INSERTION OF BIOMECHANICAL DEVICE (86238) 5. USE OF YELITZA NAVIGATION (71047) USE OF IONM Implants: YELTIZA EVEREST RODS AND SCREWS GLOBUS SABLE CAGE ARTHROCELL, ALLOCELL, CONTOUR, DBM, AUTOGRAFT Anesthesia: GETA Surgeon: Ricci Bolivar Engineer Process #1: Alfonso Obrien (WAS PRESENT AND ASSISTED WITH ALL ASEPCTS OF THE CASE FROM POSITION TO DRESSING PLACEMENT) Estimated Blood Loss (ml): 150 IV fluids (ml): 1,100 Urine output (ml): 250 Pathology: none sent Condition: stable Disposition: PACU Indications for Procedure: Ms. Welsh, a 56-year-old female, presents with severe low back pain, bilateral lower extremity radiculopathy with right-sided weakness, and neurogenic gaetano dication. Imaging reveals an unstable L4-L5 grade 1-2 spondylolisthesis with 10mm anterior translation on flexion and significant reduction on extension, along with severe facet arthrosis at L4-L5 and L5-S1. MRI demonstrates moderate to severe central and foraminal stenosis, particularly pronounced in flexed positions. After thorough examination and discussion of treatment options, an URGENT L4-L5 right-sided minimally invasive transforaminal lumbar interbody fusion was recommended due to the progressive neurological deficits and risk of further deterioration. The patient was counseled extensively on surgical risks, benefits, and alternatives, and has agreed to consider proceeding with surgery. Preoperative clearance from her PCP is required. Medical management includes a methylprednisolone dose pack and gabapentin 300mg TID for symptom control. Patient will follow up in 2 weeks to finalize surgical planning and complete presurgical requirements. Educational materials regarding the procedure were provided, and all questions were addressed during this 25-minute consultation. Surgical Plan: URGENT L4-L5 right-sided minimally invasive transforaminal lumbar interbody fusi on Description of Procedure: L4-L5 MIS TLIF EDUARDO The patient was seen and examined in the preoperative area. All preoperative protocols were followed. Informed consent was obtained, risks and benefits of the procedure were discussed at length. Risks including bleeding infection damage to the surrounding tissue and risk of reoperation were discussed with the patient. Risk of anesthesia up to and including was discussed with the patient. These are outlined in the risk review. They were willing to accept these risks and all the risks of surgery. The patient was given a weight-based dose of antibiotics in the form of 2 g Ancef. The patient was seen and evaluated by the anesthesia team who deemed them fit for surgery. The site was marked, the patient was willing to proceed with the procedure. The patient was transferred to the operative suite by the Department of anesthesia. They were then drifted off to sleep by the department anesthesia and GETA was performed. The patient tolerated this well. Varma catheter was placed by nursing staff, a-traumatically. Once confirmation of lines and ventilation the patient was transferred to a prone Michael table very carefully. All bony prominences including wrists, elbows, axilla, chest, hips, and thighs, and feet were padded very well. Special attention was paid to the genitalia, and these were padded accordingly. SCDs were placed on bilateral lower extremities and were connected. Arms were well padded and placed on arm boards up and out in the 90/90 position. Once in position, again we confirmed good ventilation capabilities and that lines were running appropriately. The patients Lumbar spine was then exposed. 1010s were placed outlining the incision site. Standard alcohol was used to clean the incision site and allowed to dry. C-arm was used to needle localize the pedicles at L4-5 and bio-matt the patient and confirm level for incision which was marked with a skin marker. Operative briefing was performed with all teams and everyone in agreement to proceed. The patient was then prepped and draped in a normal sterile fashion. Timeout was then performed, and all parties agreed with the procedure to be performed. Skin nicks made and pins placed in the PSIS on the right for the Ship It Bag Check tracker. 3D Zheim spin was then registered and confirmed to be accurate. Navigated jamshidi and drill-guide were then used to target pedicles bilaterally at L4 and L5. Once accessed, wires were placed in their void. This was repeated at L5 bilaterally. Skin incision was then made along these wires and a perfect scalpel was used over the wire to create a path and measure screw length. Screws were then placed over wires on the contralateral side. Once the screw was at the back of the body wire was removed. The screws were confirmed to be in good position on AP and lateral. We then tested screws and they all tested above 20 mA. Attention was then turned to interbody fusion at L4-5. Tubular retractor system was placed at the interspace of L4-5 using a biplanar c arm. Once in position and dilated up to 26mm tube it was locked to the bed and confirmed in good position. Microscope was then brought in for visualization. Limited myomectomy was performed and laminectomy, complete facetectomy and foraminotomy performed at L4-5 using high speed delfin and Kerrison rongeur. The ligamentum was removed and the dural sac decompressed. Exiting and traversing roots visualized and decompressed. Neural elements were then protected, and disc space accessed with an osteotome. Sequential shaving then done under lateral imaging and complete discectomy performed using samreen, pituitary and curettes. Once good bleeding endplates accomplished and good height sikh with trials, a combination of autograft, allograft and synthetic placed anterior in the disc space. The cage was then selected and impacted into place under lateral imaging. The cage was then expanded restoring height, lordosis and alignment. The cage was backfilled with bone graft through a funnel. The process coach was removed and the area inspected. Good cage placement, stable cage and no injuries. Area was irrigated copiously, and meticulous hemostasis achieved. The tubular retractor was then removed under direct visualization. Screws were then selected and placed over the previously placed wires on the ipsilateral side. This was done in the fashion described above. Screws were then tested, and all tested above 20 mA. Shells were then placed on the tabs. Naren length was then measured, and rods selected. They were then placed through the MIS tabs, subfascial and locked into L5 bilateral and sequentially reduced into L4 for listhesis reduction. These were then locked into place with set screws and finally tightened. Naren holders removed and images taken showing good placement of rods, good lordosis and sikh of height. Tabs were broken off. Wounds were then copiously irrigated with NSS. Van Lear used for TP decortication and mixture of MagnatOs, allograft and autograft packed posterolateral. Fascia was then closed with 0 Vircyl on a Scorpion suture passer for MIS cl osure. Deep subq closed with 0 Vicryl. Superficial subq closed with 2-0 Vicryl and skin with pema. Wound edges approximated very well. Wound was then cleaned with alcohol and dried. Wounds dressed in Optifoam dressings. The patient was then transferred off the table back to their hospital bed a- traumatically. They were extubated by the department of anesthesia. They were then transferred to PACU in stable condition having tolerated the procedure with no complications.
== END 2024-09-08 12:39 | disposition home health service (06) ==
LOC: OR 13:52 → 4SSUR 16:51 → OR 09-08 12:39
PROVIDERS: ATTEND Orthopaedic Surgery
DX: M48.061 Spinal stenosis, lumbar region without neurogenic claudication (principal); M47.26 Other spondylosis with radiculopathy, lumbar region; M43.16 Spondylolisthesis, lumbar region; E66.9 Obesity, unspecified; E78.5 Hyperlipidemia, unspecified; I10 Essential (primary) hypertension; F41.9 Anxiety disorder, unspecified; F32.A Depression, unspecified; F17.210 Nicotine dependence, cigarettes, uncomplicated; M19.90 Unspecified osteoarthritis, unspecified site; G43.909 Migraine, unspecified, not intractable, without status migrainosus; J30.2 Other seasonal allergic rhinitis; Z68.25 Body mass index [BMI] 25.0-25.9, adult; Z86.73 Personal history of transient ischemic attack (TIA), and cerebral infarction without residual deficits; Z98.1 Arthrodesis status; Z90.710 Acquired absence of both cervix and uterus; Z98.890 Other specified postprocedural states; Z79.82 Long term (current) use of aspirin; Z79.899 Other long term (current) drug therapy
CPT/HCPCS: 94760; 97161; 97166; 85379; 80048 ×2; 85025 ×2; 72100; 72131; 22633; 63052; 22840; 22853; 22859; 20930; 20936; C1713; C1734; J2250; J0330; J1100; J2710; J0690 ×3; J2405; J3010; J1171 ×4; J2704; J2003; J2371; J0665; J1596